=== PATIENT | female | born 1995 | race African-American/Black ===

== ENCOUNTER 2016-07-19 18:41 | Emergency (ER) | payer SELFPAY ==
[2016-07-19] MEDS ORDERED: IBUPROFEN 800 MG TABLET PO ONE (20:05)
--- NOTE | 2016-07-19 20:05 | ER Document Report ---
ED Medical Screen (RME) - General Chief Complaint: Toothache Stated Complaint: TOOTH PAIN Time seen by provider: 20:03 Mode of Arrival: Ambulatory Information source: Patient Notes: 21-year-old female presents to ED for dental pain to the right lower jaw next to the back tooth started 2 days ago. This tooth is broken off at the jaw line. Last menstrual period 06/15/2016. She states she took a test which was negative. I have greeted and performed a rapid initial assessment of this patient. A comprehensive ED assessment and evaluation of the patient, analysis of test results and completion of medical decision making process will be conducted by an additional ED providers. TRAVEL OUTSIDE OF THE [place] IN LAST 30 DAYS: No - Related Data Allergies/Adverse Reactions: No Known Drug Allergies Allergy (Verified 09/30/15 13:29) Shellfish * [Shellfish] Allergy (Verified 09/30/15 13:29) swelling strawberry Allergy (Verified 09/30/15 13:29) swelling Past Medical History - Social History Family history: Reviewed & Not Pertinent Pulmonary Medical History: Reports: Hx Asthma Neurological Medical History: Reports: Hx Migraine Psychiatric Medical History: Reports: Hx Attention Deficit Hyperactivity Disorder, Hx Bipolar Disorder, Hx Depression, Hx Schizophrenia Past Surgical History: Reports: Hx Oral Surgery - Immunizations Immunizations up to date: Yes Hx Diphtheria, Pertussis, Tetanus Vaccination: Yes Physical Exam - Vital signs Vitals: Temp Pulse Resp BP Pulse Ox 99.6 F 97 20 114/76 100 07/19/16 19:56 07/19/16 19:56 07/19/16 19:56 07/19/16 19:56 07/19/16 19:56 Course - Vital Signs Vital signs: Temp Pulse Resp BP Pulse Ox 99.6 F 97 20 114/76 100 07/19/16 19:56 07/19/16 19:56 07/19/16 19:56 07/19/16 19:56 07/19/16 19:56
[2016-07-19] MEDS ORDERED: HYDROCODONE/ACETAMINOPHEN 5-325 MG 6 TAB/DSPK PO PRN (22:17)
[2016-07-19 22:18] VITALS: BP 111/77
[2016-07-19] MEDS ORDERED: AMOXICILLIN TR/POT CLAVULANATE 500-125 MG TAB PO ONE (22:18)
--- NOTE | 2016-07-19 22:24 | ER Document Report ---
ED General - General Chief Complaint: Toothache Stated Complaint: TOOTH PAIN Mode of Arrival: Ambulatory Information source: Patient Notes: Patient is a 21 year old female who presents with 2 day history of right lower jaw pain and toothache. She states the pain radiates to her right ear and was told by her mother she had a fever but doesn't remember what the temperature was. She has not seen a dentist for this. She has tried [id number] ibuprofen with no relief. Denies any drainage, chills, difficulty breathing or difficulty swallowing, nausea or vomiting. TRAVEL OUTSIDE OF THE [place] IN LAST 30 DAYS: No - Related Data Allergies/Adverse Reactions: No Known Drug Allergies Allergy (Verified 09/30/15 13:29) Shellfish * [Shellfish] Allergy (Verified 09/30/15 13:29) swelling strawberry Allergy (Verified 09/30/15 13:29) swelling Past Medical History - General Information source: Patient - Social History Smoking Status: Current Every Day Smoker Chew tobacco use (# tins/day): No Frequency of alcohol use: None Drug Abuse: None Family History: Reviewed & Not Pertinent, Other - gall bladder Patient has suicidal ideation: No Patient has homicidal ideation: No Pulmonary Medical History: Reports: Hx Asthma Neurological Medical History: Reports: Hx Migraine Renal/ Medical History: Denies: Hx Peritoneal Dialysis Psychiatric Medical History: Reports: Hx Attention Deficit Hyperactivity Disorder, Hx Bipolar Disorder, Hx Depression, Hx Schizophrenia Past Surgical History: Reports: Hx Oral Surgery - Immunizations Immunizations up to date: Yes Hx Diphtheria, Pertussis, Tetanus Vaccination: Yes Review of Systems - Review of Systems Constitutional: See HPI EENT: See HPI Cardiovascular: No symptoms reported Respiratory: No symptoms reported Gastrointestinal: No symptoms reported Genitourinary: No symptoms reported Female Genitourinary: No symptoms reported Musculoskeletal: No symptoms reported Skin: No symptoms reported Hematologic/Lymphatic: No symptoms reported Neurological/Psychological: No symptoms reported Physical Exam - Vital signs Vitals: Temp Pulse Resp BP Pulse Ox 99.6 F 97 20 114/76 100 07/19/16 19:56 07/19/16 19:56 07/19/16 19:56 07/19/16 19:56 07/19/16 19:56 Interpretation: Normal - Notes Notes: PHYSICAL EXAM: CONSTITUTIONAL: Alert and oriented, in no acute distress. Appears uncomfortable but non-toxic. HENT: Normocephalic, atraumatic. Dental decay to teeth #31-32 with mild gingival swelling, no evidence of fluctuant abscess. Oropharynx clear without erythema, tonsilar exudate or malocclusion. Trachea midline. Uvula midline. Moist mucous membranes. EYES: Pupils equal round and reactive to light, EOM intact. Sclera anicteric, conjunctiva are normal. No entrapment. NECK: supple without lymphadenopathy. No midline tenderness or paraspinous muscle spasms. No step-offs or deformities. ROM intact. HEART: Regular rate and rhythm without murmurs. LUNGS: CTAB and equal. No wheezes, rales or rhonchi. EXTREMITIES: Normal range of motion, no pitting edema. No cyanosis. Cap Refill < 3 seconds. SKIN: Warm and dry. Normal turgor. No rashes or lesions noted. Course - Re-evaluation Re-evalutation: 07/19/16 22:20 Patient seen and examined. Dental decay to teeth #31-32 with mild gingival swelling but no fluctuant abscess. VSS, non-toxic in appearance. Will treat empirically with antibiotics and pain medication, first dose given here. Advised to follow-up with dentist - provided affordable options. At this time, will discharge with return precautions and follow-up recommendations. Verbal discharge instructions given at the bedside and opportunity for questions given. Medication warnings reviewed. Patient is in agreement with this plan and has verbalized understanding of return precautions and the need for primary care follow-up in the next 24-72 hours. - Vital Signs Vital signs: Temp Pulse Resp BP Pulse Ox 99.6 F 87 16 111/77 98 07/19/16 19:56 07/19/16 22:17 07/19/16 22:17 07/19/16 22:17 07/19/16 22:17 Discharge - Discharge Clinical Impression: Dental decay, Toothache Condition: Stable Disposition: HOME, SELF-CARE Additional Instructions: TOOTHACHE: Your pain is due to dental decay. The tooth must be repaired in order for you to feel better. You will, therefore, be referred to a dentist. We do not have dentists on the staff at [facility]. Severe swelling or drainage around a tooth usually means a dental abscess. This also requires evaluation and treatment by the dentist, but antibiotics may be prescribed while awaiting dental treatment. You should be rechecked immediately if you develop major swelling of the face, increasing pain, a lump in the jaw or gums, headache, difficulty swallowing, or fever. ORAL NARCOTIC MEDICATION: You have been given a prescription for pain control. This medication is a narcotic. It's best taken with food, as nausea can result if taken on an empty stomach. Don't operate machinery or drive within six hours of taking this medication. Do not combine this medicine with alcohol, or with any medication which can cause sedation (such as cold tablets or sleeping pills) unless you get permission from the physician. Narcotics tend to cause constipation. If possible, drink plenty of fluids and eat a diet high in fiber and fruits. Please be aware that prescription narcotics also have the potential for abuse. People become addicted to these medications because of the general sense of wellbeing that they induce. This feeling along with a significant reduction in tension, anxiety, and aggression provides a stimulating seductive quality to these drugs. Once your pain is under control, we encourage you to discard your unused narcotics. FOLLOW-UP CARE: You have been referred for follow-up care to the dentists listed below. Call the dentists office for an appointment as you were instructed or within the next two days. If you experience worsening or a significant change in your symptoms, notify the physician immediately or return to the Emergency Department at any time for re-evaluation. [facility] [address] [place], [place] Tuesday mornings, by appointment [facility] [address] [place] [address] [facility] [address] [facility] [address] [facility] [address] [facility] [employer] [facility] [address] [email or web address] [address] [place] [address] Tuesday- 8:00am to 5:00 pm Will see patients from other [facility]. Charges based on income and family size and accepts Medicare, Medicaid, and Insurances Will pull molars [facility] [address] Hours of Operation 8:00 am - 4:30 pm weekdays The following dental offices accept Medicaid: [facility] Dr. Sawyer Dr. Morales Dr. Cleary Dr. Moore Lizandro Crocker, [place], and [place] oral surgery Dr. Gold ([place]) Dr. Dey ([place]) [facility] Drs. Fisher and Samuel ([place]) Dr. Shelley ([place]) [facility] Dr. Li ([place]) Drs. Gurrola and ([place]) Medicaid Care Line Prescriptions: Amox Tr/Potassium Clavulanate [Augmentin 875-125 Tablet] 1 tab PO BID 10 Days Hydrocodone/Acetaminophen [[place] 5-325 mg Tablet] 1 tab PO Q6H PRN #10 tablet PRN Reason: Ibuprofen [Motrin 600 Mg Tablet] 600 mg PO TID #15 tablet Forms: Return to Work
== END 2016-07-19 22:28 | disposition home or self-care (01) ==
LOC: ER 18:41
DX: K02.9 Dental caries, unspecified (principal); K08.89 Other specified disorders of teeth and supporting structures; R68.84 Jaw pain; R50.9 Fever, unspecified; F17.200 Nicotine dependence, unspecified, uncomplicated
CPT/HCPCS: 99282

== ENCOUNTER 2016-07-29 05:49 | Emergency (ER) | payer SELFPAY ==
[2016-07-29] MEDS ORDERED: LIDOCAINE 2% VISCOUS SOLN 20 ML UDCUP PO ONE (08:03)
[2016-07-29] MEDS ORDERED: PENICILLIN V POTASSIUM 500 MG TABLET PO ONE (08:03)
[2016-07-29] MEDS ORDERED: IBUPROFEN 800 MG TABLET PO ONE (08:03)
--- NOTE | 2016-07-29 08:04 | ER Document Report ---
HPI - HPI Patient complains to provider of: dental pain Onset: Other - 2 weeks Onset/Duration: Gradual Quality of pain: Throbbing Pain Level: 5 Context: 21-year-old female with a decayed tooth to the pulp is complaining of tooth pain and right-sided facial pain radiating into the right ear for 2 weeks. She has finished her antibiotics and has not seen a dentist because she has to get her Medicaid straightened out. No fever or chills. No facial swelling. Associated Symptoms: None Exacerbated by: Denies Relieved by: Denies Similar symptoms previously: Yes Recently seen / treated by doctor: No - ROS ROS below otherwise negative: Yes Systems Reviewed and Negative: Yes All other systems reviewed and negative - REPRODUCTIVE LMP: 07-23-16 Reproductive: DENIES: : - DERM Skin Color: Normal <SELENA COX - Last Filed: 07/29/16 22:09> Past Medical History - General Information source: Patient - Social History Smoking Status: Current Every Day Smoker Chew tobacco use (# tins/day): No Frequency of alcohol use: Social Drug Abuse: None Lives with: Family Family History: Reviewed & Not Pertinent, Other - gall bladder Patient has suicidal ideation: No Patient has homicidal ideation: No Pulmonary Medical History: Reports: Hx Asthma Neurological Medical History: Reports: Hx Migraine Renal/ Medical History: Denies: Hx Peritoneal Dialysis Psychiatric Medical History: Reports: Hx Attention Deficit Hyperactivity Disorder, Hx Bipolar Disorder, Hx Depression, Hx Schizophrenia Past Surgical History: Reports: Hx Oral Surgery - Immunizations Immunizations up to date: Yes Hx Diphtheria, Pertussis, Tetanus Vaccination: Yes <SELENA COX - Last Filed: 07/29/16 22:09> Vertical Provider Document - CONSTITUTIONAL Agree With Documented VS: Yes Exam Limitations: No Limitations - INFECTION CONTROL TRAVEL OUTSIDE OF THE [place] IN LAST 30 DAYS: No - HEENT HEENT: Normocephalic Notes: Decayed tooth to the pulp first molar lower right - NECK Neck: Supple. negative: Lymphadenopathy-Left, Lymphadenopathy-Right - RESPIRATORY O2 Sat by Pulse Oximetry: 97 - NEURO Level of Consciousness: Awake, Alert, Appropriate - DERM Integumentary: Warm, Dry <SELENA COX - Last Filed: 07/29/16 22:09> Course - Vital Signs Vital signs: Temp Pulse Resp BP Pulse Ox 97.9 F 80 114/89 H 97 07/29/16 05:54 07/29/16 05:54 07/29/16 05:54 07/29/16 05:54 <SELENA COX - Last Filed: 07/29/16 22:09> - Vital Signs Vital signs: Temp Pulse Resp BP Pulse Ox 98.0 F 75 16 110/85 97 07/29/16 08:38 07/29/16 08:38 07/29/16 08:38 07/29/16 08:38 07/29/16 22:09 <JUAN PABLO SHAH - Last Filed: 07/30/16 05:31> Discharge <SELENA COX - Last Filed: 07/29/16 22:09> <JUAN PABLO SHAH - Last Filed: 07/30/16 05:31> - Discharge Clinical Impression: dental pain and decay Condition: Good Disposition: HOME, SELF-CARE Instructions: Penicillin V K ([facility]), Toothache ([facility]), Anti-Inflammatory Medication ([facility]), Acetaminophen, Dentist Additional Instructions: See the dentist Return to the emergency room any concerns Please complete the patient satisfaction survey if you get one, and return it.. If you do not receive a survey, then you can go to the [facility] website, [email or web address] and place your comments about your very good care. Thank you very much. It was a pleasure being your medical provider today. Prescriptions: Ibuprofen [Motrin 800 mg Tablet] 800 mg PO Q8HP PRN #30 tablet PRN Reason: Penicillin V Potassium [Penicillin Vk 500 mg Tablet] 500 mg PO QID #40 tablet
[2016-07-29] MEDS ORDERED: IBUPROFEN 800 MG TABLET ONE (08:18)
[2016-07-29 08:42] VITALS: BP 110/85
== END 2016-07-29 08:42 | disposition home or self-care (01) ==
LOC: ER 05:49
DX: K02.9 Dental caries, unspecified (principal); K08.89 Other specified disorders of teeth and supporting structures; F17.200 Nicotine dependence, unspecified, uncomplicated; J45.909 Unspecified asthma, uncomplicated
CPT/HCPCS: 99282; J3490

== ENCOUNTER 2016-09-29 06:43 | Emergency (ER) | payer SELFPAY ==
--- NOTE | 2016-09-29 07:43 | RADIOLOGY REPORT (SQ) ---
EXAM DESCRIPTION: CHEST PA/LAT COMPLETED DATE/TIME: 09/29/2016 7:12 am REASON FOR STUDY: productive cough COMPARISON: 02/06/2016. EXAM PARAMETERS: NUMBER OF VIEWS: two views TECHNIQUE: Digital Frontal and Lateral radiographic views of the chest acquired. RADIATION DOSE: NA LIMITATIONS: none FINDINGS: LUNGS AND PLEURA: No opacities, masses or pneumothorax. No pleural effusion. MEDIASTINUM AND HILAR STRUCTURES: No masses or contour abnormalities. HEART AND VASCULAR STRUCTURES: Heart normal size. No evidence for failure. BONES: No acute findings. HARDWARE: None in the chest. OTHER: No other significant finding. IMPRESSION: NO SIGNIFICANT RADIOGRAPHIC FINDING IN THE CHEST. TECHNICAL DOCUMENTATION: JOB ID: [id number] [employer]- All Rights Reserved
[2016-09-29] MEDS ORDERED: ALBUTEROL SULFATE 0.083% NEB 2.5 MG/3 ML AMPUL NEB ONE (08:01)
[2016-09-29] MEDS ORDERED: PENICILLIN V POTASSIUM 500 MG TABLET PO ONE (08:01)
--- NOTE | 2016-09-29 08:02 | ER Document Report ---
HPI - HPI Pain Level: 4 Context: Patient is a 21-year-old female presents emergency, complaining of sore throat and dry cough for the past 3 days. 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 She admits to painful swallowing, denies any fever, chills, difficulty breathing, trismus, muffled speech. Patient does have a history of asthma. Is a tobacco user - REPRODUCTIVE Reproductive: DENIES: : - DERM Skin Color: Normal Past Medical History - Social History Smoking Status: Current Every Day Smoker Family History: Reviewed & Not Pertinent, Other - gall bladder Pulmonary Medical History: Reports: Hx Asthma Neurological Medical History: Reports: Hx Migraine Renal/ Medical History: Denies: Hx Peritoneal Dialysis Psychiatric Medical History: Reports: Hx Attention Deficit Hyperactivity Disorder, Hx Bipolar Disorder, Hx Depression, Hx Schizophrenia Past Surgical History: Reports: Hx Oral Surgery - Immunizations Immunizations up to date: Yes Hx Diphtheria, Pertussis, Tetanus Vaccination: Yes Vertical Provider Document - CONSTITUTIONAL Agree With Documented VS: Yes Exam Limitations: No Limitations General Appearance: WD/WN, No Apparent Distress Notes: PHYSICAL EXAM GENERAL: Alert, interacts well. HEAD: Normocephalic, atraumatic. EYES: Pupils equal, round, and reactive to light. Extraocular movements intact. ENT: Oral mucosa moist, tongue midline. Uvula midline. Airway patent. No evidence of tonsillar enlargement, peritonsillar abscess, retropharyngeal abscess. NECK: Full range of motion. Supple. Trachea midline. LUNGS: Clear to auscultation bilaterally, no wheezes, rales, or rhonchi. No respiratory distress. HEART: Regular rate and rhythm. No murmurs, gallops, or rubs. ABDOMEN: Soft, nondistended, nontender. No guarding, rebound, or rigidity.. Bowel sounds present in all 4 quadrants. EXTREMITIES: Moves all 4 extremities spontaneously. No edema, radial and dorsalis pedis pulses 2/4 bilaterally. No cyanosis. NEUROLOGICAL: Alert and oriented x4. Normal speech. PSYCH: Normal affect, normal mood. SKIN: Warm, dry, normal turgor. No rashes or lesions noted. - INFECTION CONTROL TRAVEL OUTSIDE OF THE [place].S. IN LAST 30 DAYS: No - RESPIRATORY O2 Sat by Pulse Oximetry: 100 Course - Re-evaluation Re-evalutation: 09/29/16 19:17 Patient is a 21-year-old female who is hemodynamically stable, no acute distress and afebrile. With positive strep. No evidence of peritonsillar or retropharyngeal abscess. Tolerating p.o. without any difficulty. Will discharge patient home on antibiotics with strict return precautions. Otherwise will follow up with primary care as needed - Vital Signs Vital signs: Temp Pulse Resp BP Pulse Ox 98.0 F 91 18 102/74 100 09/29/16 06:51 09/29/16 06:51 09/29/16 06:51 09/29/16 06:51 09/29/16 06:51 Discharge - Discharge Clinical Impression: Strep pharyngitis Condition: Good Disposition: HOME, SELF-CARE Instructions: Strep Throat ([facility]) Prescriptions: Penicillin V Potassium [Penicillin Vk 500 mg Tablet] 500 mg PO BID #20 tablet Forms: Return to Work Referrals: PRESTON LORENZO MD [Primary Care Provider] - Follow up as needed
[2016-09-29 08:59] VITALS: BP 106/61
== END 2016-09-29 08:25 | disposition home or self-care (01) ==
LOC: ER 06:43
DX: J02.0 Streptococcal pharyngitis (principal); R05 Cough; J45.909 Unspecified asthma, uncomplicated; F17.200 Nicotine dependence, unspecified, uncomplicated
CPT/HCPCS: 71020; 87880; 99283

== ENCOUNTER 2016-11-01 21:47 | Emergency (ER) | payer SELFPAY ==
[2016-11-02 00:48] LABS: APPEARANCE,URINE SLIGHTLY-CLOUDY; BILIRUBIN,URINE NEGATIVE (NEGATIVE); GLUCOSE, URINE NEGATIVE (NEGATIVE); KETONES,URINE NEGATIVE (NEGATIVE); LEUKOCYTE ESTERASE,URINE TRACE (NEGATIVE); NITRITE,URINE NEGATIVE (NEGATIVE); PROTEIN,URINE 30 mg/dL (NEGATIVE); URINE SPECIFIC GRAVITY 1.036
[2016-11-02] MEDS ORDERED: FAMOTIDINE 20 MG TABLET PO ONE (00:48)
[2016-11-02] MEDS ORDERED: PROMETHAZINE HCL 25 MG TABLET PO ONE (00:48)
--- NOTE | 2016-11-02 00:51 | ER Document Report ---
ED General - General Chief Complaint: Abdominal Pain Stated Complaint: SHORTNESS OF BREATH/BACK PAIN Time Seen by Provider: 11/02/16 00:39 Notes: Patient is a 21-year-old female who comes emergency department for chief complaint of mid upper abdominal pain, nausea, increased discomfort with eating , intermittent sharp pains across the top of her chest, sensation of shortness of breath, and some lower back "spasms" that are worse on the left side. She denies any injuries. Symptoms have been worse for the past 2 days. She denies abnormal bowel movements, dysuria, fever. History of asthma, does not have an inhaler, takes no daily medications, LMP 2 weeks ago. TRAVEL OUTSIDE OF THE [place] IN LAST 30 DAYS: No - Related Data Allergies/Adverse Reactions: No Known Drug Allergies Allergy (Verified 09/29/16 06:51) Shellfish * [Shellfish] Allergy (Verified 09/29/16 06:51) swelling strawberry Allergy (Verified 09/29/16 06:51) swelling Past Medical History - General Information source: Patient - Social History Smoking Status: Current Every Day Smoker Chew tobacco use (# tins/day): No Smoking Education Provided: Yes - < 3min Frequency of alcohol use: Social Drug Abuse: Marijuana Lives with: Family Family History: Reviewed & Not Pertinent, Other - gall bladder Pulmonary Medical History: Reports: Hx Asthma Neurological Medical History: Reports: Hx Migraine Renal/ Medical History: Denies: Hx Peritoneal Dialysis Psychiatric Medical History: Reports: Hx Attention Deficit Hyperactivity Disorder, Hx Bipolar Disorder, Hx Depression, Hx Schizophrenia Past Surgical History: Reports: Hx Oral Surgery - Immunizations Immunizations up to date: Yes Hx Diphtheria, Pertussis, Tetanus Vaccination: Yes Review of Systems - Review of Systems Constitutional: See HPI EENT: No symptoms reported Cardiovascular: See HPI Respiratory: See HPI Gastrointestinal: See HPI Genitourinary: See HPI Female Genitourinary: See HPI Musculoskeletal: No symptoms reported Skin: No symptoms reported Hematologic/Lymphatic: No symptoms reported Neurological/Psychological: No symptoms reported Physical Exam - Vital signs Vitals: Temp Pulse Resp BP Pulse Ox 97.8 F 80 20 110/75 98 11/02/16 02:58 11/02/16 02:58 11/02/16 02:58 11/02/16 02:58 11/02/16 02:58 Interpretation: Normal - General General appearance: Appears well, Alert In distress: None - HEENT Head: Normocephalic, Atraumatic Eyes: Normal Conjunctiva: Normal Extraocular movements intact: Yes Eyelashes: Normal Pupils: PERRL Mouth/Lips: Normal Mucous membranes: Normal Pharynx: Normal Neck: Normal - Respiratory Respiratory status: No respiratory distress Chest status: Nontender Breath sounds: Normal Chest palpation: Normal - Cardiovascular Rhythm: Regular Heart sounds: Normal auscultation Murmur: No - Abdominal Inspection: Normal Distension: No distension Bowel sounds: Normal Tenderness: Tender - Normal left upper quadrant pain, otherwise soft and nontender abdomen Organomegaly: No organomegaly - Back Back: Normal, Nontender - Extremities General upper extremity: Normal inspection, Nontender, Normal color, Normal ROM , Normal temperature General lower extremity: Normal inspection, Nontender, Normal color, Normal ROM , Normal temperature, Normal weight bearing. No: Merritt's sign - Neurological Neuro grossly intact: Yes Cognition: Normal Orientation: AAOx4 Manny Coma Scale Eye Opening: Spontaneous Manny Coma Scale Verbal: Oriented Manny Coma Scale Motor: Obeys Commands [place] Coma Scale Total: 15 Speech: Normal Motor strength normal: LUE, RUE, LLE, RLE Sensory: Normal - Psychological Associated symptoms: Normal affect, Normal mood - Skin Skin Temperature: Warm Skin Moisture: Dry Skin Color: Normal Course - Re-evaluation Re-evalutation: Patient asymptomatic after Pepcid. Patient with very minimal left upper quadrant pain on exam, no CVA tenderness, well-appearing. Soft abdomen otherwise. No distress. Clear lungs on auscultation. She is vague with her symptoms and she is well-appearing. EKG, chest x-ray unremarkable, anemia noted, no leukocytosis, chemistry unremarkable , urine shows borderline infection with positive . Patient informed of status, she is happy about this, placing on Keflex antibiotic, referring to [facility], discussed return precautions, patient states understanding and agreement. - Vital Signs Vital signs: Temp Pulse Resp BP Pulse Ox 97.8 F 80 20 110/75 98 11/02/16 02:58 11/02/16 02:58 11/02/16 02:58 11/02/16 02:58 11/02/16 02:58 - Laboratory Result Diagrams: 11/02/16 01:20 11/02/16 01:20 Laboratory results interpreted by me: 11/02/16 11/02/16 11/02/16 00:15 00:15 01:20 Hgb 10.3 L Hct 32.7 L MCV 71 L MCH 22.5 L MCHC 31.6 L RDW 18.5 H Urine Protein 30 H Urine Urobilinogen 2.0 H Ur Leukocyte Esterase TRACE H Urine HCG, Qual POSITIVE H Discharge - Discharge Clinical Impression: Nausea, Upper abdominal pain, Flank pain Chest pain Qualifiers: Chest pain type: unspecified Qualified Code(s): R07.9 - Chest pain, unspecified Disposition: HOME, SELF-CARE Additional Instructions: Your test is positive. Your workup also indicates dehydration, urinary tract infection, and suspected inflammation in your stomach. Take the Keflex, Zofran, and Pepcid as prescribed. Begin vitamins. With primary care for additional management, either [facility] or the health department. Department for any concerning symptoms Prescriptions: Cephalexin Monohydrate [Keflex 500 mg Capsule] 500 mg PO BID #10 capsule Famotidine [Pepcid 20 mg Tablet] 20 mg PO BID #20 tablet Ondansetron [Zofran Odt 4 mg Tablet] 1 - 2 tab PO Q4H PRN #15 tab.rapdis PRN Reason: For Nausea/Vomiting
[2016-11-02 01:33] LABS: ABSOLUTE LYMPHOCYTES (AUTO) 2.1 10^3/uL (0.5-4.7); ABSOLUTE MONOCYTES (AUTO) 0.6 10^3/uL (0.1-1.4); ABSOLUTE NEUT (AUTO) 3.7 10^3/uL (1.7-8.2); BASOPHILS % (AUTO) 0.5 % (0-2); EOSINOPHILS % (AUTO) 0.5 % (0-6); HEMATOCRIT 32.7 % (36.0-47.0); HEMOGLOBIN 10.3 g/dL (12.0-15.5); HGB HCT DIFFERENCE -1.8; LYMPHOCYTES % (AUTO) 31.7 % (13-45); MEAN CORPUSCULAR HEMOGLOBIN 22.5 pg (27.0-33.4); MEAN CORPUSCULAR HGB CONC 31.6 g/dL (32.0-36.0); MEAN CORPUSCULAR VOLUME 71 fl (80-97); MONOCYTES % (AUTO) 9.9 % (3-13); RED BLOOD COUNT 4.58 10^6/uL (3.72-5.28); RED CELL DISTRIBUTION WIDTH 18.5 % (11.5-14.0); SEGMENTED NEUTROPHILS % (AUTO) 57.4 % (42-78); WHITE BLOOD COUNT 6.5 10^3/uL (4.0-10.5)
--- NOTE | 2016-11-02 01:41 | RADIOLOGY REPORT (SQ) ---
EXAM DESCRIPTION: CHEST PA/LAT COMPLETED DATE/TIME: 11/02/2016 1:32 am REASON FOR STUDY: er19 pain with coughing COMPARISON: 09/29/2016. EXAM PARAMETERS: NUMBER OF VIEWS: two views TECHNIQUE: Digital Frontal and Lateral radiographic views of the chest acquired. RADIATION DOSE: NA LIMITATIONS: none FINDINGS: LUNGS AND PLEURA: No opacities, masses or pneumothorax. No pleural effusion. MEDIASTINUM AND HILAR STRUCTURES: No masses or contour abnormalities. HEART AND VASCULAR STRUCTURES: Heart normal size. No evidence for failure. BONES: No acute findings. HARDWARE: None in the chest. OTHER: No other significant finding. IMPRESSION: NO SIGNIFICANT RADIOGRAPHIC FINDING IN THE CHEST. TECHNICAL DOCUMENTATION: JOB ID: [id number] [place]- All Rights Reserved
[2016-11-02 01:55] LABS: ALANINE AMINOTRANSFERASE 26 U/L (9-52); ALBUMIN 3.8 g/dL (3.5-5.0); ALKALINE PHOSPHATASE 73 U/L (38-126); ANION GAP 10 (5-19); ASPARTATE AMINO TRANSFERASE 17 U/L (14-36); BILIRUBIN,DIRECT 0.3 mg/dL (0.0-0.4); BILIRUBIN,TOTAL 0.3 mg/dL (0.2-1.3); BLOOD UREA NITROGEN 14 mg/dL (7-20); CALCIUM 8.8 mg/dL (8.4-10.2); CARBON DIOXIDE 24 mmol/L (22-30); CHLORIDE 105 mmol/L (98-107); CREATININE RESULT 0.76 mg/dL (0.52-1.25); GLUCOSE 93 mg/dL (75-110); LIPASE 277.1 U/L (23-300); POTASSIUM 3.9 mmol/L (3.6-5.0); SODIUM 139.3 mmol/L (137-145); TOTAL PROTEIN 7.2 g/dL (6.3-8.2)
[2016-11-02 02:59] VITALS: BP 110/75
--- NOTE | 2016-11-02 10:22 | EKG REPORT ---
SEVERITY:- BORDERLINE ECG - SINUS RHYTHM BORDERLINE LEFT AXIS DEVIATION BORDERLINE T ABNORMALITIES, INFERIOR LEADS : Confirmed by: Johny Youngblood MD 02-Nov-2016 10:22:05
== END 2016-11-02 02:58 | disposition home or self-care (01) ==
LOC: ER 21:47
DX: R10.10 Upper abdominal pain, unspecified (principal); R11.0 Nausea; R07.9 Chest pain, unspecified; F17.200 Nicotine dependence, unspecified, uncomplicated; Z32.01 Encounter for pregnancy test, result positive; Z91.013 Allergy to seafood
CPT/HCPCS: 36415; 71020; 80053; 81001; 81025; 83690; 85025; 93005; 93010; 99284

== ENCOUNTER 2016-12-10 19:23 | Emergency (ER) | payer SELFPAY ==
[2016-12-10] MEDS ORDERED: ACETAMINOPHEN 325 MG TABLET PO ONE (21:07)
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
[2016-12-11 02:16] VITALS: BP 107/75
== END 2016-12-10 22:36 | disposition home or self-care (01) ==
LOC: ER 19:23
DX: R51 Headache (principal); R07.9 Chest pain, unspecified; F17.210 Nicotine dependence, cigarettes, uncomplicated; Y09 Assault by unspecified means
CPT/HCPCS: 70450; 99284

== ENCOUNTER 2017-01-17 14:02 | Emergency (ER) | payer SELFPAY ==
[2017-01-17] MEDS ORDERED: DEXAMETHASONE SOD PHOS INJ 10 MG/1 ML VIAL IM ONE (15:12)
--- NOTE | 2017-01-17 15:16 | ER Document Report ---
ED Respiratory Problem - General Chief Complaint: Cold Symptoms Stated Complaint: CHEST PAIN/BAD COUGH Time Seen by Provider: 01/17/17 14:58 Mode of Arrival: Ambulatory Notes: 21-year-old female presents to ED for cough and cold symptoms 4 days. She states she is Congestion and headache. She is 15 weeks states she had to sit up all night last night because she cannot breathe. She does have a history of asthma and has a albuterol pump at home. She states she had to use it last night. TRAVEL OUTSIDE OF THE [place] IN LAST 30 DAYS: No - HPI Patient complains to provider of: Asthma, COPD Onset: Other - 4 days Duration: Continuous Initiating Event: URI Quality of pain: Other - Sharp Severity: Moderate Pain Level: 3 Context: Hx asthma Short of Breath: Mild Cough: Nonproductive Sputum amount: None At home treatment: Bronchodilators Associated symptoms: Chills, Congestion, Cough, PND, Runny nose, Sinus pain/ pressure, Sore Throat, Wheezing. denies: Fever Similar symptoms previously: Yes Recently seen / treated by doctor: No - Related Data Allergies/Adverse Reactions: No Known Drug Allergies Allergy (Verified 01/17/17 14:23) Shellfish * [Shellfish] Allergy (Verified 01/17/17 14:23) swelling strawberry Allergy (Verified 01/17/17 14:23) swelling Past Medical History - General Information source: Patient - Social History Smoking Status: Never Smoker Cigarette use (# per day): No Chew tobacco use (# tins/day): No Smoking Education Provided: No Frequency of alcohol use: None Drug Abuse: None Lives with: Family Family History: Other - gall bladder Patient has suicidal ideation: No Patient has homicidal ideation: No - Past Medical History Cardiac Medical History: Reports: None Pulmonary Medical History: Reports: Hx Asthma EENT Medical History: Reports: None Neurological Medical History: Reports: Hx Migraine Endocrine Medical History: Reports: None Renal/ Medical History: Reports: None Malignancy Medical History: Reports: None GI Medical History: Reports: None Musculoskeltal Medical History: Reports None Skin Medical History: Reports None Psychiatric Medical History: Reports: Hx Attention Deficit Hyperactivity Disorder, Hx Bipolar Disorder, Hx Depression, Hx Schizophrenia Traumatic Medical History: Reports: None Infectious Medical History: Reports: None Past Surgical History: Reports: Hx Oral Surgery - Immunizations Immunizations up to date: Yes Hx Diphtheria, Pertussis, Tetanus Vaccination: Yes Review of Systems - Review of Systems Constitutional: Recent illness EENT: Nose discharge, Sinus pressure, Sinus discharge Cardiovascular: No symptoms reported Respiratory: Cough, Wheezing Gastrointestinal: No symptoms reported Genitourinary: No symptoms reported Female Genitourinary: No symptoms reported Musculoskeletal: No symptoms reported Skin: No symptoms reported Hematologic/Lymphatic: No symptoms reported Neurological/Psychological: No symptoms reported -: Yes All other systems reviewed and negative Physical Exam - Vital signs Vitals: Temp Pulse Resp BP Pulse Ox 98.3 F 100 18 124/67 100 01/17/17 14:25 01/17/17 14:25 01/17/17 14:25 01/17/17 14:25 01/17/17 14:25 Interpretation: Normal - General General appearance: Appears well, Alert - HEENT Head: Normocephalic, Atraumatic Eyes: Normal Pupils: PERRL Ears: Normal External canal: Normal Tympanic membrane: Normal Sinus: Normal Nasal: Normal Mouth/Lips: Normal Mucous membranes: Normal Pharynx: Normal Neck: Normal - Respiratory Respiratory status: No respiratory distress. No: Respiratory distress Chest status: Nontender Breath sounds: Nonproductive cough, Wheezing. No: Decreased air movement Chest palpation: Normal - Cardiovascular Rhythm: Regular Heart sounds: Normal auscultation Murmur: No - Abdominal Inspection: Normal Distension: No distension Bowel sounds: Normal Tenderness: Nontender Organomegaly: No organomegaly - Back Back: Normal, Nontender - Extremities General upper extremity: Normal inspection, Nontender, Normal color, Normal ROM , Normal temperature General lower extremity: Normal inspection, Nontender, Normal color, Normal ROM , Normal temperature, Normal weight bearing. No: Merritt's sign - Neurological Neuro grossly intact: Yes Cognition: Normal Orientation: AAOx4 [place] Coma Scale Eye Opening: Spontaneous [place] Coma Scale Verbal: Oriented [place] Coma Scale Motor: Obeys Commands Manny Coma Scale Total: 15 Speech: Normal Motor strength normal: LUE, RUE, LLE, RLE Sensory: Normal - Psychological Associated symptoms: Normal affect, Normal mood - Skin Skin Temperature: Warm Skin Moisture: Dry Skin Color: Normal Course - Re-evaluation Re-evalutation: 01/17/17 17:13 Patient was treated with dexamethasone and 2 albuterol treatments and is discharged home to use her albuterol pump for her asthma and to follow-up with her primary doctor and her OB doctor. - Vital Signs Vital signs: Temp Pulse Resp BP Pulse Ox 98.2 F 98 18 122/70 100 01/17/17 16:00 01/17/17 16:00 01/17/17 16:00 01/17/17 16:00 01/17/17 16:00 Discharge - Discharge Clinical Impression: Asthma affecting , antepartum URI (upper respiratory infection) Qualifiers: URI type: unspecified URI Qualified Code(s): J06.9 - Acute upper respiratory infection, unspecified Condition: Stable Disposition: HOME, SELF-CARE Additional Instructions: UPPER RESPIRATORY ILLNESS: You have a viral infection of the respiratory passages -- a "cold." This common infection causes nasal congestion, drainage, and often sore throat and cough. It is highly contagious. The disease usually lasts about 10 to 14 days. There is no "cure" for the viral infection -- it must run its course. If there is a complication, such as bacterial infection in the nose, sinuses, middle ear, or bronchial tubes, antibiotics may be required. The antibiotics won't affect the virus. Drink plenty of fluids. A humidifier may help. An expectorant medication or decongestant may make you more comfortable. Use acetaminophen or ibuprofen for fever or aches. See the doctor if fever persists over two days, if there is any significant worsening of your symptoms, or if you simply fail to improve as expected. BRONCHOSPASM: You have tightness in the bronchial tubes, called bronchospasm. This often occurs with bronchial infections. Allergies, inhaled chemicals, and polluted or cold air can also provoke bronchospasm. It's more likely in patients with asthma in the family. Emergency treatment of bronchospasm may include adrenaline shots or bronchodilator aerosol. You may feel lightheaded and have a rapid pulse for an hour or two. Rest and get plenty of fluids. At home, we'll treat you with a bronchodilator inhaler. Antibiotics and corticosteroids may be required for some patients. Until you recover, avoid chemical fumes, dusts, pollens, and exercising in very cold or dry air. If you smoke, stop now!! If you develop a fever, increased wheezing, chest pain, or severe shortness of breath, you should contact the doctor immediately. INHALED BRONCHODILATORS: You have received a treatment of and/or prescription for an inhaled bronchodilator -- a medication which stimulates the airways in the lung to dilate. This improves the flow of air in asthma, bronchitis, and emphysema. These medicines have some similarity to adrenaline, and can cause similar side effects: shakiness, racing heart, and a sense of nervousness. These side effects decrease with time. Contact your doctor if these side effects are severe. Do not over-use the medicine. Too-frequent use of the inhaler may make it ineffective. Call your doctor if the inhaler is not controlling your symptoms at the prescribed doses. STEROID MEDICATION: You have been given an injection of or oral medicine of the cortisone/ steroid class. This medication is used to control inflammation or allergy. Rodney t is usually only given for a short period of time, until the acute process subsides. There are usually no side effects from short-term use of cortisone-like medications. Some persons feel an increased sense of well-being and are not sleepy at bedtime. Long-term use of cortisone medications is best avoided, unless required for a severe condition. If your condition does not remit, or relapses after the course of corticosteroid medication, you should consult your physician. USE OF ACETAMINOPHEN (Tylenol): Acetaminophen may be taken for pain relief or fever control. It's much safer than aspirin, offering a wider range of "safe" dosages. It is safe during . Some brand names are Tylenol, Panadol, Datril, Anacin 3, Tempra, and Liquiprin. Acetaminophen can be repeated every four hours. The following are maximum recommended dosages: >89 pounds or adults 650 mg to 900 mg Acetaminophen can be repeated every four hours. Maximum dose not to exceed 4000 mg a day. Salt and soda solution 1 quart of water 1 tablespoon of salt 1 teaspoon of baking soda Mixed 3 ingredients together and boil for 1 minute Placed in a covered quart jar Use 1/2 ounce of cold solution to gargle 3 times a day FOLLOW-UP CARE: If you have been referred to a physician for follow-up care, call the physician s office for an appointment as you were instructed or within the next two days. If you experience worsening or a significant change in your symptoms, notify the physician immediately or return to the Emergency Department at any time for re-evaluation. Referrals: PRESTON LORENZO MD [Primary Care Provider] - Follow up as needed
[2017-01-17] MEDS: ALBUTEROL SULFATE 0.083% NEB 2.5 MG/3 ML AMPUL NEB SCH ×2 (15:30→15:37)
[2017-01-17 16:06] VITALS: BP 122/70
--- NOTE | 2017-01-17 19:25 | EKG REPORT ---
SEVERITY:- NORMAL ECG - SINUS RHYTHM : Confirmed by: Johny Youngblood MD 17-Jan-2017 19:24:34
== END 2017-01-17 16:05 | disposition home or self-care (01) ==
LOC: ER 14:02
DX: O99.512 Diseases of the respiratory system complicating pregnancy, second trimester (principal); J06.9 Acute upper respiratory infection, unspecified; J44.9 Chronic obstructive pulmonary disease, unspecified; J34.89 Other specified disorders of nose and nasal sinuses; O26.892 Other specified pregnancy related conditions, second trimester; R05 Cough; R51 Headache; R68.83 Chills (without fever); Z3A.15 15 weeks gestation of pregnancy; Z91.013 Allergy to seafood
CPT/HCPCS: 93005; 94640 ×2; 99283; 96372; 93010; J1100

== ENCOUNTER 2017-05-03 16:24 | Outpatient (CLI) | payer MEDICAID ==
[2017-05-03 17:15] LABS: APPEARANCE,URINE SLIGHTLY-CLOUDY; BILIRUBIN,URINE NEGATIVE (NEGATIVE); COLOR,URINE YELLOW; GLUCOSE, URINE NEGATIVE (NEGATIVE); KETONES,URINE NEGATIVE (NEGATIVE); LEUKOCYTE ESTERASE,URINE TRACE (NEGATIVE); NITRITE,URINE NEGATIVE (NEGATIVE); PROTEIN,URINE NEGATIVE (NEGATIVE)
[2017-05-03 17:34] LABS: URINE AMPHETAMINES SCREEN NEGATIVE; URINE BARBITURATES SCREEN NEGATIVE; URINE BENZODIAZEPINES SCREEN NEGATIVE; URINE COCAINE SCREEN NEGATIVE; URINE MARIJUANA (THC) SCREEN NEGATIVE; URINE METHADONE SCREEN NEGATIVE; URINE PHENCYCLIDINE SCREEN NEGATIVE
--- NOTE | 2017-05-03 19:37 | RADIOLOGY REPORT (SQ) ---
EXAM DESCRIPTION: U/S OB LIMITED COMPLETED DATE/TIME: 05/03/2017 7:03 pm REASON FOR STUDY: cervical length. pelvic pressure limited pnc COMPARISON: None. TECHNIQUE: Limited transabdominal grayscale ultrasound for evaluation of specific requested obstetri idalia parameters. LIMITATIONS: None. FINDINGS: CERVICAL LENGTH: 3.4 CM Closed. STONE: 15.6 cm. PRESENTATION: Cephalic. OTHER: No other significant findings. IMPRESSION: LIMITED OBSTETRICAL ULTRASOUND WITH MEASURED PARAMETERS DELINEATED ABOVE. Trimester of : Third trimester - 28 weeks to delivery. TECHNICAL DOCUMENTATION: JOB ID: [id number] [employer]- All Rights Reserved
== END 2017-05-03 19:39 | disposition home or self-care (01) ==
LOC: LC 16:24
PROVIDERS: ATTEND Obstetrics & Gynecology
PROC: 4A1HXCZ Monitoring of Products of Conception, Cardiac Rate, External Approach (ICD-10-PCS; principal; 2017-05-03)
DX: O47.03 False labor before 37 completed weeks of gestation, third trimester (principal); Z3A.31 31 weeks gestation of pregnancy
CPT/HCPCS: 59025; 76815; 80307; 81001

== ENCOUNTER 2017-05-28 16:20 | Outpatient (CLI) | payer MEDICAID ==
--- NOTE | 2017-05-28 16:32 | Non Stress Test Report ---
Non Stress Test Datetime Report Generated by CPN: 05/28/2017 16:32 DEMOGRAPHIC EGA NST: 31.2 INDICATION Indication for Study: Ordered by Provider VITAL SIGNS Pulse - NST: 86 RESP - NST: 18 NBPSYS NST: 110 NBPDIA NST: 57 URINE RESULTS Urine Protein, NST: Negative Urine Ketones - NST: Negative Urine Glucose - NST: Negative Urine Blood - NST: Negative MONITORING Monitor Explained: Monitor Explained; Test Explained; Patient Verbalized Understanding Time on Monitor: 05/03/2017 16:56 Time off Monitor: 05/03/2017 17:56 NST Duration: 60 NST INTERVENTIONS NST Interventions: None Physician Notified NST: Dr. Waqas BABY A: [id number] BABY A Movement : Present Contraction Frequency : None FHR Baseline : 135 Accelerations : 15X15 Decelerations : None Variability : Moderate 6-25bpm NST Review: Meets Criteria for Reactive NST NST Review and Verified By : K Susy RN NST Results: Reactive NST REPORT Report Trigger: Send Report
--- NOTE | 2017-05-28 16:55 | L&D Progress Notes ---
PROGRESS NOTES Datetime Report Generated by CPN: 05/28/2017 16:55 PROGRESS NOTE Impression Other: IUP at 34.6. labor contractions, back pain. Plan Other: Observation in triage. Comment: IUp at 34.6 contractions/labor. Back pain 1. observation 2. nst 3. IVF 4. nubain/phenergan 5. Dose of terbutaline VAGINAL EXAM Dilatation: 1 Effacement: 30 Station: -4 FETUS A FHR - Baseline: 150 Variability: Moderate 6-25bpm Accelerations: 15X15 Decelerations: None : 34.6 SIGNATURE SIGNATURE: [id number];[id number] SIGNATURE: [id number] Signature: with User ID: [email or web address]
[2017-05-28] MEDS ORDERED: PROMETHAZINE HCL INJ 25 MG/1 ML VIAL IV ONE (16:57)
[2017-05-28] MEDS ORDERED: NALBUPHINE HCL INJ 10 MG/1 ML AMPULE INJ ONE (16:57)
[2017-05-28] MEDS ORDERED: RINGERS SOLUTION,LACTATED 1,000 ML IV PRN (16:58)
[2017-05-28] MEDS ORDERED: TERBUTALINE SULFATE INJ/PF 1 MG/1 ML SDV SUBCUT ONE ×2 (17:00)
[2017-05-28 17:06] LABS: APPEARANCE,URINE CLEAR; BILIRUBIN,URINE NEGATIVE (NEGATIVE); COLOR,URINE YELLOW; GLUCOSE, URINE NEGATIVE (NEGATIVE); KETONES,URINE NEGATIVE (NEGATIVE); LEUKOCYTE ESTERASE,URINE NEGATIVE (NEGATIVE); NITRITE,URINE NEGATIVE (NEGATIVE); PROTEIN,URINE NEGATIVE (NEGATIVE); URINE SPECIFIC GRAVITY 1.012
[2017-05-28] MEDS ORDERED: NALBUPHINE HCL INJ 10 MG/1 ML AMPULE ONE (17:07)
[2017-05-28] MEDS ORDERED: PROMETHAZINE HCL INJ 25 MG/1 ML VIAL ONE (17:07)
[2017-05-28] MEDS ORDERED: TERBUTALINE SULFATE INJ/PF 1 MG/1 ML SDV ONE (17:07)
[2017-05-28 17:17] LABS: AMNISURE (ROM) NEGATIVE (NEGATIVE)
[2017-05-28 17:38] LABS: URINE AMPHETAMINES SCREEN NEGATIVE; URINE BARBITURATES SCREEN NEGATIVE; URINE BENZODIAZEPINES SCREEN NEGATIVE; URINE COCAINE SCREEN NEGATIVE; URINE MARIJUANA (THC) SCREEN NEGATIVE; URINE METHADONE SCREEN NEGATIVE; URINE PHENCYCLIDINE SCREEN NEGATIVE
[2017-05-29] MEDS ORDERED: IRON FUM PO SCH (10:00)
[2017-05-29] MEDS ORDERED: [UNRECOGNIZED DRUG - OTHER] PO SCH (10:00)
[2017-05-29] MEDS ORDERED: DSS PO SCH (10:00)
[2017-05-29] MEDS ORDERED: PRENAT PO SCH (10:00)
[2017-05-29] MEDS ORDERED: FOLIC PO SCH (10:00)
== END 2017-05-28 20:09 | disposition home or self-care (01) ==
LOC: LC 16:20
PROVIDERS: ATTEND Obstetrics & Gynecology
PROC: 4A1HXCZ Monitoring of Products of Conception, Cardiac Rate, External Approach (ICD-10-PCS; principal; 2017-05-28)
DX: O47.03 False labor before 37 completed weeks of gestation, third trimester (principal); Z3A.34 34 weeks gestation of pregnancy
CPT/HCPCS: 59025; 84112; 81001; 80307; J2300; J2550; J3105

== ENCOUNTER 2017-05-30 15:30 | Outpatient (CLI) | payer MEDICAID ==
[2017-05-30 16:35] LABS: APPEARANCE,URINE CLEAR; BILIRUBIN,URINE NEGATIVE (NEGATIVE); COLOR,URINE YELLOW; GLUCOSE, URINE NEGATIVE (NEGATIVE); KETONES,URINE TRACE mg/dL (NEGATIVE); LEUKOCYTE ESTERASE,URINE NEGATIVE (NEGATIVE); NITRITE,URINE NEGATIVE (NEGATIVE); PROTEIN,URINE NEGATIVE (NEGATIVE); URINE SPECIFIC GRAVITY 1.017
[2017-05-30 16:52] LABS: EOSINOPHILS % (AUTO) 0.2 % (0-6); HEMATOCRIT 25.1 % (36.0-47.0); MEAN CORPUSCULAR HEMOGLOBIN 21.4 pg (27.0-33.4); TOTAL CELLS COUNTED % (AUTO) 100 %
[2017-05-30 16:55] LABS: ABSOLUTE LYMPHOCYTES (AUTO) 0.8 10^3/uL (0.5-4.7); ABSOLUTE MONOCYTES (AUTO) 0.7 10^3/uL (0.1-1.4); ABSOLUTE NEUT (AUTO) 4.3 10^3/uL (1.7-8.2); BASOPHILS % (AUTO) 0.2 % (0-2); LYMPHOCYTES % (AUTO) 14.4 % (13-45); MEAN CORPUSCULAR HGB CONC 31.8 g/dL (32.0-36.0); MEAN CORPUSCULAR VOLUME 67 fl (80-97); MONOCYTES % (AUTO) 12.5 % (3-13); PLATELET COUNT 270 10^3/uL (150-450); RED BLOOD COUNT 3.73 10^6/uL (3.72-5.28); RED CELL DISTRIBUTION WIDTH 18.4 % (11.5-14.0); SEGMENTED NEUTROPHILS % (AUTO) 72.7 % (42-78); WHITE BLOOD COUNT 5.9 10^3/uL (4.0-10.5)
[2017-05-30 16:56] LABS: URINE AMPHETAMINES SCREEN NEGATIVE; URINE BARBITURATES SCREEN NEGATIVE; URINE BENZODIAZEPINES SCREEN NEGATIVE; URINE COCAINE SCREEN NEGATIVE; URINE MARIJUANA (THC) SCREEN NEGATIVE; URINE METHADONE SCREEN NEGATIVE; URINE PHENCYCLIDINE SCREEN NEGATIVE
[2017-05-30 17:34] LABS: RUBELLA INTERPRETATION POSITIVE
[2017-05-30 19:22] LABS: CHLAM PCR NOT DETECTED (NOT DETECT); GON PCR NOT DETECTED (NOT DETECT)
[2017-06-01 07:16] LABS: HEPATITS B SURFACE ANTIGEN Negative (Negative)
== END 2017-05-30 18:50 | disposition home or self-care (01) ==
LOC: LC 15:30
PROVIDERS: ATTEND Obstetrics & Gynecology
PROC: 4A1HXCZ Monitoring of Products of Conception, Cardiac Rate, External Approach (ICD-10-PCS; principal; 2017-05-30)
DX: O47.03 False labor before 37 completed weeks of gestation, third trimester (principal); O09.33 Supervision of pregnancy with insufficient antenatal care, third trimester; Z3A.35 35 weeks gestation of pregnancy
CPT/HCPCS: 36415; 59025; 80307; 81005; 85025; 86592; 86762; 86850; 86900; 86901; 87077; 87081; 87340; 87491; 87591

== ENCOUNTER → 2017-06-14 | Outpatient (CLI) | payer MEDICAID ==
[~2017-06-14] MED LIST: HYDROXYZINE PAMOATE 50 MG CAPSULE ONE
--- NOTE | 2017-06-14 15:32 | L&D Progress Notes ---
PROGRESS NOTES Datetime Report Generated by CPN: 06/14/2017 15:31 PROGRESS NOTE Comment: Seen at A this AM for uc's, non compliant with care, [facility], labs not done, GBS + at last labor check Sono 05-03-17 = STONE = 15.6, CL = 3.4cm 28 weeks Sono 03-04-17 @ [facility] = 22+5, male, Having irregular uc's, mild, difficult to keep on monitor Obtain Labs SIGNATURE SIGNATURE: [id number];[id number] Assignment: Nu Alan MD Signature: with User ID: [email or web address] : with User ID: [email or web address]
[2017-06-14 16:00] LABS: ABSOLUTE MONOCYTES (AUTO) 0.8 10^3/uL (0.1-1.4); BASOPHILS % (AUTO) 0.2 % (0-2); EOSINOPHILS % (AUTO) 0.4 % (0-6); HEMATOCRIT 24.7 % (36.0-47.0); LYMPHOCYTES % (AUTO) 17.9 % (13-45); MEAN CORPUSCULAR HEMOGLOBIN 20.9 pg (27.0-33.4); MEAN CORPUSCULAR HGB CONC 31.7 g/dL (32.0-36.0); MEAN CORPUSCULAR VOLUME 66 fl (80-97); MONOCYTES % (AUTO) 13.2 % (3-13); PLATELET COUNT 221 10^3/uL (150-450); RED BLOOD COUNT 3.74 10^6/uL (3.72-5.28); RED CELL DISTRIBUTION WIDTH 18.7 % (11.5-14.0); SEGMENTED NEUTROPHILS % (AUTO) 68.3 % (42-78); TOTAL CELLS COUNTED % (AUTO) 100 %; WHITE BLOOD COUNT 5.8 10^3/uL (4.0-10.5)
[2017-06-14 16:05] LABS: HEMOGLOBIN 7.8 g/dL (12.0-15.5)
--- NOTE | 2017-06-14 16:09 | L&D Progress Notes ---
PROGRESS NOTES Datetime Report Generated by CPN: 06/14/2017 16:08 PROGRESS NOTE Comment: VE 2/long/soft/post/vtx/high, no bleeding, Cat 1 strip, waiting sono FETUS C SIGNATURE: [id number];[id number] Assignment: Nu Alan MD Signature: with User ID: [email or web address] : with User ID: [email or web address]
[2017-06-14 16:16] LABS: APPEARANCE,URINE CLEAR; BILIRUBIN,URINE NEGATIVE (NEGATIVE); COLOR,URINE YELLOW; GLUCOSE, URINE NEGATIVE (NEGATIVE); KETONES,URINE NEGATIVE (NEGATIVE); LEUKOCYTE ESTERASE,URINE NEGATIVE (NEGATIVE); NITRITE,URINE NEGATIVE (NEGATIVE); PROTEIN,URINE NEGATIVE (NEGATIVE); URINE SPECIFIC GRAVITY 1.009
[2017-06-14 16:28] LABS: URINE AMPHETAMINES SCREEN NEGATIVE; URINE BARBITURATES SCREEN NEGATIVE; URINE BENZODIAZEPINES SCREEN NEGATIVE; URINE COCAINE SCREEN NEGATIVE; URINE MARIJUANA (THC) SCREEN NEGATIVE; URINE METHADONE SCREEN NEGATIVE; URINE PHENCYCLIDINE SCREEN NEGATIVE
[2017-06-14 16:46] LABS: RUBELLA INTERPRETATION POSITIVE
--- NOTE | 2017-06-14 17:36 | RADIOLOGY REPORT (SQ) ---
EXAM DESCRIPTION: U/S OB LIMITED COMPLETED DATE/TIME: 06/14/2017 5:22 pm REASON FOR STUDY: npc-36+5 wks, STONE, EFW, PLACENTA LOCATION WELLBE COMPARISON: 05/03/2017 TECHNIQUE: Limited transabdominal grayscale ultrasound for evaluation of specific requested obstetri idalia parameters. LIMITATIONS: None. FINDINGS: STONE: 12.3 cm. FHR: 152 beats per minute. PRESENTATION: Cephalic. OTHER: Fundal placenta. Estimated weight 3182 g IMPRESSION: LIMITED OBSTETRICAL ULTRASOUND WITH MEASURED PARAMETERS DELINEATED ABOVE. Trimester of : Third trimester - 28 weeks to delivery. TECHNICAL DOCUMENTATION: JOB ID: [id number] [employer]- All Rights Reserved
[2017-06-14 17:46] LABS: CHLAM PCR NOT DETECTED (NOT DETECT); GON PCR NOT DETECTED (NOT DETECT)
[2017-06-16 07:24] LABS: HEPATITS B SURFACE ANTIGEN Negative (Negative)
== END ==
LOC: LC 14:27
PROVIDERS: ATTEND Obstetrics & Gynecology
PROC: 4A1HXCZ Monitoring of Products of Conception, Cardiac Rate, External Approach (ICD-10-PCS; principal; 2017-06-14)
DX: O47.03 False labor before 37 completed weeks of gestation, third trimester (principal); O99.820 Streptococcus B carrier state complicating pregnancy; O09.33 Supervision of pregnancy with insufficient antenatal care, third trimester; Z91.19 Patient's noncompliance with other medical treatment and regimen; Z3A.36 36 weeks gestation of pregnancy
CPT/HCPCS: 59025; 86900; 86901; 36415; 86850; 84443; 85025; 86762; 86592; 81001; 87340; 86701; 80307; 83036; 87491; 87591; 76815; J3490

== ENCOUNTER 2017-06-17 03:13 | Outpatient (CLI) | payer MEDICAID ==
[2017-06-17 04:06] LABS: APPEARANCE,URINE CLEAR; BILIRUBIN,URINE NEGATIVE (NEGATIVE); COLOR,URINE YELLOW; GLUCOSE, URINE NEGATIVE (NEGATIVE); KETONES,URINE NEGATIVE (NEGATIVE); LEUKOCYTE ESTERASE,URINE NEGATIVE (NEGATIVE); NITRITE,URINE NEGATIVE (NEGATIVE); PROTEIN,URINE NEGATIVE (NEGATIVE); URINE SPECIFIC GRAVITY 1.008
[2017-06-17 04:28] LABS: URINE AMPHETAMINES SCREEN NEGATIVE; URINE BARBITURATES SCREEN NEGATIVE; URINE BENZODIAZEPINES SCREEN NEGATIVE; URINE COCAINE SCREEN NEGATIVE; URINE MARIJUANA (THC) SCREEN NEGATIVE; URINE METHADONE SCREEN NEGATIVE; URINE PHENCYCLIDINE SCREEN NEGATIVE
[2017-06-17] MEDS ORDERED: RINGERS SOLUTION,LACTATED 1,000 ML IV PRN (04:28)
--- NOTE | 2017-06-17 05:40 | Non Stress Test Report ---
Non Stress Test Datetime Report Generated by CPN: 06/17/2017 05:40 DEMOGRAPHIC Test Number: 4 Test Number: 2 EGA NST: 37.1 EGA NST: 34.4 EGA NST: 34.2 INDICATION Indication for Study: Ordered by Provider; Other Indication for Study: Other Indication for Study: Ordered by Provider Indication for Study (NST) Other: labor check Indication for Study (NST) Other: LABOR CHECK URINE RESULTS Urine Protein, NST: Negative Urine Ketones - NST: Negative Urine Glucose - NST: Negative Urine Blood - NST: Negative MONITORING Monitor Explained: Monitor Explained; Test Explained; Patient Verbalized Understanding Monitor Explained: Monitor Explained; Test Explained; Patient Verbalized Understanding Monitor Explained: Monitor Explained; Test Explained; Patient Verbalized Understanding Time on Monitor: 06/17/2017 05:10 Time on Monitor: 05/30/2017 15:56 Time on Monitor: 05/28/2017 16:41 Time off Monitor: 06/17/2017 05:30 Time off Monitor: 05/30/2017 18:27 Time off Monitor: 05/28/2017 17:11 NST Duration: 20 NST Duration: 151 NST Duration: 30 NST INTERVENTIONS NST Interventions: PO Hydration; IV Fluids NST Interventions: PO Hydration; Reposition Patient NST Interventions: PO Hydration Physician Notified NST: Lizandro BABY A: [id number] BABY A Movement : Present Movement : Present Movement : Present Contraction Frequency : 6-7 + irritability Contraction Frequency : OCC Contraction Frequency : 8-9 FHR Baseline : 125 FHR Baseline : 135 FHR Baseline : 145 Accelerations : 15X15 Accelerations : 15X15 Accelerations : 15X15 Decelerations : None Decelerations : None Decelerations : None Variability : Moderate 6-25bpm Variability : Moderate 6-25bpm Variability : Moderate 6-25bpm NST Review: Meets Criteria for Reactive NST NST Review: Meets Criteria for Reactive NST NST Review: Meets Criteria for Reactive NST NST Review and Verified By : ESTELLA Dumont NST Review and Verified By : Nilton Blood RN NST Review and Verified By : Foreign Guzman RN NST Results: Reactive NST Results: Reactive NST Results: Reactive NST REPORT Report Trigger: Send Report
== END 2017-06-17 05:58 | disposition home or self-care (01) ==
LOC: LC 03:13
PROVIDERS: ATTEND Obstetrics & Gynecology
PROC: 4A1HXCZ Monitoring of Products of Conception, Cardiac Rate, External Approach (ICD-10-PCS; principal; 2017-06-17)
DX: O47.1 False labor at or after 37 completed weeks of gestation (principal); Z3A.37 37 weeks gestation of pregnancy
CPT/HCPCS: 59025; 80307; 81005

== ENCOUNTER 2017-06-18 21:45 | Outpatient (CLI) | payer MEDICAID ==
[2017-06-18 22:23] LABS: APPEARANCE,URINE CLEAR; BILIRUBIN,URINE NEGATIVE (NEGATIVE); COLOR,URINE YELLOW; GLUCOSE, URINE NEGATIVE (NEGATIVE); KETONES,URINE NEGATIVE (NEGATIVE); LEUKOCYTE ESTERASE,URINE NEGATIVE (NEGATIVE); NITRITE,URINE NEGATIVE (NEGATIVE); PROTEIN,URINE NEGATIVE (NEGATIVE); URINE SPECIFIC GRAVITY 1.009; UROBILINOGEN,URINE NEGATIVE mg/dL (<2.0)
[2017-06-18] MEDS ORDERED: HYDROXYZINE PAMOATE 50 MG CAPSULE PO ONE (22:31)
[2017-06-18] MEDS ORDERED: HYDROXYZINE PAMOATE 50 MG CAPSULE ONE (22:33)
[2017-06-18 22:37] LABS: URINE AMPHETAMINES SCREEN NEGATIVE; URINE BARBITURATES SCREEN NEGATIVE; URINE BENZODIAZEPINES SCREEN NEGATIVE; URINE COCAINE SCREEN NEGATIVE; URINE MARIJUANA (THC) SCREEN NEGATIVE; URINE METHADONE SCREEN NEGATIVE; URINE PHENCYCLIDINE SCREEN NEGATIVE
== END 2017-06-18 22:55 | disposition home or self-care (01) ==
LOC: LC 21:45
PROVIDERS: ATTEND Obstetrics & Gynecology
PROC: 4A1HXCZ Monitoring of Products of Conception, Cardiac Rate, External Approach (ICD-10-PCS; principal; 2017-06-18)
DX: O47.1 False labor at or after 37 completed weeks of gestation (principal); Z3A.37 37 weeks gestation of pregnancy
CPT/HCPCS: 59025; 81005; 80307; J3490

== ENCOUNTER 2017-06-26 16:47 | Outpatient (CLI) | payer MEDICAID ==
--- NOTE | 2017-06-26 16:50 | Non Stress Test Report ---
Non Stress Test Datetime Report Generated by CPN: 06/26/2017 16:50 DEMOGRAPHIC EGA NST: 37.2 INDICATION Indication for Study: Ordered by Provider Indication for Study (NST) Other: LC- ctn's URINE RESULTS Urine Protein, NST: Negative Urine Ketones - NST: Negative Urine Glucose - NST: Negative Urine Blood - NST: Negative MONITORING Monitor Explained: Monitor Explained; Test Explained; Patient Verbalized Understanding Time on Monitor: 06/18/2017 21:21 Time off Monitor: 06/18/2017 22:37 NST Duration: 76 NST INTERVENTIONS NST Interventions: PO Hydration; Reposition Patient BABY A: [id number] BABY A Movement : Present Contraction Frequency : irreg FHR Baseline : 140 Accelerations : 15X15 Decelerations : None Variability : Moderate 6-25bpm NST Review: Meets Criteria for Reactive NST NST Review and Verified By : Foreign Harvey RN NST Results: Reactive NST REPORT Report Trigger: Send Report
[2017-06-26 17:56] LABS: APPEARANCE,URINE SLIGHTLY-CLOUDY; BILIRUBIN,URINE NEGATIVE (NEGATIVE); COLOR,URINE YELLOW; GLUCOSE, URINE NEGATIVE (NEGATIVE); KETONES,URINE NEGATIVE (NEGATIVE); LEUKOCYTE ESTERASE,URINE NEGATIVE (NEGATIVE); NITRITE,URINE NEGATIVE (NEGATIVE); PROTEIN,URINE NEGATIVE (NEGATIVE); URINE SPECIFIC GRAVITY 1.005; UROBILINOGEN,URINE NEGATIVE mg/dL (<2.0)
[2017-06-26 18:03] LABS: AMNISURE (ROM) NEGATIVE (NEGATIVE)
--- NOTE | 2017-06-26 18:13 | Non Stress Test Report ---
Non Stress Test Datetime Report Generated by CPN: 06/26/2017 18:12 DEMOGRAPHIC EGA NST: 38.3 INDICATION Indication for Study: Other Indication for Study (NST) Other: labor check VITAL SIGNS Temperature - NST: 97.7 Pulse - NST: 94 RESP - NST: 14 NBPSYS NST: 119 NBPDIA NST: 74 MONITORING Monitor Explained: Monitor Explained; Test Explained; Patient Verbalized Understanding Time on Monitor: 06/26/2017 17:30 Time off Monitor: 06/26/2017 17:50 NST Duration: 20 NST INTERVENTIONS NST Interventions: PO Hydration Physician Notified NST: Dr. Price BABY A Movement : Present Contraction Frequency : 0 Accelerations : 15X15 Decelerations : None Variability : Moderate 6-25bpm NST Review: Meets Criteria for Reactive NST NST Review and Verified By : Rebeca Morgan RN NST Results: Reactive NST REPORT Report Trigger: Send Report
[2017-06-26 18:16] LABS: URINE AMPHETAMINES SCREEN NEGATIVE; URINE BARBITURATES SCREEN NEGATIVE; URINE BENZODIAZEPINES SCREEN NEGATIVE; URINE COCAINE SCREEN NEGATIVE; URINE MARIJUANA (THC) SCREEN NEGATIVE; URINE METHADONE SCREEN NEGATIVE; URINE PHENCYCLIDINE SCREEN NEGATIVE
[2017-06-26] MEDS ORDERED: HYDROXYZINE PAMOATE 50 MG CAPSULE PO ONE (18:37)
[2017-06-26] MEDS ORDERED: HYDROXYZINE PAMOATE 50 MG CAPSULE ONE (18:38)
== END 2017-06-26 19:01 | disposition home or self-care (01) ==
LOC: LC 16:47
PROVIDERS: ATTEND Obstetrics & Gynecology Gynecology
PROC: 4A1HXCZ Monitoring of Products of Conception, Cardiac Rate, External Approach (ICD-10-PCS; principal; 2017-06-26)
DX: O26.893 Other specified pregnancy related conditions, third trimester (principal); R55 Syncope and collapse; Z3A.38 38 weeks gestation of pregnancy
CPT/HCPCS: 84112; 81005; 80307; 59025; J3490

== ENCOUNTER 2017-07-04 15:48 | Inpatient (IN) | payer MEDICAID ==
[2017-07-04 16:55] LABS: APPEARANCE,URINE CLEAR; BILIRUBIN,URINE NEGATIVE (NEGATIVE); COLOR,URINE YELLOW; GLUCOSE, URINE NEGATIVE (NEGATIVE); KETONES,URINE NEGATIVE (NEGATIVE); LEUKOCYTE ESTERASE,URINE NEGATIVE (NEGATIVE); NITRITE,URINE NEGATIVE (NEGATIVE); PROTEIN,URINE NEGATIVE (NEGATIVE); URINE SPECIFIC GRAVITY 1.009
[2017-07-04 17:18] LABS: URINE AMPHETAMINES SCREEN NEGATIVE; URINE BARBITURATES SCREEN NEGATIVE; URINE BENZODIAZEPINES SCREEN NEGATIVE; URINE COCAINE SCREEN NEGATIVE; URINE MARIJUANA (THC) SCREEN NEGATIVE; URINE METHADONE SCREEN NEGATIVE; URINE PHENCYCLIDINE SCREEN NEGATIVE
[2017-07-04] MEDS ORDERED: PENICILLIN G-K 5 MILLION UNIT VIAL ONE ×2 (18:47→23:20)
[2017-07-04] MEDS ORDERED: PROMETHAZINE HCL INJ 25 MG/1 ML VIAL ONE (18:54)
[2017-07-04] MEDS ORDERED: NALBUPHINE HCL INJ 10 MG/1 ML AMPULE ONE (18:54)
[2017-07-04] MEDS ORDERED: PENICILLIN G POTASSIUM 5,000,000 UNIT in DEXTROSE 5%-WATER 100 ML IV ONE (18:55)
[2017-07-04] MEDS ORDERED: RINGERS SOLUTION,LACTATED 1,000 ML IV ONE (18:55)
[2017-07-04] MEDS ORDERED: PROMETHAZINE HCL INJ 25 MG/1 ML VIAL IV ONE (18:55)
[2017-07-04] MEDS ORDERED: NALBUPHINE HCL INJ 10 MG/1 ML AMPULE IV ONE (18:55)
[2017-07-04] MEDS ORDERED: PENICILLIN G-K 5 MILLION UNIT VIAL IV ONE (20:00)
[2017-07-04 21:47] LABS: ABSOLUTE MONOCYTES (AUTO) 0.6 10^3/uL (0.1-1.4); ABSOLUTE NEUT (AUTO) 3.3 10^3/uL (1.7-8.2); BASOPHILS % (AUTO) 0.1 % (0-2); EOSINOPHILS % (AUTO) 0.3 % (0-6); HEMATOCRIT 24.5 % (36.0-47.0); LYMPHOCYTES % (AUTO) 20.8 % (13-45); MEAN CORPUSCULAR HEMOGLOBIN 20.2 pg (27.0-33.4); MEAN CORPUSCULAR HGB CONC 31.8 g/dL (32.0-36.0); MONOCYTES % (AUTO) 11.6 % (3-13); PLATELET COUNT 255 10^3/uL (150-450); RED BLOOD COUNT 3.85 10^6/uL (3.72-5.28); RED CELL DISTRIBUTION WIDTH 19.4 % (11.5-14.0); SEGMENTED NEUTROPHILS % (AUTO) 67.2 % (42-78); TOTAL CELLS COUNTED % (AUTO) 100 %; WHITE BLOOD COUNT 4.9 10^3/uL (4.0-10.5)
[2017-07-04 22:06] LABS: ANISOCYTOSIS 1+; HYPOCHROMASIA 2+; OVALOCYTES SLIGHT; PLATELET COMMENT ADEQUATE; POIKILOCYTOSIS SLIGHT; POLYCHROMASIA SLIGHT
[2017-07-04 22:07] LABS: MEAN CORPUSCULAR VOLUME 64 fl (80-97)
[2017-07-04 22:09] LABS: HEMOGLOBIN 7.8 g/dL (12.0-15.5)
[2017-07-04] MEDS ORDERED: PENICILLIN G POTASSIUM 2,500,000 UNIT in DEXTROSE 5%-WATER 50 ML IV SCH (22:56)
[2017-07-04] MEDS: PENICILLIN G-K 5 MILLION UNIT VIAL IV SCH (23:26)
[2017-07-04] MEDS: RINGERS SOLUTION,LACTATED 1,000 ML IV PRN (23:26)
[2017-07-05] MEDS ORDERED: PENICILLIN G-K 5 MILLION UNIT VIAL ONE ×3 (03:17→11:22)
[2017-07-05] MEDS: PENICILLIN G-K 5 MILLION UNIT VIAL IV SCH ×3 (03:23→11:27)
[2017-07-05] MEDS ORDERED: OXYTOCIN/NORMAL SALINE 20 UNIT/1,000 ML RTUINJ ONE (07:01)
[2017-07-05] MEDS: RINGERS SOLUTION,LACTATED 1,000 ML IV PRN (07:16)
[2017-07-05] MEDS ORDERED: OXYTOCIN/NORMAL SALINE 20 UNIT/1,000 ML RTUINJ IV PRN ×2 (07:24→13:21)
--- NOTE | 2017-07-05 08:37 | L&D Progress Notes ---
PROGRESS NOTES Datetime Report Generated by CPN: 07/05/2017 08:36 PROGRESS NOTE Impression: Arrest of Dilatation/Descent Procedures: Artificial ROM Plan: Continue Present Management; Augmentation Informed Consent Obtained: Vaginal Delivery Vital Signs : Reviewed Comment: latent labor now on pitocin 4mu/min, having rare contractions. AROM for clear fluid. pt plans epidural when in pain. anticipate . VAGINAL EXAM Dilatation: 5 Dilatation: 4 Effacement: 50 Effacement: 50 Station: -2 Station: -2 Contractions: rare MEMBRANES Pooling: Negative Membranes: Intact Amniotic Fluid Color: Clear FETUS A FHR - Baseline: 140 Monitoring: External US Variability: Moderate 6-25bpm Accelerations: 15X15 Decelerations: None FHR Category: Category I : 40+1 : 40.0 Estimated Weight (gm): 3400 Presentation: Vertex SIGNATURE SIGNATURE: [id number];[id number] SIGNATURE: [id number];10,[id number] SIGNATURE: [id number];14,[id number] SIGNATURE: 14,[id number];10,[id number] Assignment: Nu Alan MD Signature: with User ID: [email or web address] : with User ID: [email or web address]
[2017-07-05] MEDS ORDERED: NORMAL SALINE 250 ML IV PRN (08:48)
[2017-07-05] MEDS ORDERED: FENTANYL/BUPIVACAINE/NS/PF 200 MCG/100 ML RTUINJ EPI ONE (09:22)
[2017-07-05] MEDS ORDERED: MISOPROSTOL 0.2 MG TABLET ONE (09:22)
[2017-07-05] MEDS ORDERED: LIDOCAINE 1% INJ-PF (10 MG/ML) 30 ML SDV ONE (09:22)
[2017-07-05] MEDS ORDERED: EPHEDRINE SULFATE INJ 50 MG/1 ML AMPULE ONE (09:22)
[2017-07-05] MEDS ORDERED: BUPIVACAINE HCL 0.25 % INJ/PF (2.5 MG/1 ML) 30 ML VIAL ONE (09:23)
[2017-07-05 12:56] LABS: PATH REVIEW PATHOLOGIST REVIEWED
[2017-07-05] MEDS ORDERED: BENZOCAINE/MENTHOL AEROSOL SPRAY 56 ML TOP PRN (13:21)
[2017-07-05] MEDS ORDERED: MAGNESIUM HYDROXIDE SUSP 30 ML UDCUP PO PRN (13:21)
[2017-07-05] MEDS ORDERED: PROMETHAZINE HCL INJ 25 MG/1 ML VIAL IV PRN (13:21)
[2017-07-05] MEDS ORDERED: ACETAMINOPHEN WITH CODEINE #3 TABLET PO PRN (13:21)
[2017-07-05] MEDS ORDERED: ACETAMINOPHEN 325 MG TABLET PO PRN (13:21)
[2017-07-05] MEDS ORDERED: MISOPROSTOL 0.2 MG TABLET PR PRN (13:21)
[2017-07-05] MEDS ORDERED: PROMETHAZINE HCL 25 MG TABLET PO PRN (13:21)
[2017-07-05] MEDS ORDERED: PROMETHAZINE HCL 25 MG SUPP.RECT PR PRN (13:21)
[2017-07-05] MEDS ORDERED: NA PHOS,M-B/NA PHOS,DI-BA (ADULT) 133 ML ENEMA PR PRN (13:21)
[2017-07-05] MEDS ORDERED: DIPH/PERTUSS(ACELL)/TETANUS VAC/PF 0.5 ML SYR (>=10YO) IM PRN (13:21)
[2017-07-05] MEDS ORDERED: MEASLES,MUMPS&RUBELLA VACC/PF 0.5 ML VIAL SUBCUT PRN (13:21)
[2017-07-05] MEDS ORDERED: GLYCERIN/WITCH HAZEL LEAF 1 EACH MED..PAD TP PRN (13:21)
[2017-07-05] MEDS ORDERED: DIPHENHYDRAMINE HCL 25 MG CAPSULE PO PRN (13:21)
[2017-07-05] MEDS ORDERED: PSEUDOEPHEDRINE HCL 30 MG TABLET PO PRN (13:21)
[2017-07-05] MEDS ORDERED: DIBUCAINE 1% OINTMENT 28 GM TP PRN (13:21)
--- NOTE | 2017-07-05 15:25 | Delivery Summary ---
Del Sum A-C Datetime Report Generated by CPN: 07/05/2017 15:25 DELIVERY PERSONNEL DELIVERY PERSONNEL: [id number] Delivery Doctor:: Brii Cardoso CNM Labor and Delivery Nurse:: Avelina Angeles RN Labor and Delivery Nurse:: ESTELLA Stevens [employer]/DATA WAREHOUSING SPECIALIST: Patria Tillman, ST Additional Personnel: : Sarah Ragland RN MATERNAL INFORMATION Delivery Anesthesia: Epidural Medications After Delivery: Pitocin Bolus-Please Comment; Other-Please Comment Meds After Delivery Comment: Pitocin 20 units in 1000 ml nss open for bolus/ cytotec 1000 mcg placed rectal per provider Maternal Complications: Other Other Maternal Complications: obesity Provider Comments: TYREL VIABLE MALE WITH SPONTANEOUS REPIRATIONS. LOOSE NUCHAL CORD REDUCED AFTER DELIVERY OF HEAD. SHOULDERS DELIVERED EASILY. CORD DOUBLE CLAMPED AND CUT. NURSERY CALLED DUE TO BABY BREATHING WELL BUT NO CRY-O2 SAT 100% AND NURSES REPORTED LUNG SOUNDS NORMAL. ACTIVE MGT OF 3RD STAGE INITIATED AFTER . PLACENTA EXPRESSED AND TRAILING MEMBRANES. SCANT AMOUNT MEMBRANES MANUALLY REMOVED. BLEEDING MINIMAL CYTOTEC 1000MCG MA GIVEN DUE TO LOW H/H ON ADMISSION. EBL 200, AWAITING QBL. NO LACERATIONS. MOTHER AND STABLE IN L_D #7 LABOR SUMMARY EDC: 07/03/2017 00:00 No. Babies in Womb: 1 Attempted: No Labor Anesthesia: Epidural LABOR INFORMATION Reason for Induction: Not Applicable Onset of Labor: 07/05/2017 08:21 Complete Dilatation: 07/05/2017 12:09 Oxytocin: Augmentation Group B Beta Strep: Positive Antibiotics # of Doses: 5 Antibiotics Time of Last Dose: 1128 Name of Antibiotic Given: penicillin Steroids Given: None Reason Steroids Not Administered: Not Applicable MEMBRANES Membranes Rupture Method: Artificial Rupture of Membranes: 07/05/2017 08:21 Length of Rupture (hr): 4.47 Amniotic Fluid Color: Clear Amniotic Fluid Amount: Small Amniotic Fluid Odor: Normal STAGES OF LABOR Stage 1 hr: 3 Stage 1 min: 48 Stage 2 hr: 0 Stage 2 min: 40 Stage 3 hr: 0 Stage 3 min: 10 Total Time in Labor hr: 4 Total Time in Labor min: 38 VAGINAL DELIVERY Episiotomy: None Laceration #1: None Laceration Extension #1: N/A Laceration Repair: Not Applicable Sponge Count Correct: N/A Sharps Count Correct: N/A CSECTION DELIVERY Primary Indication: N/A Secondary Indication: N/A CSection Incidence: N/A Labor: N/A Elective: N/A CSection Incision: N/A BABY A INFORMATION Delivery Date/Time: 07/05/2017 12:49 Method of Delivery: Vaginal Born in Route : No : N/A Forceps: N/A Vacuum Extraction: N/A Shoulder Dystocia : No PRESENTATION/POSITION BABY A Presentation: Cephalic Cephalic Presentation: Vertex Vertex Position: Left Occipital Anterior Breech Presentation: N/A PLACENTA INFORMATION BABY A Placenta Delivery Time : 07/05/2017 12:59 Placenta Method of Delivery: Expressed Placenta Status: Delivered SCORES BABY A Heart Rate 1 min: >100 bpm Resp Effort 1 min: Slow, Irregular Reflex Irritability 1 min: Cough or Sneeze or Pulls Away Muscle Tone 1 min: Active Motion Color 1 min: Body [place], Extremities Blue Resuscitation Effort 1 min: Tactile Stimulation SCORE 1 MIN: 8 Heart Rate 5 min: >100 bpm Resp Effort 5 min: [place] Reflex Irritability 5 min: Cough or Sneeze or Pulls Away Muscle Tone 5 min: Active Motion Color 5 min: Body [place], Extremities Blue Resuscitation Effort 5 min: Tactile Stimulation SCORE 5 MIN: 9 Resuscitation Effort 10 min: N/A INFANT INFORMATION BABY A Gestational Age at Delivery: 40.2 Gestational Status: Full Term- 39- 40.6 Weeks Outcome : Liveborn Infant Condition : Stable Sex: Male IDENTIFICATION BABY A Infant Verification Date/Time: 07/05/2017 13:09 ID Band Number: [id number] Mother's Name Verified: Yes RN Verifying : , RN and C.Ángel, RN CORD INFORMATION BABY A No. Cord Vessels: 3 Nuchal Cord : Around Neck x1, Loose Cord Blood Taken: Yes-For Storage (Mom's Blood type +) Infant Suction: Mouth; Nose ASSESSMENT BABY A Complications: None Physical Findings at Delivery: Within Normal Limits Respirations: Appears Normal Skin to Skin: Yes Infant Care By: Tess Terry RNC Transferred To: Remains with Mother BABY B INFORMATION : N/A SIGNATURES Assignment: Nu Alan MD Signature: with User ID: [email or web address] : with User ID: [email or web address] : I was personally available for consultation and serving as supervising physician for the MLP.
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
[2017-07-05] MEDS: IBUPROFEN 800 MG TABLET PO SCH ×2 (15:40→23:38)
[2017-07-05] MEDS: ACETAMINOPHEN WITH CODEINE #3 TABLET PO PRN ×2 (16:38→21:28)
[2017-07-05] MEDS: DOCUSATE SODIUM 100 MG CAPSULE PO SCH (17:14)
[2017-07-05] MEDS: FERROUS SULFATE 325 MG TABLET PO SCH (17:14)
[2017-07-05] MEDS: FAMOTIDINE 20 MG TABLET PO SCH (21:27)
[2017-07-05] MEDS ORDERED: ZOLPIDEM TARTRATE 5 MG TABLET PO PRN (22:00)
[2017-07-06] MEDS: IBUPROFEN 800 MG TABLET PO SCH ×3 (06:06→21:00)
[2017-07-06] MEDS: ACETAMINOPHEN WITH CODEINE #3 TABLET PO PRN ×2 (08:09→19:11)
[2017-07-06 08:13] LABS: HEMATOCRIT 28.2 % (36.0-47.0); HEMOGLOBIN 8.8 g/dL (12.0-15.5); MEAN CORPUSCULAR HEMOGLOBIN 19.9 pg (27.0-33.4); MEAN CORPUSCULAR HGB CONC 31.1 g/dL (32.0-36.0); MEAN CORPUSCULAR VOLUME 64 fl (80-97); PLATELET COUNT 266 10^3/uL (150-450); RED BLOOD COUNT 4.43 10^6/uL (3.72-5.28); RED CELL DISTRIBUTION WIDTH 19.4 % (11.5-14.0); WHITE BLOOD COUNT 7.7 10^3/uL (4.0-10.5)
--- NOTE | 2017-07-06 09:31 | PDOC PROGRESS REPORT ---
Subjective-OB Progress Note for:: 07/06/17 Subjective: Sitting up in bed, family at BS, bottle feeding, voiding, eating well, no heavy bleeding Physical Exam (OB) Vital Signs: Temp Pulse Resp BP Pulse Ox 98.2 F 85 18 124/89 H 100 07/06/17 07:55 07/06/17 07:55 07/06/17 07:55 07/06/17 07:55 07/06/17 07:55 Intake & Output 07/05/17 07/06/17 07/07/17 06:59 06:59 06:59 Weight 98.8 kg - PIH/Pre-Eclampsia DTR's: 2 + Clonus: Negative Headache: Absent Epigastric Pain: No Visual Changes: No - Lochia Lochia Amount: Scant < 10 ml Lochia Color: Rubra/Red - Abdomen Description: Soft, Round Hernia Present: No Fundal Description: Firm, Midline Describe if Not Midline: right side Fundal Height: u/u - u/2 Objective-Diagnostic Laboratory: 07/06/17 07:52 07/04/17 07/06/17 21:32 07:52 WBC 7.7 RBC 4.43 Hgb 8.8 L Hct 28.2 L MCV 64 L MCH 19.9 L MCHC 31.1 L RDW 19.4 H Plt Count 266 Blood Type AB POSITIVE Antibody Screen NEGATIVE Assessment and Plan(PN) - Assessment and Plan (1) Anemia affecting third Is this a current diagnosis for this admission?: Yes (2) Vaginal delivery Is this a current diagnosis for this admission?: Yes (3) Bipolar 1 disorder Is this a current diagnosis for this admission?: Yes - Time Spent with Patient Time with patient: Less than 15 minutes Medications reviewed and adjusted accordingly: Yes - Disposition Anticipated Discharge: Home Within: within 24 hours
[2017-07-06] MEDS: DOCUSATE SODIUM 100 MG CAPSULE PO SCH ×2 (11:05→17:16)
[2017-07-06] MEDS: FAMOTIDINE 20 MG TABLET PO SCH ×2 (11:05→21:01)
[2017-07-06] MEDS: FERROUS SULFATE 325 MG TABLET PO SCH ×2 (11:05→17:16)
[2017-07-06] MEDS: PRENATAL VITAMIN W DHA CAPSULE PO SCH (11:05)
[2017-07-06] MEDS: SENNOSIDES/DOCUSATE 8.6-50 MG 1 EACH TABLET PO SCH (11:06)
[2017-07-07] MEDS: IBUPROFEN 800 MG TABLET PO SCH (05:17)
[2017-07-07 08:36] VITALS: BP 130/82
[2017-07-07] MEDS: FAMOTIDINE 20 MG TABLET PO SCH (09:52)
[2017-07-07] MEDS: DOCUSATE SODIUM 100 MG CAPSULE PO SCH (09:52)
[2017-07-07] MEDS: SENNOSIDES/DOCUSATE 8.6-50 MG 1 EACH TABLET PO SCH (09:52)
[2017-07-07] MEDS: PRENATAL VITAMIN W DHA CAPSULE PO SCH (09:52)
[2017-07-07] MEDS: ACETAMINOPHEN WITH CODEINE #3 TABLET PO PRN (09:52)
[2017-07-07] MEDS: FERROUS SULFATE 325 MG TABLET PO SCH (09:52)
--- NOTE | 2017-07-07 10:32 | PDOC PROGRESS REPORT ---
Subjective-OB Progress Note for:: 07/07/17 Subjective: Ready to go home. Physical Exam (OB) Vital Signs: Temp Pulse Resp BP Pulse Ox 98.4 F 85 16 130/82 H 99 07/07/17 08:00 07/07/17 08:00 07/07/17 08:00 07/07/17 08:00 07/07/17 08:00 Intake & Output 07/06/17 07/07/17 07/08/17 06:59 06:59 06:59 Intake Total 480 Balance 480 - PIH/Pre-Eclampsia DTR's: 2 + Clonus: Negative Headache: Absent Epigastric Pain: No Visual Changes: No - Lochia Lochia Amount: Scant < 10 ml Lochia Color: Rubra/Red - Abdomen Description: Soft Hernia Present: No Bowel Sounds: Normoactive Flatus Presence: Present Stool: No Fundal Description: Firm, Midline Describe if Not Midline: right side Fundal Height: u/u - u/2 Objective-Diagnostic Laboratory: 07/06/17 07:52 Assessment and Plan(PN) - Time Spent with Patient Medications reviewed and adjusted accordingly: Yes - Disposition Anticipated Discharge: Home
--- NOTE | 2017-07-07 10:44 | PDOC DISCHARGE SUMMARY ---
Final Diagnosis Discharge Date: 07/07/17 - Final Diagnosis (1) Anemia affecting third Is this a current diagnosis for this admission?: Yes (2) Asthma Is this a current diagnosis for this admission?: Yes (3) Insufficient antepartum care Is this a current diagnosis for this admission?: Yes (4) Positive GBS test Is this a current diagnosis for this admission?: Yes (5) Vaginal delivery Is this a current diagnosis for this admission?: Yes (6) Bipolar 1 disorder Is this a current diagnosis for this admission?: Yes Discharge Data - Discharge Medication Prescriptions: Docusate Sodium [Colace 100 mg Capsule] 100 mg PO BID #30 capsule Ferrous Sulfate [Feosol 325 mg Tablet] 325 mg PO BID #60 tablet Ibuprofen [Motrin 800 mg Tablet] 800 mg PO Q8 #30 tablet Home Medications: Pnv 102/Iron/Folate 1/Dss/Dha [Vitafol Fe+ Docusate Combo Pck] 1 cap PO DAILY Albuterol Sulfate [Proair HFA] 2 puff IH PRN PRN 06/18/17 Docusate Sodium [Colace 100 mg Capsule] 100 mg PO BID #30 capsule 07/07/17 Ferrous Sulfate [Feosol 325 mg Tablet] 325 mg PO BID #60 tablet 07/07/17 Ibuprofen [Motrin 800 mg Tablet] 800 mg PO Q8 #30 tablet 07/07/17 Gestational Age: 40 wks Reason(s) for Admission: Onset of Labor Procedures: Ultrasound Intrapartum Procedure(s): Spontaneous Vaginal Delivery - Data Baby 1 Male at 1 minute: 8 at 5 minutes: 9 Weight: 3.402 kg Home with Mother: Yes Complications: No - Diagnosis Test Laboratory: Temp Pulse Resp BP Pulse Ox 98.4 F 85 16 130/82 H 99 07/07/17 08:00 07/07/17 08:00 07/07/17 08:00 07/07/17 08:00 07/07/17 08:00 07/04/17 07/04/17 07/06/17 15:53 21:32 07:52 RBC 3.85 4.43 Hgb 7.8 L 8.8 L Hct 24.5 L 28.2 L Urine Opiates Screen NEGATIVE - Discharge information/Instructions Discharge Activity: Activity As Tolerated, Balance Activity w/Rest, No Lifting Over 10 Pounds, Non-Ambulatory Child, Pelvic Rest, Slowly Increase Activity, No tub bath Discharge Diet: Regular Disposition: HOME, SELF-CARE Follow up with: [facility] in: 4, Weeks
[2017-07-07] MEDS ORDERED: MEDROXYPROGESTERONE ACET INJ 150 MG/1 ML VIAL IM ONE (11:30)
== END 2017-07-07 11:58 | disposition home or self-care (01) | DRG 775 ==
LOC: LC 15:48 → LR 20:39 → 2S 07-05 15:20
PROVIDERS: ADMIT Obstetrics & Gynecology; ATTEND Obstetrics & Gynecology
PROC: 10E0XZZ Delivery of Products of Conception, External Approach (ICD-10-PCS; principal; 2017-07-05)
DX: O99.824 Streptococcus B carrier state complicating childbirth (principal); Z68.41 Body mass index [BMI] 40.0-44.9, adult; O69.81X0 Labor and delivery complicated by cord around neck, without compression, not applicable or unspecified; O99.214 Obesity complicating childbirth; O99.344 Other mental disorders complicating childbirth; O99.02 Anemia complicating childbirth; O99.52 Diseases of the respiratory system complicating childbirth; E66.9 Obesity, unspecified; D64.9 Anemia, unspecified; J45.998 Other asthma; F31.9 Bipolar disorder, unspecified; F43.10 Post-traumatic stress disorder, unspecified; Z3A.40 40 weeks gestation of pregnancy; Z37.0 Single live birth
CPT/HCPCS: 36415; 80307; 81005; 85025; 85027; 86592; 86850; 86900; 86901; 86920; J1050; J2300; J2540; J2550; J2590; J3490

== ENCOUNTER 2017-08-21 21:42 | Emergency (ER) | payer MEDICAID ==
[2017-08-21 22:43] LABS: APPEARANCE,URINE CLOUDY; BILIRUBIN,URINE NEGATIVE (NEGATIVE); COLOR,URINE YELLOW; GLUCOSE, URINE NEGATIVE (NEGATIVE); KETONES,URINE NEGATIVE (NEGATIVE); LEUKOCYTE ESTERASE,URINE TRACE (NEGATIVE); NITRITE,URINE NEGATIVE (NEGATIVE); PROTEIN,URINE 100 mg/dL (NEGATIVE); URINE SPECIFIC GRAVITY 1.029
[2017-08-21] MEDS ORDERED: NORMAL SALINE 1000 ML 1,000 ML IV ONE (23:36)
[2017-08-21] MEDS ORDERED: HALOPERIDOL LACTATE INJ 5 MG/1 ML VIAL IV ONE (23:36)
--- NOTE | 2017-08-22 00:08 | ER Document Report ---
ED General - General Chief Complaint: Headache Stated Complaint: VOMITING Time Seen by Provider: 08/21/17 23:35 Notes: Patient is a 22-year-old female with past medical history of migraines headaches who presents with 1 of her typical migraine headaches. She states that this headache has been present for the past 3 days. She describes it as a constant, throbbing, bitemporal pain. She states that it has been progressively worsening since onset. She has a history of similar headaches many times in the past. She tried Tylenol without improvement. She notes that lights and sounds worsen the headache. She has not seen a primary care doctor regarding today's concerns. She denies any focal weakness, numbness or altered mental status. No fever or constitutional symptoms. TRAVEL OUTSIDE OF THE [place] IN LAST 30 DAYS: No - Related Data Allergies/Adverse Reactions: iodine Allergy (Verified 08/21/17 21:44) Shellfish * [Shellfish] Allergy (Verified 08/21/17 21:44) swelling strawberry Allergy (Verified 08/21/17 21:44) swelling Past Medical History - General Information source: Patient - Social History Smoking Status: Never Smoker Frequency of alcohol use: None Drug Abuse: None Lives with: Family Family History: Reviewed & Not Pertinent, Other - gall bladder Patient has suicidal ideation: No Patient has homicidal ideation: No Pulmonary Medical History: Reports: Hx Asthma Neurological Medical History: Reports: Hx Migraine Renal/ Medical History: Denies: Hx Peritoneal Dialysis Psychiatric Medical History: Reports: Hx Attention Deficit Hyperactivity Disorder, Hx Bipolar Disorder, Hx Depression, Hx Schizophrenia Past Surgical History: Reports: Hx Oral Surgery - Immunizations Immunizations up to date: Yes Hx Diphtheria, Pertussis, Tetanus Vaccination: Yes Review of Systems - Review of Systems Notes: Constitutional: Negative for fever. HENT: Negative for sore throat. Eyes: Negative for visual changes. Cardiovascular: Negative for chest pain. Respiratory: Negative for shortness of breath. Gastrointestinal: Negative for abdominal pain, vomiting or diarrhea. Genitourinary: Negative for dysuria. Musculoskeletal: Negative for back pain. Skin: Negative for rash. Neurological: Positive for headache 10 point ROS negative except as marked above and in HPI. Physical Exam - Vital signs Interpretation: Normal Notes: PHYSICAL EXAMINATION: GENERAL: Well-appearing, well-nourished and in no acute distress. HEAD: Atraumatic, normocephalic. EYES: Pupils equal round and reactive to light, extraocular movements intact, sclera anicteric, conjunctiva are normal. ENT: nares patent, oropharynx clear without exudates. Moist mucous membranes. NECK: Normal range of motion, supple without lymphadenopathy LUNGS: Breath sounds clear to auscultation bilaterally and equal. No wheezes rales or rhonchi. HEART: Regular rate and rhythm without murmurs ABDOMEN: Soft, nontender, normoactive bowel sounds. No guarding, no rebound. No masses appreciated. EXTREMITIES: Normal range of motion, no pitting or edema. No cyanosis. NEUROLOGICAL: Face symmetric. Tongue protrudes midline. Extraocular motions intact. Pupils are 2 mm and equally reactive. Normal speech, normal gait. 5 out of 5 strength in both the distal and proximal upper and lower extremities bilaterally. Sensation is grossly intact throughout. Finger to nose testing normal. Pronator drift normal. PSYCH: Normal mood, normal affect. SKIN: Warm, Dry, normal turgor, no rashes or lesions noted. Course - Re-evaluation Re-evalutation: 08/22/17 00:07 Presentation of a headache that appears to be most consistent with tension versus migrainous type headache. Headache was not maximal in onset, patient has no focal neurologic deficits, no nuchal rigidity, vital signs within normal limits, no papilledema, and patient is overall well in appearance. Based on clinical history and examination I do not suspect an acute subarachnoid hemorrhage, dural venous sinus thrombosis, acute meningitis, or intercranial mass. Given my low clinical suspicion for any acute life-threatening etiology, I do not feel advanced neuro imaging or laboratory testing is indicated at this time. Patient had complete resolution of her headache after receiving a migraine cocktail. At this time will discharge with return precautions and follow-up recommendations. Verbal discharge instructions given a the bedside and opportunity for questions given. Medication warnings reviewed. Patient is in agreement with this plan and has verbalized understanding of return precautions and the need for primary care follow-up in the next 24-72 hours. - Laboratory Laboratory results interpreted by me: 08/21/17 22:18 Urine Protein 100 H Urine Blood LARGE H Urine Urobilinogen 4.0 H Ur Leukocyte Esterase TRACE H Discharge - Discharge Clinical Impression: Migraine headache Qualifiers: Migraine type: unspecified Status migrainosus presence: with status migrainosus Intractability: not intractable Qualified Code(s): G43.901 - Migraine, unspecified, not intractable, with status migrainosus Condition: Good Disposition: HOME, SELF-CARE Additional Instructions: You were seen today for a migraine headache. Please follow-up with your primary care doctor regarding today's ED visit. Return to emergency department immediately if you develop a headache that gets to its maximum severity within 20 minutes of onset, you pass out, you develop weakness, numbness, changes in your vision, become unable to keep any fluids down for more than 12 hours, or develop a fever greater than 100.4 degrees Fahrenheit. If you develop a similar migraine headache in the future I recommend that you immediately take 600 mg of ibuprofen and 50 mg of Benadryl and go to sleep as quickly as possible. This can often prevent your migraine headache from becoming severe.
== END 2017-08-22 00:46 | disposition home or self-care (01) ==
LOC: ER 21:42
DX: G43.901 Migraine, unspecified, not intractable, with status migrainosus (principal); J45.909 Unspecified asthma, uncomplicated; Z91.013 Allergy to seafood; Z91.018 Allergy to other foods
CPT/HCPCS: 99283; 96361; 96374; 36415; 81025; 81001; J1630; J7030

== ENCOUNTER 2017-11-17 20:32 | Emergency (ER) | payer MEDICAID ==
[2017-11-17 20:38] VITALS: BP 102/82
[2017-11-17] MEDS ORDERED: HYDROCODONE/ACETAMINOPHEN 5-325 MG TABLET PO ONE (22:18)
--- NOTE | 2017-11-17 22:18 | ER Document Report ---
ED Extremity Problem, Upper - General Chief Complaint: Arm Injury Stated Complaint: PAIN IN HAND Time Seen by Provider: 11/17/17 22:17 Mode of Arrival: Ambulatory Information source: Patient Notes: 22-year-old female presented to ED for complaint of right wrist and hand pain. She states she fell just before coming in and caught herself on her left hand. She states the pain is a 5 out of 5 achy and throbbing. TRAVEL OUTSIDE OF THE [place] IN LAST 30 DAYS: No - HPI Patient complains to provider of: Hand, Wrist Onset: Just prior to arrival Recent injury: Yes Where: Outdoors Quality of pain: Achy, Burning, Throbbing Severity of pain: Severe Pain Level: 5 Context: Fall Exacerbated by: Movement, Exertion Relieved by: Rest, Positioning Similar symptoms previously: No Recently seen / treated by doctor: No - Related Data Allergies/Adverse Reactions: iodine Allergy (Verified 08/21/17 21:44) Shellfish * [Shellfish] Allergy (Verified 08/21/17 21:44) swelling strawberry Allergy (Verified 08/21/17 21:44) swelling Past Medical History - General Information source: Patient - Social History Smoking Status: Former Smoker Cigarette use (# per day): No Chew tobacco use (# tins/day): No Smoking Education Provided: No Frequency of alcohol use: Occasional Drug Abuse: None Lives with: Family Family History: Reviewed & Not Pertinent, Other - gall bladder Patient has suicidal ideation: No Patient has homicidal ideation: No - Past Medical History Cardiac Medical History: Reports: None Pulmonary Medical History: Reports: Hx Asthma EENT Medical History: Reports: None Neurological Medical History: Reports: Hx Migraine Endocrine Medical History: Reports: None Renal/ Medical History: Reports: None Malignancy Medical History: Reports: None GI Medical History: Reports: None Musculoskeletal Medical History: Reports None Skin Medical History: Reports None Psychiatric Medical History: Reports: Hx Attention Deficit Hyperactivity Disorder, Hx Bipolar Disorder, Hx Depression, Hx Schizophrenia Traumatic Medical History: Reports: None Infectious Medical History: Reports: None Past Surgical History: Reports: Hx Oral Surgery - Immunizations Immunizations up to date: Yes Hx Diphtheria, Pertussis, Tetanus Vaccination: Yes Review of Systems - Review of Systems Constitutional: No symptoms reported EENT: No symptoms reported Cardiovascular: No symptoms reported Respiratory: No symptoms reported Gastrointestinal: No symptoms reported Genitourinary: No symptoms reported Female Genitourinary: No symptoms reported Musculoskeletal: Joint pain, Other - Right wrist and hand pain. denies: Joint swelling Skin: No symptoms reported Hematologic/Lymphatic: No symptoms reported Neurological/Psychological: No symptoms reported -: Yes All other systems reviewed and negative Physical Exam - Vital signs Vitals: Temp Pulse Resp BP Pulse Ox 98.5 F 100 20 102/82 100 11/17/17 20:37 11/17/17 20:37 11/17/17 20:37 11/17/17 20:37 11/17/17 20:37 Interpretation: Normal - General General appearance: Appears well, Alert - HEENT Head: Normocephalic, Atraumatic Eyes: Normal Pupils: PERRL - Respiratory Respiratory status: No respiratory distress Chest status: Nontender Breath sounds: Normal Chest palpation: Normal - Cardiovascular Rhythm: Regular Heart sounds: Normal auscultation Murmur: No - Abdominal Inspection: Normal Distension: No distension Bowel sounds: Normal Tenderness: Nontender Organomegaly: No organomegaly - Back Back: Normal, Nontender - Extremities General upper extremity: Normal inspection, Normal color, Normal temperature General lower extremity: Normal inspection, Nontender, Normal color, Normal ROM , Normal temperature, Normal weight bearing. No: Merritt's sign Wrist: Tender, Limited ROM Hand: Tender - The pain, No evidence of human bite, No evidence of FB. No: Abrasion, Deformity, Dislocation, Ecchymosis, Instability, Laceration, Nail injury, Swelling, Tendon deficit - Neurological Neuro grossly intact: Yes Cognition: Normal Orientation: AAOx4 [place] Coma Scale Eye Opening: Spontaneous Manny Coma Scale Verbal: Oriented Manny Coma Scale Motor: Obeys Commands [place] Coma Scale Total: 15 Speech: Normal Motor strength normal: LUE, RUE, LLE, RLE Sensory: Normal - Psychological Associated symptoms: Normal affect, Normal mood - Skin Skin Temperature: Warm Skin Moisture: Dry Skin Color: Normal Course - Re-evaluation Re-evalutation: 11/18/17 03:17 X-rays discussed with patient. Written reports x-rays given to patient to follow-up with orthopedics. Patient was treated with [place] in the emergency room and instructed to use ibuprofen elevation and ice for her sprain at home. Patient was treated with a cock-up splint for her discomfort. Patient verbalized understanding of directions and agreement with treatment plan. - Vital Signs Vital signs: Temp Pulse Resp BP Pulse Ox 98.5 F 100 20 102/82 100 11/17/17 20:37 11/17/17 20:37 11/17/17 20:37 11/17/17 20:37 11/17/17 20:37 - Diagnostic Test Radiology reviewed: Image reviewed, Reports reviewed Procedures - Immobilization Right Wrist Time completed: 23:51 Immobilizer type: Cock-up Performed by: RN Post-Proc Neuro Vasc Exam: Normal Alignment checked and good: Yes Discharge - Discharge Clinical Impression: Right wrist sprain Qualifiers: Encounter type: initial encounter Qualified Code(s): S63.501A - Unspecified sprain of right wrist, initial encounter Condition: Stable Disposition: HOME, SELF-CARE Instructions: Family Physicians / Practices, Forearm Exercise Program (OM) Additional Instructions: SPRAIN: Your injury is a sprain. A sprain results from stretching or tearing of the ligaments, usually from a twisting injury. The ligaments will require time and protection in order to heal properly. Many sprains are quite disabling and should be taken seriously. The usual initial treatment of sprains is cold packs, elevation, and rest of the injured area. Your physician has assessed the seriousness of your ligament injury, and has outlined a treatment plan. Understand that this treatment may change, depending on how you progress. If a re-examination was recommended, it is important that you follow up as instructed. Call the doctor any time if there is severe pain, numbness, or loss of function in the injured area. SPLINT PRECAUTIONS: A splint has been placed. This will protect the area while healing begins. Your problem does NOT normally require a cast. It MUST, however, be held still! Keep the splint on ALL THE TIME until instructed to remove it by the doctor. As you begin to use the area, be careful. You shouldn't do anything which causes discomfort -- you may disturb the injury even with the splint in place. After the initial period of rest and elevation, if splint does not prevent pain when you move, come back. You may require placement of a different splint , or a cast. If there is unexpected severe pain, or numbness, discoloration, or swelling beyond the splint, you should return at once. If you feel that the splint has broken or become loose, come back. ICE & ELEVATION: Apply ice packs frequently against the painful area. Many different schedules are recommended, such as "20 minutes on, 20 minutes off" or "one hour ice, two hours rest." If you need to work, you may need to go longer between ice treatments. You should plan to have the area ice packed AT LEAST one- fourth of the time. The ice should be applied over the wrap, tape, or splint, or over a layer of cloth -- not directly against the skin. Some ice bags have a built-in cloth and can be put directly on the skin. Your injured part should be elevated as much as possible over the next 48 hours. Try to keep the injury above the level of the heart. Avoid use of the injured area. Elevation and rest will decrease the swelling. USE OF [id number] IBUPROFEN: Ibuprofen (Advil, Nuprin, Medipren, Motrin IB) is a medication for fever and pain control. In addition, it has anti- inflammatory effects which may be beneficial, especially in the treatment of injuries. It's best to take ibuprofen with food. Persons with ulcer disease or allergy to aspirin should notify their physician of this before taking ibuprofen. Ibuprofen can be given every four to six hours, for a total of four doses daily. Age Pain or fever dose Antiinflammatory dose 6-8 yr 200 mg (1 tab) 200 mg (1 tab) 9-11 yr 200 mg (1 tab) 200-400 mg (1-2 tab) 11-14 yr 200-400 mg (1-2 tab) 400 mg (2 tab) 15-adult 400 mg (2 tab) 600 mg (3 tab) ORAL NARCOTIC MEDICATION: You have been given a norco for pain control. This medication is a narcotic. It's best taken with food, as nausea can result if taken on an empty stomach. Don't operate machinery or drive within six hours of taking this medication. Do not combine this medicine with alcohol, or with any medication which can cause sedation (such as cold tablets or sleeping pills) unless you get permission from the physician. Narcotics tend to cause constipation. If possible, drink plenty of fluids and eat a diet high in fiber and fruits. Please be aware that prescription narcotics also have the potential for abuse. People become addicted to these medications because of the general sense of wellbeing that they induce. This feeling along with a significant reduction in tension, anxiety, and aggression provides a stimulating seductive quality to these drugs. Once your pain is under control, we encourage you to discard your unused narcotics. FOLLOW-UP CARE: If you have been referred to a physician for follow-up care, call the physician s office for an appointment as you were instructed or within the next two days. If you experience worsening or a significant change in your symptoms, notify the physician immediately or return to the Emergency Department at any time for re-evaluation. Prescriptions: Ibuprofen 600 mg PO Q6HP PRN #20 tablet PRN Reason: Referrals: STEFANY JAVIER MD [ACTIVE STAFF] - Follow up as needed
--- NOTE | 2017-11-17 23:18 | RADIOLOGY REPORT (SQ) ---
EXAM DESCRIPTION: XR HAND 3 OR MORE VIEWS, XR WRIST 3 OR MORE VIEWS BILATERAL COMPLETED DATE/TME: 11/17/2017 22:17 CLINICAL HISTORY: 22 years, Female, fall caught self with hand COMPARISON: None. NUMBER OF VIEWS: Six TECHNIQUE: Three views of the RIGHT wrist and three views of the RIGHT hand were obtained in AP, oblique and lateral projection. LIMITATIONS: Evaluation of the distal digits of the RIGHT hand limited by patient positioning. FINDINGS: RIGHT wrist: No fracture or dislocation. The joint spaces are preserved. Soft tissues are within normal limits. RIGHT hand: No fracture or dislocation. The joint spaces are preserved. Soft tissues are within normal limits. IMPRESSION: No acute radiographic abnormalities. 2010 [employer]- All Rights Reserved
--- NOTE | 2017-11-17 23:18 | RADIOLOGY REPORT (SQ) ---
EXAM DESCRIPTION: XR HAND 3 OR MORE VIEWS, XR WRIST 3 OR MORE VIEWS BILATERAL COMPLETED DATE/TME: 11/17/2017 22:17 CLINICAL HISTORY: 22 years, Female, fall caught self with hand COMPARISON: None. NUMBER OF VIEWS: Six TECHNIQUE: Three views of the RIGHT wrist and three views of the RIGHT hand were obtained in AP, oblique and lateral projection. LIMITATIONS: Evaluation of the distal digits of the RIGHT hand limited by patient positioning. FINDINGS: RIGHT wrist: No fracture or dislocation. The joint spaces are preserved. Soft tissues are within normal limits. RIGHT hand: No fracture or dislocation. The joint spaces are preserved. Soft tissues are within normal limits. IMPRESSION: No acute radiographic abnormalities. 2010 [employer]- All Rights Reserved
== END 2017-11-18 00:04 | disposition home or self-care (01) ==
LOC: ER 20:32
DX: S63.501A Unspecified sprain of right wrist, initial encounter (principal); M25.531 Pain in right wrist; M79.641 Pain in right hand; W10.9XXA Fall (on) (from) unspecified stairs and steps, initial encounter; J45.909 Unspecified asthma, uncomplicated; Z91.013 Allergy to seafood; Z91.018 Allergy to other foods; Z87.891 Personal history of nicotine dependence
CPT/HCPCS: 99283; 73130; 73110; L3908

== ENCOUNTER 2017-12-27 21:31 | Emergency (ER) | payer MEDICAID ==
[2017-12-27] MEDS ORDERED: IPRATROPIUM/ALBUTEROL 0.5-2.5 MG/3 ML AMPUL NEB ONE (22:55)
[2017-12-27] MEDS ORDERED: PREDNISONE 20 MG TABLET PO ONE (22:55)
--- NOTE | 2017-12-27 22:57 | ER Document Report ---
ED Medical Screen (RME) - General Chief Complaint: Cold Symptoms Stated Complaint: BREATHING TROUBLE Time Seen by Provider: 12/27/17 22:55 Mode of Arrival: Ambulatory Information source: Patient Notes: Patient is a 22-year-old female who presents with chief complaint of cough, congestion, wheezing and fever. Patient reports she has had symptoms for approximately 2 days now. Patient reports her 5-month-old at home has been diagnosed with pneumonia she is concerned about spreading further illness to him. Patient has medical history of asthma. Exam: Mild expiratory wheezing noted bilaterally. I have greeted and performed a rapid initial assessment of this patient. A comprehensive ED assessment and evaluation of the patient, analysis of test results and completion of the medical decision making process will be conducted by additional ED providers. Dictation of this chart was performed using voice recognition software; therefore, there may be some unintended grammatical errors. TRAVEL OUTSIDE OF THE [place] IN LAST 30 DAYS: No - Related Data Allergies/Adverse Reactions: iodine Allergy (Verified 08/21/17 21:44) Shellfish * [Shellfish] Allergy (Verified 08/21/17 21:44) swelling strawberry Allergy (Verified 08/21/17 21:44) swelling Past Medical History - Social History Family history: Reviewed & Not Pertinent Pulmonary Medical History: Reports: Hx Asthma Neurological Medical History: Reports: Hx Migraine Renal/ Medical History: Denies: Hx Peritoneal Dialysis Psychiatric Medical History: Reports: Hx Attention Deficit Hyperactivity Disorder, Hx Bipolar Disorder, Hx Depression, Hx Schizophrenia Past Surgical History: Reports: Hx Oral Surgery - Immunizations Immunizations up to date: Yes Hx Diphtheria, Pertussis, Tetanus Vaccination: Yes History of Influenza Vaccine for 01/2017 - 06/2017 Season: Refused
--- NOTE | 2017-12-27 23:57 | RADIOLOGY REPORT (SQ) ---
XR CHEST 2 VIEWS HISTORY: Fever, cough. COMPARISON: 11/02/2016 FINDINGS/IMPRESSION: Normal cardiomediastinal contours. Lungs are clear. No pleural effusion or pneumothorax. No acute osseous findings.
--- NOTE | 2017-12-28 00:37 | ER Document Report ---
ED General - General Chief Complaint: Cold Symptoms Stated Complaint: BREATHING TROUBLE Time Seen by Provider: 12/27/17 22:55 Mode of Arrival: Ambulatory Notes: Patient is a 22-year-old female who presents with chief complaint of Sore throat and low-grade fever last 2 days. Patient reports she has a 5-month-old baby at home who was diagnosed with a pneumonia. Patient has a past medical history of asthma. Patient denies any chest pain or shortness of breath. TRAVEL OUTSIDE OF THE [place] IN LAST 30 DAYS: No - Related Data Allergies/Adverse Reactions: iodine Allergy (Verified 08/21/17 21:44) Shellfish * [Shellfish] Allergy (Verified 08/21/17 21:44) swelling strawberry Allergy (Verified 08/21/17 21:44) swelling Past Medical History - General Information source: Patient - Social History Smoking Status: Never Smoker Frequency of alcohol use: None Drug Abuse: None Family History: Reviewed & Not Pertinent, Other - gall bladder Pulmonary Medical History: Reports: Hx Asthma Neurological Medical History: Reports: Hx Migraine Renal/ Medical History: Denies: Hx Peritoneal Dialysis Psychiatric Medical History: Reports: Hx Attention Deficit Hyperactivity Disorder, Hx Bipolar Disorder, Hx Depression, Hx Schizophrenia Past Surgical History: Reports: Hx Oral Surgery - Immunizations Immunizations up to date: Yes Hx Diphtheria, Pertussis, Tetanus Vaccination: Yes Review of Systems - Review of Systems Constitutional: See HPI EENT: See HPI Cardiovascular: No symptoms reported Respiratory: See HPI Gastrointestinal: No symptoms reported Genitourinary: No symptoms reported Female Genitourinary: No symptoms reported Musculoskeletal: No symptoms reported Skin: No symptoms reported Hematologic/Lymphatic: No symptoms reported Neurological/Psychological: No symptoms reported Physical Exam - Vital signs Vitals: Temp Pulse Resp BP Pulse Ox 99 F 82 16 120/72 100 12/28/17 00:55 12/28/17 00:55 12/28/17 00:55 12/28/17 00:55 12/28/17 00:55 - Notes Notes: PHYSICAL EXAMINATION: GENERAL: Well-appearing, well-nourished and in no acute distress. HEAD: Atraumatic, normocephalic. EYES: Pupils equal round extraocular movements intact, conjunctiva are normal. ENT: Nares patent NECK: Normal range of motion LUNGS: No respiratory distress, mild expiratory wheezing noted. Musculoskeletal: Normal range of motion NEUROLOGICAL: Normal speech, normal gait. PSYCH: Normal mood, normal affect. SKIN: Warm, Dry, normal turgor, no rashes or lesions noted. Course - Re-evaluation Re-evalutation: Patient's wheezing resolved after one DuoNeb treatment. Chest x-ray is negative for any acute findings. Patient with likely viral upper respiratory illness. Patient will be discharged home at this time in stable condition. - Vital Signs Vital signs: Temp Pulse Resp BP Pulse Ox 99 F 82 16 120/72 100 12/28/17 00:55 12/28/17 00:55 12/28/17 00:55 12/28/17 00:55 12/28/17 00:55 Discharge - Discharge Clinical Impression: Cough, Viral illness Fever Qualifiers: Fever type: unspecified Qualified Code(s): R50.9 - Fever, unspecified Condition: Stable Disposition: HOME, SELF-CARE Additional Instructions: Viral Syndrome The physician has diagnosed a viral infection. Viruses not only cause "colds," but can cause many different symptoms including generalized aching, fever, headache, cough, diarrhea, nausea, vomiting, and fatigue. The treatment, for the most part, is simply relief of symptoms. This means that antibiotics are usually not given. Rest, fluids, pain medications and, occasionally, medication for the specific symptoms that are most bothersome will be prescribed. Use good handwashing to avoid passing the virus to others. Shared toys should be cleaned with disinfectant. Clean the toilets, sinks, and counter surfaces in bathrooms. Launder clothing in hot water. Contact the physician if you develop any new or unusual symptoms such as severe headache, stiff neck, high fever, chest pain, productive cough, or shortness of breath. You should be rechecked if you don't see marked improvement within seven to 10 days. Please perform good handwashing especially when handling your . Please return to your primary care provider if your symptoms persist past the next 3-5 days. At this time your chest x-ray is negative and does not appear to show any pneumonia. Your rapid strep is also negative. You may take over-the- counter cough and cold medications for symptomatic relief. May also take acetaminophen and/or ibuprofen for aches and pains. Prescriptions: Benzonatate [Tessalon Perles 100 mg Capsule] 100 mg PO Q8HP PRN #40 capsule PRN Reason: Fluticasone Propionate [Flonase Nasal Sidman 50 Mcg/Sidman 16 gm] 2 sprays NASL Q12 #1 inhaler
[2017-12-28 00:59] VITALS: BP 120/72
== END 2017-12-28 00:56 | disposition home or self-care (01) ==
LOC: ER 21:31
DX: B34.9 Viral infection, unspecified (principal); R05 Cough; J02.9 Acute pharyngitis, unspecified; R50.9 Fever, unspecified; J45.909 Unspecified asthma, uncomplicated; Z91.013 Allergy to seafood; Z91.018 Allergy to other foods
CPT/HCPCS: 94640; 99283; 87070; 87880; 71046; J7512; J7620

== ENCOUNTER 2018-04-15 10:39 | Emergency (ER) | payer SELFPAY ==
--- NOTE | 2018-04-15 10:57 | ER Document Report ---
ED Medical Screen (RME) - General Chief Complaint: Vaginal Bleeding Stated Complaint: VAGINAL BLEEDING Time Seen by Provider: 04/15/18 10:54 Mode of Arrival: Ambulatory Information source: Patient TRAVEL OUTSIDE OF THE [place] IN LAST 30 DAYS: No - HPI Patient complains to provider of: vaginal bleeding Onset: Other - pt. started with vaginal bleeding 3 days ago with abd. cramping. Had depo shot last month - Related Data Allergies/Adverse Reactions: iodine Allergy (Verified 04/15/18 10:40) Shellfish * [Shellfish] Allergy (Verified 04/15/18 10:40) swelling strawberry Allergy (Verified 04/15/18 10:40) swelling Past Medical History - Social History Family history: Reviewed & Not Pertinent Pulmonary Medical History: Reports: Hx Asthma Neurological Medical History: Reports: Hx Migraine Renal/ Medical History: Denies: Hx Peritoneal Dialysis Psychiatric Medical History: Reports: Hx Attention Deficit Hyperactivity Disorder, Hx Bipolar Disorder, Hx Depression, Hx Schizophrenia Past Surgical History: Reports: Hx Oral Surgery - Immunizations Immunizations up to date: Yes Hx Diphtheria, Pertussis, Tetanus Vaccination: Yes History of Influenza Vaccine for 01/2017 - 06/2017 Season: Refused Physical Exam - Vital signs Vitals: Temp Pulse Resp BP Pulse Ox 98.9 F 95 20 109/70 97 04/15/18 10:41 04/15/18 10:41 04/15/18 10:41 04/15/18 10:41 04/15/18 10:41 Course - Vital Signs Vital signs: Temp Pulse Resp BP Pulse Ox 98.9 F 95 20 109/70 97 04/15/18 10:41 04/15/18 10:41 04/15/18 10:41 04/15/18 10:41 04/15/18 10:41
[2018-04-15 11:37] LABS: ABSOLUTE LYMPHOCYTES (AUTO) 1.6 10^3/uL (0.5-4.7); ABSOLUTE MONOCYTES (AUTO) 0.5 10^3/uL (0.1-1.4); ABSOLUTE NEUT (AUTO) 3.2 10^3/uL (1.7-8.2); BASOPHILS % (AUTO) 0.3 % (0-2); EOSINOPHILS % (AUTO) 0.5 % (0-6); HEMOGLOBIN 11.8 g/dL (12.0-15.5); LYMPHOCYTES % (AUTO) 29.6 % (13-45); MEAN CORPUSCULAR HEMOGLOBIN 23.5 pg (27.0-33.4); MEAN CORPUSCULAR HGB CONC 32.7 g/dL (32.0-36.0); MEAN CORPUSCULAR VOLUME 72 fl (80-97); MONOCYTES % (AUTO) 9.8 % (3-13); PLATELET COUNT 356 10^3/uL (150-450); RED BLOOD COUNT 4.99 10^6/uL (3.72-5.28); RED CELL DISTRIBUTION WIDTH 17.5 % (11.5-14.0); SEGMENTED NEUTROPHILS % (AUTO) 59.8 % (42-78); TOTAL CELLS COUNTED % (AUTO) 100 %; WHITE BLOOD COUNT 5.3 10^3/uL (4.0-10.5)
[2018-04-15 11:49] LABS: APPEARANCE,URINE SLIGHTLY-CLOUDY; BILIRUBIN,URINE NEGATIVE (NEGATIVE); COLOR,URINE YELLOW; GLUCOSE, URINE NEGATIVE (NEGATIVE); KETONES,URINE NEGATIVE (NEGATIVE); LEUKOCYTE ESTERASE,URINE SMALL (NEGATIVE); NITRITE,URINE NEGATIVE (NEGATIVE); PROTEIN,URINE NEGATIVE (NEGATIVE); URINE SPECIFIC GRAVITY 1.028; UROBILINOGEN,URINE NEGATIVE mg/dL (<2.0)
[2018-04-15 12:06] LABS: ALANINE AMINOTRANSFERASE 21 U/L (9-52); ALBUMIN 4.2 g/dL (3.5-5.0); ALKALINE PHOSPHATASE 84 U/L (38-126); ANION GAP 10 (5-19); ASPARTATE AMINO TRANSFERASE 20 U/L (14-36); BILIRUBIN,DIRECT 0.3 mg/dL (0.0-0.4); BILIRUBIN,TOTAL 0.3 mg/dL (0.2-1.3); BLOOD UREA NITROGEN 13 mg/dL (7-20); CALCIUM 9.6 mg/dL (8.4-10.2); CARBON DIOXIDE 28 mmol/L (22-30); CHLORIDE 104 mmol/L (98-107); GLUCOSE 79 mg/dL (75-110); POTASSIUM 4.2 mmol/L (3.6-5.0); SODIUM 141.6 mmol/L (137-145); TOTAL PROTEIN 7.8 g/dL (6.3-8.2)
[2018-04-15] MEDS ORDERED: ONDANSETRON HCL INJ/PF 4 MG/2 ML SDV IV ONE (12:53)
[2018-04-15] MEDS ORDERED: MORPHINE SULFATE 10 MG/ML INJ IV ONE (12:53)
--- NOTE | 2018-04-15 13:01 | ER Document Report ---
ED GI/ - General Chief Complaint: Vaginal Bleeding Stated Complaint: VAGINAL BLEEDING Time Seen by Provider: 04/15/18 10:54 Mode of Arrival: Ambulatory Notes: Patient is a otherwise healthy 23-year-old female who presents to the emergency department with chief complaints of low abdominal pain that started 2 days ago. Patient reports she has had nausea with vomiting, last emesis was yesterday. Patient denies any fever diarrhea. Patient denies any abnormal vaginal discharge or dysuria. Patient reports that the pain is located in the low and upper abdomen right at the midline. She denies any pain on either side of this. She reports she is also having some irregular vaginal bleeding, she states her bleeding started 3 days ago. Patient reports that she usually takes the Depo-Provera shot, last dose was given on 03/17/18. Patient denies any past medical or surgical history. Patient does report that she is sexually active however she is denying any concern for STDs. TRAVEL OUTSIDE OF THE [place] IN LAST 30 DAYS: No - Related Data Allergies/Adverse Reactions: iodine Allergy (Verified 04/15/18 10:58) Shellfish * [Shellfish] Allergy (Verified 04/15/18 10:58) swelling strawberry Allergy (Verified 04/15/18 10:58) swelling Past Medical History - General Information source: Patient Last Menstrual Period: 08/05/2017 - Social History Smoking Status: Never Smoker Chew tobacco use (# tins/day): No Frequency of alcohol use: None Drug Abuse: None Family History: Reviewed & Not Pertinent, Other - gall bladder Patient has suicidal ideation: No Patient has homicidal ideation: No Pulmonary Medical History: Reports: Hx Asthma Neurological Medical History: Reports: Hx Migraine Renal/ Medical History: Denies: Hx Peritoneal Dialysis Psychiatric Medical History: Reports: Hx Attention Deficit Hyperactivity Disorder, Hx Bipolar Disorder, Hx Depression, Hx Schizophrenia Past Surgical History: Reports: Hx Oral Surgery - Immunizations Immunizations up to date: Yes Hx Diphtheria, Pertussis, Tetanus Vaccination: Yes Review of Systems - Review of Systems Gastrointestinal: Abdominal pain, Nausea, Vomiting. denies: Diarrhea, Constipation, Blood streaked bowels, Blood in vomit Genitourinary: denies: Dysuria, Discharge, Frequency, Flank pain Female Genitourinary: Vaginal bleeding. denies: Vaginal discharge -: Yes All other systems reviewed and negative Physical Exam - Vital signs Vitals: Temp Pulse Resp BP Pulse Ox 98.9 F 95 20 109/70 97 04/15/18 10:41 04/15/18 10:41 04/15/18 10:41 04/15/18 10:41 04/15/18 10:41 - Notes Notes: PHYSICAL EXAMINATION: GENERAL: Well-appearing, well-nourished and in moderate distress. HEAD: Atraumatic, normocephalic. EYES: Pupils equal round and reactive to light, extraocular movements intact, conjunctiva are normal. ENT: Nares patent, oropharynx clear without exudates. Moist mucous membranes. NECK: Normal range of motion, supple without lymphadenopathy LUNGS: Breath sounds clear to auscultation bilaterally and equal. No wheezes rales or rhonchi. HEART: Regular rate and rhythm without murmurs ABDOMEN: Soft, large, round nondistended abdomen. Tenderness to palpation on upper and lower abdomen at the midline. No guarding, no rebound. No masses appreciated. Genitourinary: No CVA tenderness, refused speculum exam. Musculoskeletal: Normal range of motion, no pitting or edema. No cyanosis. NEUROLOGICAL: Cranial nerves grossly intact. Normal speech, normal gait. Normal sensory, motor exams PSYCH: Normal mood, normal affect. SKIN: Warm, Dry, normal turgor, no rashes or lesions noted. Course - Re-evaluation Re-evalutation: CBC, CMP and urinalysis are unremarkable. Transvaginal ultrasound with no acute findings. Patient refusing pelvic exam. Patient does report that the morphine did ease her pain off somewhat however it has returned. Patient reports the pain is like no other pain she has had before, states it is similar pain to when she experienced childbirth. We will proceed at this time with a CT of the abdomen and pelvis with oral contrast only as patient reports anaphylaxis with iodine. 04/15/18 16:25 Within a few minutes of the power technician bringing the patient and her oral contrast the patient did call out to the nurse stating that she was not going to drink anymore contrast. Both the nurse and I went to the patient's bedside and discussed this with the patient's, due to patient's BMI of 38 we can proceed with a CAT scan without IV or oral contrast. This was further discussed with the patient, patient now refusing any additional workup stating that she is ready to go home. I did explain to the patient that I have not been able to find the cause of her pain with the brought her in today therefore I cannot assure that she does not have any life-threatening pathology such as an acute appendicitis. Patient is of sound mind and is able to understand and make decisions on her own. I did give patient very strict ED return precautions and reassured her that we would be happy to reevaluate her at any time. - Vital Signs Vital signs: Temp Pulse Resp BP Pulse Ox 98.2 F 53 L 18 107/74 100 04/15/18 15:17 04/15/18 15:17 04/15/18 15:17 04/15/18 15:17 04/15/18 15:17 - Laboratory Result Diagrams: 04/15/18 11:03 04/15/18 11:03 Laboratory results interpreted by me: 04/15/18 04/15/18 11:03 11:03 Hgb 11.8 L MCV 72 L MCH 23.5 L RDW 17.5 H Ur Leukocyte Esterase SMALL H Discharge - Discharge Clinical Impression: Abdominal pain Qualifiers: Abdominal location: lower abdomen, unspecified Qualified Code(s): R10.30 - Lower abdominal pain, unspecified Vomiting with nausea, not intractable Qualifiers: Vomiting type: unspecified Qualified Code(s): R11.2 - Nausea with vomiting, unspecified Condition: Stable Disposition: HOME, SELF-CARE Additional Instructions: Abdominal Pain There are many causes of abdominal pain. Pain can mean a serious problem requiring surgery (such as appendicitis). It can also be an innocent problem that goes away on its own (such as a viral infection). Often, time must pass to determine the cause of pain. The physician does not feel that hospitalization is necessary, at present. Things may change within the next 24 hours. Call the doctor or come back for re- examination if any problems occur, such as: (1) Pain that becomes more severe, steady, or becomes concentrated in one specific area. Also, pain that is more severe with movement or coughing. (2) Vomiting that persists or becomes more frequent. (3) Blood in the vomitus, urine, or bowel movements. Blood in the stool may have a tarry or black appearance. (4) Shaking chills or fever greater than 100 degrees F. (5) The abdomen becomes more distended or swollen. (6) Bowel movements cease. (7) Failure to improve as expected. Observation for Appendicitis At this time, the abdominal pain does not seem to be appendicitis. Our next "test" will be passage of time. If you have early appendicitis, signs will appear to help us make the diagnosis. Most of the time, the pain goes away. In these cases, the pain is usually due to a virus in the lymph glands near the appendix, or due to an ovarian cyst or ovulation. Unless the pain is gone, you should come back for a recheck. This is usually done in 8 to 12 hours. Be sure you understand your follow-up instructions. Come back immediately if: (1) the pain becomes much more severe and sharply increases with movement or coughing, (2) vomiting becomes frequent, (3) there is blood in the vomit, urine, or bowel movements, (4) there are shaking chills or fever, or (5) the abdomen becomes more distended or swollen. Your blood work, urine and pelvic ultrasound were normal today. We were unable to find a cause of the abdominal pain and vomiting it has been experiencing over the last 2 days. You have declined to stay for continued workup to include a CT scan. Please return to the emergency department if you experience any of the above warning signs. We are happy to reevaluate you at any time.
--- NOTE | 2018-04-15 14:01 | RADIOLOGY REPORT (SQ) ---
EXAM DESCRIPTION: U/S NON OB PEL TV W/DOPPLER COMPLETED DATE/TIME: 04/15/2018 1:48 pm REASON FOR STUDY: abnormal vaginal bleeding COMPARISON: None. TECHNIQUE: Dynamic and static grayscale images acquired of the pelvis via transvaginal approach and recorded on PACS. Additional selected color Doppler and spectral images recorded. LIMITATIONS: None. FINDINGS: UTERUS: Contour normal. No mass. ENDOMETRIAL STRIPE: No focal or generalized thickening. No masses. CERVIX: No nabothian cysts. RIGHT OVARY AND DOPPLER: Normal size. No worrisome masses. Normal arterial vascular flow without evid ence for torsion. LEFT OVARY AND DOPPLER: Not seen. No regional mass. FREE FLUID: None noted. OTHER: No other significant finding. MEASUREMENTS: UTERUS: 7 x 5 x 5 cm ENDOMETRIAL STRIPE: 2 mm RIGHT OVARY: 3 x 2 x 2 cm LEFT OVARY: Not seen. IMPRESSION: Allowing for nonvisualization of the left ovary, unremarkable transvaginal pelvic ultras ound. TECHNICAL DOCUMENTATION: JOB ID: [id number] [email or web address]- All Rights Reserved Reading location - IP/workstation name: [email or web address]
[2018-04-15] MEDS ORDERED: METOCLOPRAMIDE HCL INJ/PF 10 MG/2 ML SDV IV ONE (15:50)
[2018-04-15 16:43] VITALS: BP 119/68
== END 2018-04-15 16:43 | disposition home or self-care (01) ==
LOC: ER 10:39
DX: R10.30 Lower abdominal pain, unspecified (principal); R11.2 Nausea with vomiting, unspecified; N93.9 Abnormal uterine and vaginal bleeding, unspecified; R10.10 Upper abdominal pain, unspecified; J45.909 Unspecified asthma, uncomplicated
CPT/HCPCS: 99284; 96374; 96375; 36415; 85025; 81025; 80053; 81001; 76830; 93976; J2765; J2270; J2405

== ENCOUNTER 2018-05-11 17:48 | Emergency (ER) | payer SELFPAY ==
--- NOTE | 2018-05-11 18:44 | ER Document Report ---
ED Medical Screen (RME) - General Chief Complaint: Abdominal Pain Stated Complaint: HEAD CONGESTION Time Seen by Provider: 05/11/18 18:39 Notes: 23 years old female with a history of multiple ED visits multiple medical complaints. Presents today with cough general malaise, general body aches and pain. Coughing causing her to have lower back pain. TRAVEL OUTSIDE OF THE [place] IN LAST 30 DAYS: No - Related Data Allergies/Adverse Reactions: iodine Allergy (Verified 05/11/18 17:50) Shellfish * [Shellfish] Allergy (Verified 05/11/18 17:50) swelling strawberry Allergy (Verified 05/11/18 17:50) swelling Past Medical History - Social History Family history: Reviewed & Not Pertinent Pulmonary Medical History: Reports: Hx Asthma Neurological Medical History: Reports: Hx Migraine Renal/ Medical History: Denies: Hx Peritoneal Dialysis Psychiatric Medical History: Reports: Hx Attention Deficit Hyperactivity Disorder, Hx Bipolar Disorder, Hx Depression, Hx Schizophrenia Past Surgical History: Reports: Hx Oral Surgery - Immunizations Immunizations up to date: Yes Hx Diphtheria, Pertussis, Tetanus Vaccination: Yes History of Influenza Vaccine for 01/2017 - 06/2017 Season: Refused Physical Exam - Vital signs Vitals: Temp Pulse Resp BP Pulse Ox 98.2 F 82 16 120/86 H 99 05/11/18 18:15 05/11/18 18:15 05/11/18 18:15 05/11/18 18:15 05/11/18 18:15 Course - Vital Signs Vital signs: Temp Pulse Resp BP Pulse Ox 98.2 F 82 16 120/86 H 99 05/11/18 18:15 05/11/18 18:15 05/11/18 18:15 05/11/18 18:15 05/11/18 18:15
--- NOTE | 2018-05-11 20:01 | RADIOLOGY REPORT (SQ) ---
EXAM DESCRIPTION: CHEST SINGLE VIEW COMPLETED DATE/TIME: 05/11/2018 7:53 pm REASON FOR STUDY: Cough COMPARISON: 12/28/2017. EXAM PARAMETERS: NUMBER OF VIEWS: One view. TECHNIQUE: Single frontal radiographic view of the chest acquired. RADIATION DOSE: NA LIMITATIONS: None. FINDINGS: LUNGS AND PLEURA: No opacities, masses or pneumothorax. No pleural effusion. MEDIASTINUM AND HILAR STRUCTURES: No masses. Contour normal. HEART AND VASCULAR STRUCTURES: Heart normal in size. Normal vasculature. BONES: No acute findings. HARDWARE: None in the chest. OTHER: No other significant finding. IMPRESSION: NO ACUTE RADIOGRAPHIC FINDING IN THE CHEST. TECHNICAL DOCUMENTATION: JOB ID: [id number] [email or web address]- All Rights Reserved Reading location - IP/workstation name: [email or web address]
[2018-05-11 20:18] LABS: ABSOLUTE LYMPHOCYTES (AUTO) 1.5 10^3/uL (0.5-4.7); ABSOLUTE MONOCYTES (AUTO) 0.6 10^3/uL (0.1-1.4); BASOPHILS % (AUTO) 0.5 % (0-2); EOSINOPHILS % (AUTO) 0.2 % (0-6); HEMATOCRIT 38.5 % (36.0-47.0); HEMOGLOBIN 12.5 g/dL (12.0-15.5); LYMPHOCYTES % (AUTO) 29.5 % (13-45); MEAN CORPUSCULAR HEMOGLOBIN 23.7 pg (27.0-33.4); MEAN CORPUSCULAR HGB CONC 32.5 g/dL (32.0-36.0); MEAN CORPUSCULAR VOLUME 73 fl (80-97); MONOCYTES % (AUTO) 11.7 % (3-13); PLATELET COUNT 319 10^3/uL (150-450); RED BLOOD COUNT 5.27 10^6/uL (3.72-5.28); RED CELL DISTRIBUTION WIDTH 17.6 % (11.5-14.0); SEGMENTED NEUTROPHILS % (AUTO) 58.1 % (42-78); TOTAL CELLS COUNTED % (AUTO) 100 %; WHITE BLOOD COUNT 5.2 10^3/uL (4.0-10.5)
[2018-05-11 20:26] LABS: A TYPE INFLUENZA AG NEGATIVE (NEGATIVE); B INFLUENZA AG NEGATIVE (NEGATIVE)
[2018-05-11 20:30] LABS: APPEARANCE,URINE SLIGHTLY-CLOUDY; BILIRUBIN,URINE NEGATIVE (NEGATIVE); COLOR,URINE YELLOW; GLUCOSE, URINE NEGATIVE (NEGATIVE); KETONES,URINE NEGATIVE (NEGATIVE); LEUKOCYTE ESTERASE,URINE MODERATE (NEGATIVE); NITRITE,URINE NEGATIVE (NEGATIVE); PROTEIN,URINE NEGATIVE (NEGATIVE); URINE SPECIFIC GRAVITY 1.029
[2018-05-11 20:35] LABS: ALANINE AMINOTRANSFERASE 18 U/L (9-52); ALBUMIN 4.3 g/dL (3.5-5.0); ALKALINE PHOSPHATASE 80 U/L (38-126); ANION GAP 8 (5-19); ASPARTATE AMINO TRANSFERASE 19 U/L (14-36); BILIRUBIN,DIRECT 0.2 mg/dL (0.0-0.4); BILIRUBIN,TOTAL 0.2 mg/dL (0.2-1.3); BLOOD UREA NITROGEN 17 mg/dL (7-20); CALCIUM 9.5 mg/dL (8.4-10.2); CARBON DIOXIDE 28 mmol/L (22-30); CHLORIDE 105 mmol/L (98-107); GLUCOSE 99 mg/dL (75-110); POTASSIUM 4.3 mmol/L (3.6-5.0); SODIUM 141.2 mmol/L (137-145); TOTAL PROTEIN 7.5 g/dL (6.3-8.2)
--- NOTE | 2018-05-11 22:49 | ER Document Report ---
ED General - General Chief Complaint: Abdominal Pain Stated Complaint: HEAD CONGESTION Time Seen by Provider: 05/11/18 18:39 Mode of Arrival: Ambulatory Information source: Patient Notes: This is a 23-year-old female who presents to the emergency room with cough, congestion, sore throat, sinus congestion and body aches for the past 3 days. She does report subjective fevers. TRAVEL OUTSIDE OF THE [place] IN LAST 30 DAYS: No - HPI Onset: Last week Onset/Duration: Gradual Quality of pain: No pain Severity: Mild Associated symptoms: Nonproductive cough, Fever, Sore throat. denies: Shortness of breath Exacerbated by: Denies Relieved by: Denies Similar symptoms previously: No Recently seen / treated by doctor: No - Related Data Allergies/Adverse Reactions: iodine Allergy (Verified 05/11/18 17:50) Shellfish * [Shellfish] Allergy (Verified 05/11/18 17:50) swelling strawberry Allergy (Verified 05/11/18 17:50) swelling Past Medical History - General Information source: Patient - Social History Smoking Status: Current Every Day Smoker Cigarette use (# per day): Yes - Half pack per day Chew tobacco use (# tins/day): No Frequency of alcohol use: None Drug Abuse: None Lives with: Family Family History: Reviewed & Not Pertinent, Other - gall bladder Patient has suicidal ideation: No Patient has homicidal ideation: No Pulmonary Medical History: Reports: Hx Asthma Neurological Medical History: Reports: Hx Migraine Renal/ Medical History: Denies: Hx Peritoneal Dialysis Psychiatric Medical History: Reports: Hx Attention Deficit Hyperactivity Disorder, Hx Bipolar Disorder, Hx Depression, Hx Schizophrenia Past Surgical History: Reports: Hx Oral Surgery - Immunizations Immunizations up to date: Yes Hx Diphtheria, Pertussis, Tetanus Vaccination: Yes Review of Systems - Review of Systems Constitutional: See HPI, Chills, Fever EENT: See HPI Cardiovascular: No symptoms reported Respiratory: See HPI Gastrointestinal: No symptoms reported Genitourinary: No symptoms reported Female Genitourinary: No symptoms reported Musculoskeletal: No symptoms reported Skin: No symptoms reported Hematologic/Lymphatic: No symptoms reported Neurological/Psychological: No symptoms reported Physical Exam - Vital signs Vitals: Temp Pulse Resp BP Pulse Ox 98.2 F 82 16 120/86 H 99 05/11/18 18:15 05/11/18 18:15 05/11/18 18:15 05/11/18 18:15 05/11/18 18:15 Notes: Physical exam: GENERAL: Patient is alert and oriented x3, no acute distress HEAD: Atraumatic, normocephalic. EYES: Pupils equal round and reactive to light, extraocular movements intact, sclera anicteric, conjunctiva are normal. ENT: TMs normal, nares patent, oropharynx clear without exudates. Moist mucous membranes. NECK: Normal range of motion, supple without obvious mass or JVD. LUNGS: Breath sounds clear to auscultation bilaterally and equal. No wheezes rales or rhonchi. HEART: Regular rate and rhythm without murmurs, rubs or gallops. ABDOMEN: Soft, normoactive bowel sounds. No tenderness to palpation. No guarding, no rebound. No masses appreciated. EXTREMITIES: Normal range of motion, no pitting or edema. No clubbing or cyanosis. NEUROLOGICAL: Cranial nerves II through XII grossly intact. Normal speech, moving all extremities. PSYCH: Normal mood, normal affect. SKIN: Warm, Dry, normal turgor, no rashes or lesions noted. Course - Vital Signs Vital signs: Temp Pulse Resp BP Pulse Ox 98.2 F 82 16 120/86 H 99 05/11/18 18:15 05/11/18 18:15 05/11/18 18:15 05/11/18 18:15 05/11/18 18:15 - Laboratory Result Diagrams: 05/11/18 19:30 05/11/18 19:30 Laboratory results interpreted by me: 05/11/18 05/11/18 19:30 19:30 MCV 73 L MCH 23.7 L RDW 17.6 H Urine Urobilinogen 2.0 H Ur Leukocyte Esterase MODERATE H Urine Ascorbic Acid 40 H - Diagnostic Test Radiology reviewed: Image reviewed, Reports reviewed - Chest x-ray shows no infiltrates Discharge - Discharge Clinical Impression: Strep pharyngitis Condition: Stable Disposition: HOME, SELF-CARE Additional Instructions: As we discussed, the throat test was positive for strep. Given this, we are going to write you for the same antibiotics: Take as prescribed. Taking Mucinex as prescribed to keep the mucus then. Try simply saline nasal spray daily for the next week. Ibuprofen for pain. Rest, drink plenty of fluids, follow-up with your primary care doctor as needed. Return to the emergency room for worsening sore throat, difficulty swallowing or any concerns or getting worse. Prescriptions: Amoxicillin Trihydrate [Amoxil 875 mg Tablet] 1 tab PO BID #20 tablet Guaifenesin [Mucinex] 600 mg PO BID #14 tablet.sa Forms: Return to Work
[2018-05-11 23:19] VITALS: BP 118/75
== END 2018-05-11 22:52 | disposition home or self-care (01) ==
LOC: ER 17:48
DX: J02.0 Streptococcal pharyngitis (principal); R10.9 Unspecified abdominal pain; R05 Cough; M79.10 Myalgia, unspecified site; F17.210 Nicotine dependence, cigarettes, uncomplicated
CPT/HCPCS: 36415; 71045; 80053; 81001; 81025; 85025; 87804; 87880; 99284

== ENCOUNTER 2018-07-19 17:10 | Emergency (ER) | payer SELFPAY ==
--- NOTE | 2018-07-19 18:08 | ER Document Report ---
ED Respiratory Problem - General Chief Complaint: Flu Symptoms Stated Complaint: COUGH Time Seen by Provider: 07/19/18 17:56 Mode of Arrival: Ambulatory Information source: Patient Notes: 23-year-old female presents to ED for complaint of runny nose cough congestion body aches chills for the last 2 days. Patient is alert oriented respirations regular and unlabored speaking in full sentences walks with a even steady gait. Patient states she is not had any fevers. Patient is very morbidly obese at 5 foot 1 and 96.5 kg and a BMI of 40.2 TRAVEL OUTSIDE OF THE [place] IN LAST 30 DAYS: No - HPI Patient complains to provider of: Cough Onset: Other - 2 days Duration: Continuous Initiating Event: URI Quality of pain: Achy Severity: Moderate Pain Level: 4 Cough: Nonproductive Sputum amount: None Associated symptoms: Congestion, Cough, PND, Runny nose, Sinus pain/pressure, Other - Body aches. denies: Fever Similar symptoms previously: Yes - Related Data Allergies/Adverse Reactions: iodine Allergy (Verified 05/11/18 17:50) Shellfish * [Shellfish] Allergy (Verified 05/11/18 17:50) swelling strawberry Allergy (Verified 05/11/18 17:50) swelling Past Medical History - Social History Smoking Status: Former Smoker Chew tobacco use (# tins/day): No Frequency of alcohol use: None Drug Abuse: None Family History: Reviewed & Not Pertinent, Other - gall bladder Patient has suicidal ideation: No Patient has homicidal ideation: No Pulmonary Medical History: Reports: Hx Asthma Neurological Medical History: Reports: Hx Migraine Renal/ Medical History: Denies: Hx Peritoneal Dialysis Psychiatric Medical History: Reports: Hx Attention Deficit Hyperactivity Disorder, Hx Bipolar Disorder, Hx Depression, Hx Schizophrenia Past Surgical History: Reports: Hx Oral Surgery - Immunizations Immunizations up to date: Yes Hx Diphtheria, Pertussis, Tetanus Vaccination: Yes Review of Systems - Review of Systems Constitutional: Recent illness EENT: Nose congestion, Nose discharge, Sinus pressure, Sinus discharge Cardiovascular: No symptoms reported Respiratory: Cough Gastrointestinal: No symptoms reported Genitourinary: No symptoms reported Female Genitourinary: No symptoms reported Musculoskeletal: Muscle pain, Muscle stiffness Skin: No symptoms reported Hematologic/Lymphatic: No symptoms reported Neurological/Psychological: No symptoms reported -: Yes All other systems reviewed and negative Physical Exam - Vital signs Vitals: Temp Pulse Resp BP Pulse Ox 98.1 F 86 18 116/67 98 07/19/18 17:35 07/19/18 17:35 07/19/18 17:35 07/19/18 17:35 07/19/18 17:35 Interpretation: Normal - General General appearance: Appears well, Alert - HEENT Head: Normocephalic, Atraumatic Eyes: Normal Pupils: PERRL Ears: Normal External canal: Normal Tympanic membrane: Normal Sinus: Normal Nasal: Purulent discharge, Swelling Mouth/Lips: Normal Mucous membranes: Normal Pharynx: Post nasal drainage Neck: Normal - Respiratory Respiratory status: No respiratory distress Chest status: Nontender Breath sounds: Nonproductive cough. No: Productive cough, Rales, Rhonchi, Stridor, Wheezing Chest palpation: Normal - Cardiovascular Rhythm: Regular Heart sounds: Normal auscultation Murmur: No - Abdominal Inspection: Normal Distension: No distension Bowel sounds: Normal Tenderness: Nontender Organomegaly: No organomegaly - Back Back: Normal, Nontender - Extremities General upper extremity: Normal inspection, Nontender, Normal color, Normal ROM, Normal temperature General lower extremity: Normal inspection, Nontender, Normal color, Normal ROM, Normal temperature, Normal weight bearing. No: Merritt's sign - Neurological Neuro grossly intact: Yes Cognition: Normal Orientation: AAOx4 Manny Coma Scale Eye Opening: Spontaneous Manny Coma Scale Verbal: Oriented Manny Coma Scale Motor: Obeys Commands Manny Coma Scale Total: 15 Speech: Normal Motor strength normal: LUE, RUE, LLE, RLE Sensory: Normal - Psychological Associated symptoms: Normal affect, Normal mood - Skin Skin Temperature: Warm Skin Moisture: Dry Skin Color: Normal Course - Re-evaluation Re-evalutation: 07/19/18 20:57 Chest x-ray was negative and discussed with patient. Radiologist read it as an cardiomegaly but when I consulted Dr. Stokes the heart was no bigger than the last x-ray which was read as normal. Patient was instructed to follow-up with her primary doctor. - Vital Signs Vital signs: Temp Pulse Resp BP Pulse Ox 98.1 F 76 18 123/62 98 07/19/18 19:03 07/19/18 19:03 07/19/18 19:03 07/19/18 19:03 07/19/18 19:03 - Diagnostic Test Radiology reviewed: Image reviewed, Reports reviewed Discharge - Discharge Clinical Impression: URI (upper respiratory infection) Qualifiers: URI type: unspecified viral URI Qualified Code(s): J06.9 - Acute upper respiratory infection, unspecified Condition: Stable Disposition: HOME, SELF-CARE Instructions: Family Physicians / Practices Additional Instructions: UPPER RESPIRATORY ILLNESS: You have a viral infection of the respiratory passages -- a "cold." This common infection causes nasal congestion, drainage, and often sore throat and cough. It is highly contagious. The disease usually lasts about 10 to 14 days. There is no "cure" for the viral infection -- it must run its course. If there is a complication, such as bacterial infection in the nose, sinuses, middle ear, or bronchial tubes, antibiotics may be required. The antibiotics won't affect the virus. Drink plenty of fluids. A humidifier may help. An expectorant medication or decongestant may make you more comfortable. Use acetaminophen or ibuprofen for fever or aches. See the doctor if fever persists over two days, if there is any significant worsening of your symptoms, or if you simply fail to improve as expected. DECONGESTANT MEDICATION: A decongestant medicine has been suggested. Often this medicine is combined in the same tablet with an antihistamine or expectorant. This type of medicine is helpful in treating a bad cold or sinus condition, as well as in treatment of the nasal congestion of hay fever. It is not of much benefit for lung infections. Decongestant medicines are related to stimulants. They can cause an increase in blood pressure and heart rate. Persons with heart disease and high blood pressure should not take decongestants without discussing this with the physician. If you develop palpitations, chest pain, headache, or tremors, stop the medicine and consult your physician. COUGH-SUPPRESSANT & EXPECTORANT MEDICATION: You are to use a cough medication as needed for relief of symptoms. This medicine is a combination of an expectorant (to make the mucous thinner and more easily "coughed up") and a cough suppressant (to reduce the frequency of coughing). The cough-suppressant medicine is related to narcotics. You may experience mild nausea and sleepiness. Some patients who are very sensitive to narcotics may have stomach pain from this medicine. Taking the medicine with food reduces these side effects. Do not drive or work with machinery until you know how this medicine affects you. The expectorant should have no side effects. Iodine-containing expectorants (such as organidin) should not be taken by persons with active thyroid disease unless approved by your doctor. Call the doctor if you develop shortness of breath, hives, rash, itching, lightheadedness, or severe nausea and vomiting. USE OF ACETAMINOPHEN (Tylenol): Acetaminophen may be taken for pain relief or fever control. It's much safer than aspirin, offering a wider range of "safe" dosages. It is safe during . Some brand names are Tylenol, Panadol, Datril, Anacin 3, Tempra, and Liquiprin. Acetaminophen can be repeated every four hours. The following are maximum recommended dosages: >89 pounds or adults 650 mg to 900 mg Acetaminophen can be repeated every four hours. Maximum dose not to exceed 4000 mg a day. FOLLOW-UP CARE: If you have been referred to a physician for follow-up care, call the physicians office for an appointment as you were instructed or within the next two days. If you experience worsening or a significant change in your symptoms, notify the physician immediately or return to the Emergency Department at any time for re-evaluation. Forms: Return to Work
--- NOTE | 2018-07-19 18:22 | RADIOLOGY REPORT (SQ) ---
EXAM DESCRIPTION: CHEST 2 VIEWS COMPLETED DATE/TIME: 07/19/2018 6:17 pm REASON FOR STUDY: cough congestion tight hx of asthma COMPARISON: 05/11/2018 EXAM PARAMETERS: NUMBER OF VIEWS: two views TECHNIQUE: Digital Frontal and Lateral radiographic views of the chest acquired. RADIATION DOSE: NA LIMITATIONS: none FINDINGS: LUNGS AND PLEURA: No opacities, masses or pneumothorax. No pleural effusion. MEDIASTINUM AND HILAR STRUCTURES: No masses or contour abnormalities. HEART AND VASCULAR STRUCTURES: Cardiomegaly. BONES: No acute findings. HARDWARE: None in the chest. OTHER: No other significant finding. IMPRESSION: Cardiomegaly without acute abnormality of the lungs. TECHNICAL DOCUMENTATION: JOB ID: [id number] [employer]- All Rights Reserved Reading location - IP/workstation name: [email or web address]
[2018-07-19 19:06] VITALS: BP 123/62
== END 2018-07-19 19:06 | disposition home or self-care (01) ==
LOC: ER 17:10
DX: J06.9 Acute upper respiratory infection, unspecified (principal); B97.89 Other viral agents as the cause of diseases classified elsewhere; R05 Cough; R68.83 Chills (without fever); E66.01 Morbid (severe) obesity due to excess calories; R09.89 Other specified symptoms and signs involving the circulatory and respiratory systems; R09.82 Postnasal drip; R09.81 Nasal congestion; J45.909 Unspecified asthma, uncomplicated; J34.89 Other specified disorders of nose and nasal sinuses; M79.10 Myalgia, unspecified site; Z91.013 Allergy to seafood; Z91.018 Allergy to other foods; Z87.891 Personal history of nicotine dependence
CPT/HCPCS: 71046; 99283

== ENCOUNTER 2019-02-07 17:27 | Emergency (ER) | payer SELFPAY ==
[2019-02-07] MEDS ORDERED: ONDANSETRON 4 MG TAB.RAPDIS PO ONE (18:37)
[2019-02-07] MEDS ORDERED: ACETAMINOPHEN 325 MG TABLET PO ONE (18:37)
--- NOTE | 2019-02-07 18:42 | ER Document Report ---
ED Medical Screen (RME) - General Chief Complaint: Vomiting Stated Complaint: BODY ACHES, VOMITING Time Seen by Provider: 02/07/19 18:29 Notes: Patient is a 23-year-old female presents the emergency department with a chief complaint of nausea and vomiting. Denies diarrhea. Patient states that she is able to keep water and liquid down, but is not able to keep food down. Patient also states that she has a headache. She denies any vaginal discharge, but states that she is sexually active. She received the Depo-Provera shot back in June. She states that she did have some bleeding last month, but has not had any this month. Exam: Soft nontender abdomen. I have greeted and performed a rapid initial assessment of this patient. A comprehensive ED assessment and evaluation of the patient, analysis of test results and completion of medical decision making process will be conducted by an additional ED providers. TRAVEL OUTSIDE OF THE [place] IN LAST 30 DAYS: No - Related Data Allergies/Adverse Reactions: iodine Allergy (Verified 05/11/18 17:50) Shellfish * [Shellfish] Allergy (Verified 05/11/18 17:50) swelling strawberry Allergy (Verified 05/11/18 17:50) swelling Past Medical History - Social History Chew tobacco use (# tins/day): No Frequency of alcohol use: None Drug Abuse: None Family history: Reviewed & Not Pertinent Pulmonary Medical History: Reports: Hx Asthma Neurological Medical History: Reports: Hx Migraine Renal/ Medical History: Denies: Hx Peritoneal Dialysis Psychiatric Medical History: Reports: Hx Attention Deficit Hyperactivity Disorder, Hx Bipolar Disorder, Hx Depression, Hx Schizophrenia Past Surgical History: Reports: Hx Oral Surgery - Immunizations Immunizations up to date: Yes Hx Diphtheria, Pertussis, Tetanus Vaccination: Yes Physical Exam - Vital signs Vitals: Temp Pulse Resp BP Pulse Ox 98.5 F 73 18 125/74 98 02/07/19 17:39 02/07/19 17:39 02/07/19 17:39 02/07/19 17:39 02/07/19 17:39 Course - Vital Signs Vital signs: Temp Pulse Resp BP Pulse Ox 98.5 F 73 18 125/74 98 02/07/19 17:39 02/07/19 17:39 02/07/19 17:39 02/07/19 17:39 02/07/19 17:39
[2019-02-07 19:26] LABS: ABSOLUTE LYMPHOCYTES (AUTO) 1.5 10^3/uL (0.5-4.7); ABSOLUTE MONOCYTES (AUTO) 0.4 10^3/uL (0.1-1.4); ABSOLUTE NEUT (AUTO) 3.1 10^3/uL (1.7-8.2); BASOPHILS % (AUTO) 0.4 % (0-2); EOSINOPHILS % (AUTO) 0.4 % (0-6); HEMATOCRIT 37.6 % (36.0-47.0); HEMOGLOBIN 12.5 g/dL (12.0-15.5); LYMPHOCYTES % (AUTO) 29.4 % (13-45); MEAN CORPUSCULAR HEMOGLOBIN 25.2 pg (27.0-33.4); MEAN CORPUSCULAR HGB CONC 33.1 g/dL (32.0-36.0); MEAN CORPUSCULAR VOLUME 76 fl (80-97); MONOCYTES % (AUTO) 7.8 % (3-13); PLATELET COUNT 369 10^3/uL (150-450); RED BLOOD COUNT 4.94 10^6/uL (3.72-5.28); TOTAL CELLS COUNTED % (AUTO) 100 %
[2019-02-07 19:50] LABS: ALBUMIN 4.1 g/dL (3.5-5.0); ALKALINE PHOSPHATASE 85 U/L (38-126); ANION GAP 7 (5-19); ASPARTATE AMINO TRANSFERASE 22 U/L (14-36); BILIRUBIN,DIRECT 0.1 mg/dL (0.0-0.4); BILIRUBIN,TOTAL 0.2 mg/dL (0.2-1.3); BLOOD UREA NITROGEN 14 mg/dL (7-20); CALCIUM 9.4 mg/dL (8.4-10.2); CARBON DIOXIDE 31 mmol/L (22-30); CHLORIDE 103 mmol/L (98-107); GLUCOSE 87 mg/dL (75-110); POTASSIUM 4.3 mmol/L (3.6-5.0); TOTAL PROTEIN 7.8 g/dL (6.3-8.2)
[2019-02-07 21:57] LABS: APPEARANCE,URINE SLIGHTLY-CLOUDY; BILIRUBIN,URINE NEGATIVE (NEGATIVE); COLOR,URINE YELLOW; GLUCOSE, URINE NEGATIVE (NEGATIVE); KETONES,URINE NEGATIVE (NEGATIVE); LEUKOCYTE ESTERASE,URINE TRACE (NEGATIVE); NITRITE,URINE NEGATIVE (NEGATIVE); PROTEIN,URINE NEGATIVE (NEGATIVE); URINE SPECIFIC GRAVITY 1.029; UROBILINOGEN,URINE NEGATIVE mg/dL (<2.0)
[2019-02-07 23:20] VITALS: BP 125/98
[2019-02-07] MEDS ORDERED: CEPHALEXIN 500 MG CAPSULE PO ONE (23:53)
[2019-02-07] MEDS ORDERED: ONDANSETRON ODT 4 MG TAB (6 TAB/ER DISP) PO PRN (23:53)
--- NOTE | 2019-02-07 23:57 | ER Document Report ---
ED GI/ - General Chief Complaint: Vomiting Stated Complaint: BODY ACHES, VOMITING Time Seen by Provider: 02/07/19 18:29 Notes: Patient is a 23-year-old female that comes emergency department with chief complaint of nausea, vomiting, weakness. Symptoms started yesterday, she states she could not even get out of bed yesterday, today she is actually much better but she still vomited about 3 times. She states that after Zofran from triage she now feels completely normal, she has been drinking dayana shannan while waiting. She states her son was sick with the same symptoms. She denies dysuria, vaginal discharge or bleeding, abdominal surgeries. She is on Depo-Provera, denies medical history otherwise. TRAVEL OUTSIDE OF THE [place] IN LAST 30 DAYS: No - Related Data Allergies/Adverse Reactions: iodine Allergy (Verified 05/11/18 17:50) Shellfish * [Shellfish] Allergy (Verified 05/11/18 17:50) swelling strawberry Allergy (Verified 05/11/18 17:50) swelling Past Medical History - General Information source: Patient - Social History Smoking Status: Current Every Day Smoker Chew tobacco use (# tins/day): No Frequency of alcohol use: None Drug Abuse: None Lives with: Family Family History: Reviewed & Not Pertinent, Other - gall bladder Patient has suicidal ideation: No Patient has homicidal ideation: No Pulmonary Medical History: Reports: Hx Asthma Neurological Medical History: Reports: Hx Migraine Renal/ Medical History: Denies: Hx Peritoneal Dialysis Psychiatric Medical History: Reports: Hx Attention Deficit Hyperactivity Disorder, Hx Bipolar Disorder, Hx Depression, Hx Schizophrenia Past Surgical History: Reports: Hx Oral Surgery - Immunizations Immunizations up to date: Yes Hx Diphtheria, Pertussis, Tetanus Vaccination: Yes Review of Systems - Review of Systems Constitutional: See HPI EENT: No symptoms reported Cardiovascular: No symptoms reported Respiratory: No symptoms reported Gastrointestinal: See HPI Genitourinary: No symptoms reported Female Genitourinary: No symptoms reported Musculoskeletal: No symptoms reported Skin: No symptoms reported Hematologic/Lymphatic: No symptoms reported Neurological/Psychological: No symptoms reported Physical Exam - Vital signs Vitals: Temp Pulse Resp BP Pulse Ox 98.5 F 73 18 125/74 98 02/07/19 17:39 02/07/19 17:39 02/07/19 17:39 02/07/19 17:39 02/07/19 17:39 - Notes Notes: GENERAL: Alert, interacts well. No acute distress. HEAD: Normocephalic, atraumatic. EYES: Pupils equal, round, and reactive to light. Extraocular movements intact. ENT: Oral mucosa moist, tongue midline. Oropharynx unremarkable. Airway patent. LUNGS: Clear to auscultation bilaterally, no wheezes, rales, or rhonchi. No respiratory distress. HEART: Regular rate and rhythm. No murmur ABDOMEN: Soft, non-tender. Non-distended. Bowel sounds present in all 4 quadrants. GENITOURINARY: Deferred EXTREMITIES: Moves all 4 extremities spontaneously. No edema, normal radial and dorsalis pedis pulses bilaterally. No cyanosis. BACK: no cervical, thoracic, lumbar midline tenderness. No saddle anesthesia, normal distal neurovascular exam. Moves all extremities in full range of motion. NEUROLOGICAL: Alert and oriented x3. Normal speech. Cranial nerves II through XII grossly intact. PSYCH: Normal affect, normal mood. SKIN: Warm, dry, normal turgor. No rashes or lesions noted. Course - Re-evaluation Re-evalutation: I did review of labs from triage including CBC, chemistry, lipase, urinalysis, test. I did not order the RhoGam test. Urinalysis does suggest possible infection but patient has no urinary symptoms and I offered treatment and patient wants treatment. Remaining work-up unremarkable. No fever or CVA tenderness. Patient has soft benign abdomen with no current complaints. Vomiting resolved with Zofran. Has had viral exposure. Suspect this is viral gastroenteritis. Patient has been able to tolerate p.o. without difficulty. Discussed treatment, follow-up, return precautions. Patient states appreciation and agreement. - Vital Signs Vital signs: Temp Pulse Resp BP Pulse Ox 97.5 F 72 16 125/98 H 97 02/07/19 23:09 02/07/19 23:09 02/07/19 23:09 02/07/19 23:09 02/07/19 23:09 - Laboratory Result Diagrams: 02/07/19 19:05 02/07/19 19:05 Laboratory results interpreted by me: 02/07/19 02/07/19 02/07/19 19:05 19:05 19:05 MCV 76 L MCH 25.2 L RDW 16.0 H Carbon Dioxide 31 H Ur Leukocyte Esterase TRACE H Discharge - Discharge Clinical Impression: Dehydration Nausea & vomiting Qualifiers: Vomiting type: unspecified Vomiting Intractability: non-intractable Qualified Code(s): R11.2 - Nausea with vomiting, unspecified Condition: Stable Disposition: HOME, SELF-CARE Additional Instructions: Your work-up shows dehydration and likely a developing urinary tract infection, no concerning findings otherwise. This is most likely viral gastroenteritis and should resolve on its own with time. Take Zofran for nausea, drink plenty fluids, start with bland food, complete antibiotics. Follow-up with primary care. Come back if you are worse including uncontrolled vomiting, fever, or any other concerning symptoms. Prescriptions: Cephalexin Monohydrate [Keflex 500 mg Capsule] 500 mg PO BID 3 Days #6 capsule Ondansetron [Zofran Odt 4 mg Tablet] 1 - 2 tab PO Q4H PRN #15 tab.rapdis PRN Reason: For Nausea/Vomiting Forms: Return to Work
== END 2019-02-08 00:02 | disposition home or self-care (01) ==
LOC: ER 17:27
DX: R11.2 Nausea with vomiting, unspecified (principal); E86.0 Dehydration; R53.1 Weakness; F17.200 Nicotine dependence, unspecified, uncomplicated; J45.909 Unspecified asthma, uncomplicated
CPT/HCPCS: 86900; 86901; 36415; 84703; 85025; 80053; 81001; S0119; 87086; 99283

== ENCOUNTER 2019-03-17 14:01 | Emergency (ER) | payer MEDICAID ==
[2019-03-17] MEDS ORDERED: ACETAMINOPHEN 325 MG TABLET PO ONE (14:19)
--- NOTE | 2019-03-17 14:21 | ER Document Report ---
ED Medical Screen (RME) - General Chief Complaint: Headache Stated Complaint: HEADACHE/KNEE PAIN Time Seen by Provider: 03/17/19 14:10 Primary Care Provider: JOSÉ BLANCAS MD [Primary Care Provider] - Follow up as needed Notes: Patient presents with a headache x4 days. Patient reports she has history of migraines and this is typical pain pattern but they typically resolve after 1 day. Patient also complains of left knee pain. NEURO: A &O X 3, normal speech, normal gait, PERRL, EOMI, SILT, follows commands in all 4 extremities, no gross abnormalities of cranial nerves, no focal neuro deficits, no pronator drift, [id number] testing normal, [id number] normal, shearing shed hand strength 5/5 bilateral, 5/5 strength in both proximal and distal upper and lower extremities I have greeted and performed a rapid initial assessment of this patient. A comprehensive ED assessment and evaluation of the patient, analysis of test results and completion of medical decision making process will be conducted by an additional ED providers. TRAVEL OUTSIDE OF THE [place] IN LAST 30 DAYS: No - Related Data Allergies/Adverse Reactions: iodine Allergy (Verified 03/17/19 14:07) Shellfish * [Shellfish] Allergy (Verified 03/17/19 14:07) swelling strawberry Allergy (Verified 03/17/19 14:07) swelling Past Medical History - Social History Chew tobacco use (# tins/day): No Frequency of alcohol use: None Drug Abuse: None Family history: Reviewed & Not Pertinent Pulmonary Medical History: Reports: Hx Asthma Neurological Medical History: Reports: Hx Migraine Renal/ Medical History: Denies: Hx Peritoneal Dialysis Psychiatric Medical History: Reports: Hx Attention Deficit Hyperactivity Disorder, Hx Bipolar Disorder, Hx Depression, Hx Schizophrenia Past Surgical History: Reports: Hx Oral Surgery - Immunizations Immunizations up to date: Yes Hx Diphtheria, Pertussis, Tetanus Vaccination: Yes Physical Exam - Vital signs Vitals: Temp Pulse Resp BP Pulse Ox 98.3 F 71 18 116/72 99 03/17/19 14:07 03/17/19 14:07 03/17/19 14:07 03/17/19 14:07 03/17/19 14:07 Course - Vital Signs Vital signs: Temp Pulse Resp BP Pulse Ox 98.3 F 71 18 116/72 99 03/17/19 14:07 03/17/19 14:07 03/17/19 14:07 03/17/19 14:07 03/17/19 14:07 Doctor's Discharge - Discharge Referrals: JOSÉ BLANCAS MD [Primary Care Provider] - Follow up as needed
[2019-03-17] MEDS: NORMAL SALINE 1000 ML 1,000 ML IV ONE ×2 (14:36→14:56)
[2019-03-17] MEDS: KETOROLAC TROMETHAMINE INJ/PF 30 MG/1 ML SDV IV ONE ×2 (14:37→14:56)
[2019-03-17 15:02] LABS: APPEARANCE,URINE SLIGHTLY-CLOUDY; BILIRUBIN,URINE NEGATIVE (NEGATIVE); COLOR,URINE YELLOW; GLUCOSE, URINE NEGATIVE (NEGATIVE); KETONES,URINE NEGATIVE (NEGATIVE); LEUKOCYTE ESTERASE,URINE SMALL (NEGATIVE); NITRITE,URINE NEGATIVE (NEGATIVE); PROTEIN,URINE NEGATIVE (NEGATIVE); URINE SPECIFIC GRAVITY 1.018; UROBILINOGEN,URINE NEGATIVE mg/dL (<2.0)
[2019-03-17] MEDS ORDERED: BUTALB/ACETAMINOPHEN/CAFFEINE 1 TAB EACH PO ONE (16:10)
--- NOTE | 2019-03-17 16:17 | ER Document Report ---
ED General - General Chief Complaint: Headache Stated Complaint: HEADACHE/KNEE PAIN Time Seen by Provider: 03/17/19 14:10 Primary Care Provider: JOSÉ BLANCAS MD [Primary Care Provider] - Follow up in 3-5 days Notes: 24-year-old female with past medical history of migraines presents for gradual onset headache for 5 days. Patient states it is right sided and is worse with noise/light. Patient states this is like her usual migraine. She has attempted to take Tylenol with little relief. Patient denies any nausea, vomiting, fever, neck pain/stiffness. Patient is also complaining of left knee pain 6 days. States she slipped and fell and "rolled" her knee. States she has been working on it. States it feels like it locks up sometimes. Denies any previous injuries. TRAVEL OUTSIDE OF THE [place] IN LAST 30 DAYS: No - Related Data Allergies/Adverse Reactions: iodine Allergy (Verified 03/17/19 14:07) Shellfish * [Shellfish] Allergy (Verified 03/17/19 14:07) swelling strawberry Allergy (Verified 03/17/19 14:07) swelling Past Medical History - Social History Smoking Status: Never Smoker Chew tobacco use (# tins/day): No Frequency of alcohol use: None Drug Abuse: None Family History: Reviewed & Not Pertinent, Other - gall bladder Patient has suicidal ideation: No Patient has homicidal ideation: No Pulmonary Medical History: Reports: Hx Asthma Neurological Medical History: Reports: Hx Migraine Renal/ Medical History: Denies: Hx Peritoneal Dialysis Psychiatric Medical History: Reports: Hx Attention Deficit Hyperactivity Disorder, Hx Bipolar Disorder, Hx Depression, Hx Schizophrenia Past Surgical History: Reports: Hx Oral Surgery - Immunizations Immunizations up to date: Yes Hx Diphtheria, Pertussis, Tetanus Vaccination: Yes Review of Systems - Review of Systems Notes: Constitutional: Negative for fever. HENT: Negative for sore throat. Eyes: Negative for visual changes. Cardiovascular: Negative for chest pain. Respiratory: Negative for shortness of breath. Gastrointestinal: Negative for abdominal pain, vomiting or diarrhea. Genitourinary: Negative for dysuria. Musculoskeletal: Positive for left knee pain. Negative for back pain. Skin: Negative for rash. Neurological: Positive for headaches. Negative for weakness or numbness. 10 point ROS negative except as marked above and in HPI. Physical Exam - Vital signs Vitals: Temp Pulse Resp BP Pulse Ox 98.3 F 71 18 116/72 99 03/17/19 14:07 03/17/19 14:07 03/17/19 14:07 03/17/19 14:07 03/17/19 14:07 - Notes Notes: GENERAL: Well-appearing, well-nourished and in no acute distress. HEAD: Atraumatic, normocephalic. EYES: Pupils equal round and reactive to light, extraocular movements intact, sclera anicteric, conjunctiva are normal. NECK: Normal range of motion, supple without lymphadenopathy or JVD. LUNGS: Breath sounds clear to auscultation bilaterally and equal. No wheezes rales or rhonchi. HEART: Regular rate and rhythm without murmurs, rubs or gallops. EXTREMITIES: Tenderness to lateral part of left knee. Full range of motion. Normal anterior/posterior drawer. Normal range of motion, no pitting or edema. No clubbing or cyanosis. NEUROLOGICAL: Cranial nerves II through XII grossly intact. Normal speech, normal gait. Signals Intelligence Superintendent strength equal bilaterally. Upper/lower extremity strength equal bilaterally. No facial droop. No tongue deviation. PSYCH: Normal mood, normal affect. SKIN: Warm, Dry, normal turgor, no rashes or lesions noted. Course - Re-evaluation Re-evalutation: 03/17/19 24 y/o female presentation of a headache that appears to be most consistent with migrainous type headache. Headache was not maximal in onset, patient has no focal neurologic deficits, no nuchal rigidity, vital signs within normal limits, no papilledema, and patient is overall well in appearance. Based on clinical history and examination I do not suspect an acute subarachnoid hemorrhage, dural venous sinus thrombosis, acute meningitis, or intercranial mass. Given my low clinical suspicion for any acute life-threatening etiology, I do not feel advanced neuro imaging or laboratory testing is indicated at this time. Migraine cocktail originally ordered however IV failed and pt declined further attempts. Fioricet ordered. Pt also complains of left knee pain s/p injury. Afebrile, nontoxic in appearance. Full ROM, negative anterior/posterior drawer. Able to ambulate without difficulty. X-ray shows no acute abnormality. 03/17/19 17:33 Pt's headache has improved. Reviewed x-ray results with pt and need for follow up with PCP to consider referral to neurology/ortho. Instructions for RICE along with prescriptions for ibuprofen and fioricet given. Return precautions given. All questions/concerns addressed prior to discharge. - Vital Signs Vital signs: Temp Pulse Resp BP Pulse Ox 98.3 F 71 18 116/72 99 03/17/19 14:07 03/17/19 14:07 03/17/19 14:07 03/17/19 14:07 03/17/19 14:07 - Laboratory Laboratory results interpreted by me: 03/17/19 14:22 Ur Leukocyte Esterase SMALL H Discharge - Discharge Clinical Impression: Migraine headache Qualifiers: Migraine type: unspecified Status migrainosus presence: without status migrainosus Intractability: not intractable Qualified Code(s): G43.909 - Migraine, unspecified, not intractable, without status migrainosus Left knee pain Qualifiers: Chronicity: acute Qualified Code(s): M25.562 - Pain in left knee Condition: Stable Disposition: HOME, SELF-CARE Instructions: Headache ([facility]), Knee Exercise Program ([facility]), Sprain ([facility]) Additional Instructions: Your x-ray of your left knee was normal. Rest, ice, and elevate knee. Take ibuprofen as prescribed. Follow up with your primary care doctor in 3-5 days for follow up and possible ortho referral. Return to ER for any worsening symptoms, including fever, worsening pain, inability to walk, or any other concerning symptoms to you. Take fioricet as prescribed for headache. Please follow up with your primary care doctor in 3-5 days for follow up and possible neurology referral. Return to ER for any worsening symptoms, including fever, neck pain, or any other concerning symptoms to you. Prescriptions: Butalb/Acetaminophen/Caffeine [Fioricet (50-325-40 mg) Tablet] 1 - 2 tab PO Q4H #20 tab Ibuprofen [Motrin 800 mg Tablet] 800 mg PO Q8H PRN #30 tab PRN Reason: Forms: Parent Work Note, Return to Work Referrals: JOSÉ BLANCAS MD [Primary Care Provider] - Follow up in 3-5 days
--- NOTE | 2019-03-17 17:14 | RADIOLOGY REPORT (SQ) ---
EXAM DESCRIPTION: KNEE LEFT 3 VIEWS COMPLETED DATE/TIME: 03/17/2019 4:37 pm REASON FOR STUDY: left knee pain/injury 6 days ago COMPARISON: None. NUMBER OF VIEWS: Three views. TECHNIQUE: AP, lateral, and sunrise patella radiographic images acquired of the left knee. LIMITATIONS: None. FINDINGS: MINERALIZATION: Normal. BONES: No acute fracture or dislocation. No worrisome bone lesions. JOINT: No effusion. SOFT TISSUES: No soft tissue swelling. No radio-opaque foreign body. OTHER: No other significant finding. IMPRESSION: No evidence of acute or subacute osseous injury. TECHNICAL DOCUMENTATION: JOB ID: [id number] [employer]- All Rights Reserved Reading location - IP/workstation name: [email or web address]
[2019-03-17 17:37] VITALS: BP 128/74
== END 2019-03-17 17:38 | disposition home or self-care (01) ==
LOC: ER 14:01
DX: G43.909 Migraine, unspecified, not intractable, without status migrainosus (principal); M25.562 Pain in left knee; W01.0XXA Fall on same level from slipping, tripping and stumbling without subsequent striking against object, initial encounter
CPT/HCPCS: 81025; 81001; 73562; J3490 ×2; 99283; J1885; J7030

== ENCOUNTER 2019-04-11 11:26 | Emergency (ER) | payer SELFPAY ==
[2019-04-11 11:47] VITALS: BP 120/71
[2019-04-11] MEDS ORDERED: GUAIFENESIN 600 MG TABLET.SA PO ONE (12:14)
[2019-04-11] MEDS ORDERED: PSEUDOEPHEDRINE HCL 30 MG TABLET PO ONE (12:14)
--- NOTE | 2019-04-11 12:16 | ER Document Report ---
ED Respiratory Problem - General Chief Complaint: Cold Symptoms Stated Complaint: COLD, BODY ACHES Time Seen by Provider: 04/11/19 12:05 Primary Care Provider: JOSÉ BLANCAS MD [Primary Care Provider] - Follow up in 3-5 days Mode of Arrival: Ambulatory Information source: Patient Notes: 24-year-old female presented with cough cold with runny nose body aches since . She states she has not had any fevers. 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 She does need a note to return to work. Her children are both have the same symptoms. She states she has not had any fevers. TRAVEL OUTSIDE OF THE [place] IN LAST 30 DAYS: No - HPI Patient complains to provider of: Cough Onset: Other - Tuesday he has very well has no Duration: Continuous Initiating Event: URI Quality of pain: Achy Severity: Mild Pain Level: 1 Cough: Nonproductive Associated symptoms: Congestion, Cough, PND, Runny nose, Other - Body aches Similar symptoms previously: Yes Recently seen / treated by doctor: No - Related Data Allergies/Adverse Reactions: iodine Allergy (Verified 03/19/19 14:54) Shellfish * [Shellfish] Allergy (Verified 03/19/19 14:54) swelling shellfish derived Allergy (Verified 03/19/19 14:54) strawberry Allergy (Verified 03/19/19 14:54) swelling Past Medical History - General Information source: Patient - Social History Smoking Status: Never Smoker Frequency of alcohol use: None Drug Abuse: None Occupation: Patient handler Lives with: Family Family History: Reviewed & Not Pertinent, Other - gall bladder Patient has suicidal ideation: No Patient has homicidal ideation: No - Past Medical History Cardiac Medical History: Reports: None Pulmonary Medical History: Reports: Hx Asthma EENT Medical History: Reports: None Neurological Medical History: Reports: Hx Migraine Endocrine Medical History: Reports: None Renal/ Medical History: Reports: None Malignancy Medical History: Reports: None GI Medical History: Reports: None Musculoskeletal Medical History: Reports None Skin Medical History: Reports None Psychiatric Medical History: Reports: Hx Attention Deficit Hyperactivity Disorder, Hx Bipolar Disorder, Hx Depression, Hx Post Traumatic Stress Disorder, Hx Schizophrenia Traumatic Medical History: Reports: None Infectious Medical History: Reports: None Past Surgical History: Reports: Hx Oral Surgery - Immunizations Immunizations up to date: Yes Hx Diphtheria, Pertussis, Tetanus Vaccination: Yes Review of Systems - Review of Systems Constitutional: Recent illness EENT: Nose congestion, Nose discharge, Sinus pressure, Sinus discharge Cardiovascular: No symptoms reported Respiratory: Cough Gastrointestinal: No symptoms reported Genitourinary: No symptoms reported Female Genitourinary: No symptoms reported Musculoskeletal: No symptoms reported Skin: No symptoms reported Hematologic/Lymphatic: No symptoms reported Neurological/Psychological: No symptoms reported Physical Exam - Vital signs Vitals: Temp Pulse Resp BP Pulse Ox 97.9 F 65 16 120/71 98 04/11/19 11:38 04/11/19 11:38 04/11/19 11:38 04/11/19 11:38 04/11/19 11:38 Interpretation: Normal - General General appearance: Appears well, Alert - HEENT Head: Normocephalic, Atraumatic Eyes: Normal Pupils: PERRL Ears: Normal External canal: Normal Tympanic membrane: Normal Sinus: Normal Nasal: Purulent discharge, Swelling Mouth/Lips: Normal Mucous membranes: Normal Pharynx: Post nasal drainage Neck: Normal - Respiratory Respiratory status: No respiratory distress Chest status: Nontender Breath sounds: Normal Chest palpation: Normal - Cardiovascular Rhythm: Regular Heart sounds: Normal auscultation Murmur: No - Abdominal Inspection: Normal Distension: No distension Bowel sounds: Normal Tenderness: Nontender Organomegaly: No organomegaly - Back Back: Normal, Nontender - Extremities General upper extremity: Normal inspection, Nontender, Normal color, Normal ROM, Normal temperature General lower extremity: Normal inspection, Nontender, Normal color, Normal ROM, Normal temperature, Normal weight bearing. No: Merritt's sign - Neurological Neuro grossly intact: Yes Cognition: Normal Orientation: AAOx4 Manny Coma Scale Eye Opening: Spontaneous [place] Coma Scale Verbal: Oriented [place] Coma Scale Motor: Obeys Commands Manny Coma Scale Total: 15 Speech: Normal Motor strength normal: LUE, RUE, LLE, RLE Sensory: Normal - Psychological Associated symptoms: Normal affect, Normal mood - Skin Skin Temperature: Warm Skin Moisture: Dry Skin Color: Normal Course - Re-evaluation Re-evalutation: 04/11/19 12:29 After performing a Medical Screening Examination, I estimate there is LOW risk for ACUTE CORONARY SYNDROME, RESPIRATORY FAILURE, SEPSIS OR MENINGITIS, thus I consider the discharge disposition reasonable. I have reevaluated this patient multiple times and no significant life threatening changes are noted. The patient and I have discussed the diagnosis and risks, and we agree with discharging home with close follow-up. We also discussed returning to the Emergency Department immediately if new or worsening symptoms occur. We have discussed the symptoms which are most concerning (e.g., changing or worsening pain, trouble swallowing or breathing, neck stiffness, fever) that necessitate immediate return. - Vital Signs Vital signs: Temp Pulse Resp BP Pulse Ox 97.9 F 65 16 120/71 98 04/11/19 12:06 04/11/19 11:38 04/11/19 12:06 04/11/19 11:38 04/11/19 12:06 Discharge - Discharge Clinical Impression: URI (upper respiratory infection) Qualifiers: URI type: unspecified viral URI Qualified Code(s): J06.9 - Acute upper respiratory infection, unspecified Condition: Stable Disposition: HOME, SELF-CARE Additional Instructions: UPPER RESPIRATORY ILLNESS: You have a viral infection of the respiratory passages -- a "cold." This common infection causes nasal congestion, drainage, and often sore throat and cough. It is highly contagious. The disease usually lasts about 10 to 14 days. There is no "cure" for the viral infection -- it must run its course. If there is a complication, such as bacterial infection in the nose, sinuses, middle ear, or bronchial tubes, antibiotics may be required. The antibiotics won't affect the virus. Drink plenty of fluids. A humidifier may help. An expectorant medication or decongestant may make you more comfortable. Use acetaminophen or ibuprofen for fever or aches. See the doctor if fever persists over two days, if there is any significant worsening of your symptoms, or if you simply fail to improve as expected. You were treated with Claritin 10 mg Sudafed 30 mg and you have been taken Mucinex 600 mg. These are all [id number] medications for cough cold congestion. You do need to call the go to the pharmacist to get the Sudafed from behind the counter please get a little red pills they are more effective. He could also use Flonase which is [id number]-[id number] 1 spray each nostril twice a day. He could also use salt soda solution gargles. These will help to remove the drainage from the back your throat. Chloraseptic spray was [id number]-rcy-[id number] that will also help with your sore throat. Salt and soda solution gargle 1 quart of water 1 tablespoon of salt 1 teaspoon of baking soda Mixed 3 ingredients together and boil for 1 minute Placed in a covered quart jar Use 1/2 ounce of cold solution to gargle 3 times a day COUGH-SUPPRESSANT & EXPECTORANT MEDICATION: You are to use a cough medication as needed for relief of symptoms. This medicine is a combination of an expectorant (to make the mucous thinner and more easily "coughed up") and a cough suppressant (to reduce the frequency of coughing). The cough-suppressant medicine is related to narcotics. You may experience mild nausea and sleepiness. Some patients who are very sensitive to narcotics may have stomach pain from this medicine. Taking the medicine with food reduces these side effects. Do not drive or work with machinery until you know how this medicine affects you. The expectorant should have no side effects. Iodine-containing expectorants (such as organidin) should not be taken by persons with active thyroid disease unless approved by your doctor. Call the doctor if you develop shortness of breath, hives, rash, itching, lightheadedness, or severe nausea and vomiting. USE OF ACETAMINOPHEN (Tylenol): Acetaminophen may be taken for pain relief or fever control. It's much safer than aspirin, offering a wider range of "safe" dosages. It is safe during . Some brand names are Tylenol, Panadol, Datril, Anacin 3, Tempra, and Liquiprin. Acetaminophen can be repeated every four hours. The following are maximum recommended dosages: >89 pounds or adults 650 mg to 900 mg Acetaminophen can be repeated every four hours. Maximum dose not to exceed 4000 mg a day. FOLLOW-UP CARE: If you have been referred to a physician for follow-up care, call the physicians office for an appointment as you were instructed or within the next two days. If you experience worsening or a significant change in your symptoms, notify the physician immediately or return to the Emergency Department at any time for re-evaluation. Forms: Return to Work Referrals: JOSÉ BLANCAS MD [Primary Care Provider] - Follow up in 3-5 days
== END 2019-04-11 12:40 | disposition home or self-care (01) ==
LOC: ER 11:26
DX: J06.9 Acute upper respiratory infection, unspecified (principal); M79.10 Myalgia, unspecified site; J34.89 Other specified disorders of nose and nasal sinuses; Z91.013 Allergy to seafood
CPT/HCPCS: 99283

== ENCOUNTER 2019-04-19 13:12 | Emergency (ER) | payer SELFPAY ==
[2019-04-19] MEDS ORDERED: NORMAL SALINE 1000 ML 1,000 ML IV ONE (13:32)
[2019-04-19 14:21] LABS: ABSOLUTE LYMPHOCYTES (AUTO) 0.9 10^3/uL (0.5-4.7); ABSOLUTE MONOCYTES (AUTO) 0.5 10^3/uL (0.1-1.4); ABSOLUTE NEUT (AUTO) 2.1 10^3/uL (1.7-8.2); BASOPHILS % (AUTO) 0.4 % (0-2); EOSINOPHILS % (AUTO) 0.5 % (0-6); HEMATOCRIT 36.4 % (36.0-47.0); HEMOGLOBIN 11.9 g/dL (12.0-15.5); LYMPHOCYTES % (AUTO) 26.2 % (13-45); MEAN CORPUSCULAR HEMOGLOBIN 24.9 pg (27.0-33.4); MEAN CORPUSCULAR HGB CONC 32.7 g/dL (32.0-36.0); MEAN CORPUSCULAR VOLUME 76 fl (80-97); MONOCYTES % (AUTO) 13.5 % (3-13); PLATELET COUNT 286 10^3/uL (150-450); RED BLOOD COUNT 4.78 10^6/uL (3.72-5.28); RED CELL DISTRIBUTION WIDTH 16.3 % (11.5-14.0); SEGMENTED NEUTROPHILS % (AUTO) 59.4 % (42-78); TOTAL CELLS COUNTED % (AUTO) 100 %; WHITE BLOOD COUNT 3.5 10^3/uL (4.0-10.5)
[2019-04-19 14:28] LABS: PROTHROMBIN TIME 13.2 SEC (11.4-15.4)
[2019-04-19] MEDS ORDERED: DIPHENHYDRAMINE HCL 50 MG/ML VIAL IV ONE (14:41)
[2019-04-19] MEDS ORDERED: PROCHLORPERAZINE EDISYLATE INJ 10 MG/2 ML VIAL IV ONE (14:41)
[2019-04-19 14:43] LABS: ALBUMIN 3.9 g/dL (3.5-5.0); ALKALINE PHOSPHATASE 75 U/L (38-126); ANION GAP 10 (5-19); ASPARTATE AMINO TRANSFERASE 19 U/L (14-36); BILIRUBIN,DIRECT 0.1 mg/dL (0.0-0.4); BILIRUBIN,TOTAL 0.3 mg/dL (0.2-1.3); BLOOD UREA NITROGEN 11 mg/dL (7-20); CALCIUM 9.5 mg/dL (8.4-10.2); CARBON DIOXIDE 31 mmol/L (22-30); CHLORIDE 102 mmol/L (98-107); GLUCOSE 89 mg/dL (75-110); TOTAL PROTEIN 7.3 g/dL (6.3-8.2)
[2019-04-19 14:45] LABS: ACETAMINOPHEN < 10 ug/mL (10-30); ALCOHOL < 10 mg/dL (NONE DETECTED); SALICYLATE < 1.0 mg/dL (2.0-20.0)
[2019-04-19 14:47] LABS: APPEARANCE,URINE SLIGHTLY-CLOUDY; BILIRUBIN,URINE NEGATIVE (NEGATIVE); COLOR,URINE YELLOW; GLUCOSE, URINE NEGATIVE (NEGATIVE); KETONES,URINE NEGATIVE (NEGATIVE); LEUKOCYTE ESTERASE,URINE MODERATE (NEGATIVE); NITRITE,URINE NEGATIVE (NEGATIVE); PROTEIN,URINE 30 mg/dL (NEGATIVE); URINE SPECIFIC GRAVITY 1.024; UROBILINOGEN,URINE NEGATIVE mg/dL (<2.0)
--- NOTE | 2019-04-19 14:49 | RADIOLOGY REPORT (SQ) ---
EXAM DESCRIPTION: CT HEAD WITHOUT COMPLETED DATE/TIME: 04/19/2019 2:31 pm REASON FOR STUDY: fall, head injury COMPARISON: 12/10/2016 TECHNIQUE: Axial images acquired through the brain without intravenous contrast. Images reviewed wi th bone, brain and subdural windows. Additional sagittal and coronal reconstructions were generated. Images stored on PACS. All CT scanners at this facility use dose modulation, iterative reconstruction, and/or weight based d osing when appropriate to reduce radiation dose to as low as reasonably achievable (ALARA). [facility]: Dose Right [facility]: CareDose [facility]: Dose Right [facility]: Teradose 4D [facility]: Smart [employer] RADIATION DOSE: CT Rad equipment meets quality standard of care and radiation dose reduction techniq ues were employed. CTDIvol: 53.2 mGy. DLP: 1017 mGy-cm. mGy. LIMITATIONS: None. FINDINGS: VENTRICLES: Normal size and contour. CEREBRUM: No masses. No hemorrhage. No midline shift. No evidence for acute infarction. Normal gra y/white matter differentiation. No areas of low density in the white matter. CEREBELLUM: No masses. No hemorrhage. No alteration of density. No evidence for acute infarction. EXTRAAXIAL SPACES: No fluid collections. No masses. ORBITS AND GLOBE: No intra- or extraconal masses. Normal contour of globe without masses. CALVARIUM: No fracture. PARANASAL SINUSES: Mucosal thickening of the right frontal sinus, ethmoid air cells, and sphenoid sin uses. SOFT TISSUES: No mass or hematoma. OTHER: No other significant finding. IMPRESSION: 1. No acute intracranial pathology. 2. Paranasal sinus disease. EVIDENCE OF ACUTE STROKE: NO. COMMENT: Quality ID # [id number]: Final reports with documentation of one or more dose reduction techniques (e.g., Automated exposure control, adjustment of the mA and/or kV according to patient size, use of iterative reconstruction technique) TECHNICAL DOCUMENTATION: JOB ID: [id number] [employer]- All Rights Reserved Reading location - IP/workstation name: [email or web address]
--- NOTE | 2019-04-19 14:52 | RADIOLOGY REPORT (SQ) ---
EXAM DESCRIPTION: CHEST 2 VIEWS COMPLETED DATE/TIME: 04/19/2019 2:18 pm REASON FOR STUDY: cough COMPARISON: 11/24/2018 EXAM PARAMETERS: NUMBER OF VIEWS: two views TECHNIQUE: Digital Frontal and Lateral radiographic views of the chest acquired. RADIATION DOSE: NA LIMITATIONS: none FINDINGS: LUNGS AND PLEURA: No opacities, masses or pneumothorax. No pleural effusion. MEDIASTINUM AND HILAR STRUCTURES: No masses or contour abnormalities. HEART AND VASCULAR STRUCTURES: Heart normal size. No evidence for failure. BONES: No acute findings. HARDWARE: None in the chest. OTHER: No other significant finding. IMPRESSION: NO ACUTE RADIOGRAPHIC FINDING IN THE CHEST. TECHNICAL DOCUMENTATION: JOB ID: [id number] [employer] All Rights Reserved Reading location - IP/workstation name: [email or web address]
[2019-04-19 15:09] LABS: URINE AMPHETAMINES SCREEN NEGATIVE; URINE BARBITURATES SCREEN NEGATIVE; URINE BENZODIAZEPINES SCREEN NEGATIVE; URINE COCAINE SCREEN NEGATIVE; URINE MARIJUANA (THC) SCREEN NEGATIVE; URINE METHADONE SCREEN NEGATIVE; URINE PHENCYCLIDINE SCREEN NEGATIVE
[2019-04-19 15:31] LABS: VENOUS BLOOD BASE EXCESS 2.4 mmol/L; VENOUS BLOOD PCO2 59.7 mmHg (35-63); VENOUS BLOOD PH 7.32 (7.30-7.42)
[2019-04-19] MEDS ORDERED: ACETAMINOPHEN 325 MG TABLET PO ONE (15:57)
[2019-04-19] MEDS ORDERED: ONDANSETRON 4 MG TAB.RAPDIS PO ONE (15:57)
[2019-04-19] MEDS ORDERED: MECLIZINE HCL 12.5 MG TABLET PO ONE (16:01)
--- NOTE | 2019-04-19 17:23 | ER Document Report ---
Entered by MARAH SANDERS SCRIBE 04/19/19 0650 Acting as scribe for:KHLOE VICTOR DO ED Psych Disorder / Suicide - General Stated Complaint: PSYCH Time Seen by Provider: 04/19/19 13:19 Primary Care Provider: JOSÉ BLANCAS MD [Primary Care Provider] - Follow up as needed Mode of Arrival: Ambulatory Information source: Patient Notes: This 24 year old female patient presents to the emergency department today with complaints of a headache, nasal congestion, and "feeling tired". Patient states that she "does not know what happened" prior to arrival. Patient states "the last thing she remembers was walking back to her bedroom from the bathroom". Patient states she remembers feeling cold, so she was attempting to turn up the heat on the thermostat when she "began shaking, collapse". EMS states when they arrived the patient was lying supine on the floor stating that she "just wanted to sleep". Patient is adamant that she is not and was not suicidal. Patient mentions that she has had a cold for 2 weeks, dysuria, and intermittent shortness of breath as well. Patient denies homicidal ideation, suicidal ideation, or fevers. TRAVEL OUTSIDE OF THE [place] IN LAST 30 DAYS: No - Related Data Allergies/Adverse Reactions: iodine Allergy (Verified 04/19/19 14:28) Shellfish * [Shellfish] Allergy (Verified 04/19/19 14:28) swelling shellfish derived Allergy (Verified 04/19/19 14:28) strawberry Allergy (Verified 04/19/19 14:28) swelling Past Medical History - General Information source: Patient - Social History Smoking Status: Never Smoker Cigarette use (# per day): No Frequency of alcohol use: None Drug Abuse: None Family History: Reviewed & Not Pertinent, Other - gall bladder Pulmonary Medical History: Reports: Hx Asthma Neurological Medical History: Reports: Hx Migraine Psychiatric Medical History: Reports: Hx Attention Deficit Hyperactivity Disorder, Hx Bipolar Disorder, Hx Depression, Hx Post Traumatic Stress Disorder, Hx Schizophrenia Past Surgical History: Reports: Hx Oral Surgery - Immunizations Immunizations up to date: Yes Hx Diphtheria, Pertussis, Tetanus Vaccination: Yes Review of Systems - Review of Systems Constitutional: denies: Fever EENT: See HPI, Nose discharge Cardiovascular: See HPI, Dizziness Respiratory: See HPI, Short of breath Gastrointestinal: No symptoms reported Genitourinary: See HPI, Dysuria Female Genitourinary: No symptoms reported Musculoskeletal: No symptoms reported Skin: No symptoms reported Hematologic/Lymphatic: No symptoms reported Neurological/Psychological: See HPI, Headaches -: Yes All other systems reviewed and negative Physical Exam - Vital signs Vitals: Temp Pulse Resp BP Pulse Ox 97.8 F 72 18 124/68 99 04/19/19 13:13 04/19/19 13:13 04/19/19 13:13 04/19/19 13:13 04/19/19 13:13 Interpretation: Normal - General General appearance: Alert In distress: None - Appears uncomfortable - HEENT Head: Normocephalic, Atraumatic Eyes: Normal Pupils: PERRL - Respiratory Respiratory status: No respiratory distress Chest status: Nontender Breath sounds: Normal Chest palpation: Normal - Cardiovascular Rhythm: Regular Heart sounds: Normal auscultation Murmur: No - Abdominal Inspection: Normal Distension: No distension Bowel sounds: Normal Tenderness: Nontender Organomegaly: No organomegaly - Back Back: Normal, Nontender - Extremities General upper extremity: Normal inspection, Nontender, Normal color, Normal ROM, Normal temperature General lower extremity: Normal inspection, Nontender, Normal color, Normal ROM, Normal temperature, Normal weight bearing. No: Merritt's sign - Neurological Neuro grossly intact: Yes Cognition: Normal Orientation: AAOx4 Palmer Coma Scale Eye Opening: Spontaneous Palmer Coma Scale Verbal: Oriented Palmer Coma Scale Motor: Obeys Commands Palmer Coma Scale Total: 15 Speech: Normal Motor strength normal: LUE, RUE, LLE, RLE Sensory: Normal - Psychological Associated symptoms: Normal affect, Normal mood - Skin Skin Temperature: Warm Skin Moisture: Dry Skin Color: Normal Course - Re-evaluation Re-evalutation: 04/19/19 17:21 Patient is a 24-year-old female that was brought in after she apparently felt dizzy and then fell on the floor. There was some confusion because the patient stated that she is just wanted to sleep but she has no suicidal or homicidal ideation. She apparently felt very sleepy after hitting her head. CT head within normal limits. No neck or back pain. No difficulty with moving extremities. She is neurovascularly intact. Chest x-ray is clear. Blood work is benign. Patient feels better after medications for headache and vertigo. She would like to be discharged home. Again no suicidal or homicidal ideation. No further psychiatric concerns at this time. Stable for discharge. - Vital Signs Vital signs: Temp Pulse Resp BP Pulse Ox 97.8 F 72 18 119/76 100 04/19/19 14:25 04/19/19 14:25 04/19/19 13:13 04/19/19 14:25 04/19/19 14:25 - Laboratory Result Diagrams: 04/19/19 13:55 04/19/19 13:55 Laboratory results interpreted by me: 04/19/19 04/19/19 04/19/19 13:55 13:55 13:55 WBC 3.5 L Hgb 11.9 L MCV 76 L MCH 24.9 L RDW 16.3 H [place] % (Auto) 13.5 H Carbon Dioxide 31 H Urine Protein 30 H Ur Leukocyte Esterase MODERATE H Leukocyte Esterase Rfl MODERATE H Salicylates < 1.0 L Acetaminophen < 10 L Discharge - Discharge Clinical Impression: Vertigo Condition: Stable Disposition: HOME, SELF-CARE Instructions: Vertigo ([facility]) Prescriptions: Meclizine HCl [Antivert 12.5 mg Tablet] 12.5 mg PO TID #30 tablet Referrals: JOSÉ BLANCAS MD [Primary Care Provider] - Follow up tomorrow I personally performed the services described in the documentation, reviewed and edited the documentation which was dictated to the scribe in my presence, and it accurately records my words and actions.
[2019-04-19 17:53] VITALS: BP 118/70
== END 2019-04-19 17:50 | disposition home or self-care (01) ==
LOC: ER 13:12
DX: R42 Dizziness and giddiness (principal); F29 Unspecified psychosis not due to a substance or known physiological condition; R51 Headache; R06.02 Shortness of breath; R09.81 Nasal congestion; Z91.013 Allergy to seafood
CPT/HCPCS: 99284; 96360; 36415; 87040; 87086; 80307 ×4; 84703; 85025; 85610; 80053; 81001; 82803; 83605; 71046; 70450; S0119; J3490; J7030

== ENCOUNTER 2019-04-28 02:03 | Emergency (ER) | payer SELFPAY ==
[2019-04-28] MEDS ORDERED: ACETAMINOPHEN 325 MG TABLET PO ONE (07:57)
[2019-04-28 08:29] VITALS: BP 104/75
== END 2019-04-28 08:25 | disposition left against medical advice (07) ==
LOC: ER 02:03
DX: Z53.21 Procedure and treatment not carried out due to patient leaving prior to being seen by health care provider (principal)

== ENCOUNTER 2019-05-27 19:40 | Emergency (ER) | payer SELFPAY ==
[2019-05-27] MEDS ORDERED: DEXAMETHASONE CONC 1 MG/ML SOLN PO ONE (20:54)
[2019-05-27] MEDS ORDERED: KETOROLAC TROMETHAMINE 60 MG/2 ML SDV IM ONE (20:54)
--- NOTE | 2019-05-27 20:56 | ER Document Report ---
ED Flu Like - General Chief Complaint: Flu Symptoms Stated Complaint: CHEST CONGESTION/BODY ACHE Time Seen by Provider: 05/27/19 20:43 Primary Care Provider: JOSÉ BLANCAS MD [Primary Care Provider] - Follow up in 3-5 days TRAVEL OUTSIDE OF THE [place] IN LAST 30 DAYS: Yes - HPI Notes: 24-year-old female to the emergency department with 2 days of fever, cough, congestion, body aches, sore throat. She states that her child was tested positive for the flu last week. She is also concerned that she might have strep throat. She states that the cough is productive of greenish phlegm. She states that she has been taking Motrin at home but has not had a lot of relief. She states that she is going coughing so much that she has not been able to sleep. She denies any nausea, vomiting, diarrhea, abdominal pain. - Related Data Allergies/Adverse Reactions: iodine Allergy (Verified 04/28/19 02:25) Shellfish * [Shellfish] Allergy (Verified 04/28/19 02:25) swelling shellfish derived Allergy (Verified 04/28/19 02:25) strawberry Allergy (Verified 04/28/19 02:25) swelling Past Medical History - Social History Smoking Status: Current Every Day Smoker Family History: Reviewed & Not Pertinent, Other - gall bladder Patient has suicidal ideation: No Patient has homicidal ideation: No Pulmonary Medical History: Reports: Hx Asthma Neurological Medical History: Reports: Hx Migraine Renal/ Medical History: Denies: Hx Peritoneal Dialysis Psychiatric Medical History: Reports: Hx Attention Deficit Hyperactivity Disorder, Hx Bipolar Disorder, Hx Depression, Hx Post Traumatic Stress Disorder, Hx Schizophrenia Past Surgical History: Reports: Hx Oral Surgery - Immunizations Immunizations up to date: Yes Hx Diphtheria, Pertussis, Tetanus Vaccination: Yes Review of Systems - Review of Systems Constitutional: Chills, Fever, Malaise EENT: Nose congestion, Nose discharge, Throat pain Cardiovascular: denies: Chest pain, Palpitations, Heart racing, Orthopnea, Dizziness, Lightheaded, Edema Respiratory: Cough, Hurts to breathe Gastrointestinal: Nausea. denies: Abdominal pain, Diarrhea Genitourinary: No symptoms reported Musculoskeletal: Muscle pain - Body aches Skin: No symptoms reported Neurological/Psychological: No symptoms reported -: Yes All other systems reviewed and negative Physical Exam - Vital signs Vitals: Temp Pulse Resp BP Pulse Ox 98.6 F 87 20 121/73 100 05/27/19 19:48 05/27/19 19:48 05/27/19 19:48 05/27/19 19:48 05/27/19 19:48 Interpretation: Normal - General General appearance: Appears well, Alert In distress: None - HEENT Head: Normocephalic, Atraumatic Eyes: Normal Pupils: PERRL Ears: Normal External canal: Normal Tympanic membrane: Normal. No: Hemotympanum, Injected, Perforation, Purulent effusion Sinus: Normal Nasal: Clear rhinorrhea, Other - Nasal congestion Mouth/Lips: Normal. No: Angioedema Pharynx: Erythema, Post nasal drainage. No: Peritonsillar abscess, Retropharyngeal abscess, Tonsillar hypertrophy, Uvular edema, Potential airway comprom. Neck: Normal, Supple. No: Lymphadenopathy, Meningismus - Respiratory Respiratory status: No respiratory distress Chest status: Nontender Breath sounds: Decreased air movement, Nonproductive cough. No: Productive cough, Rales, Rhonchi, Stridor, Wheezing Chest palpation: Normal - Cardiovascular Rhythm: Regular Heart sounds: Normal auscultation Murmur: No - Abdominal Inspection: Normal Distension: No distension Bowel sounds: Normal Tenderness: Nontender Organomegaly: No organomegaly - Back Back: Normal, Nontender. No: CVA tenderness - Neurological Neuro grossly intact: Yes Cognition: Normal Orientation: AAOx4 Manny Coma Scale Eye Opening: Spontaneous [place] Coma Scale Verbal: Oriented Manny Coma Scale Motor: Obeys Commands [place] Coma Scale Total: 15 Speech: Normal Cranial nerves: Normal. No: Facial palsy Cerebellar coordination: Normal Motor strength normal: LUE, RUE, LLE, RLE Additional motor exam normals: Equal personal computer network analyst. No: Pronator drift Sensory: Normal - Psychological Associated symptoms: Normal affect, Normal mood - Skin Skin Temperature: Warm Skin Moisture: Dry Skin Color: Normal Course - Re-evaluation Re-evalutation: Impression: Influenza. Negative for strep and for pneumonia on chest x-ray. Patient has a positive flu contact. Offered Tamiflu and gave side effect profile. Patient declined Tamiflu. Will discharge with symptomatic relief. Encouraged to push fluids and rest. Return if any worsening symptoms. Patient agrees with plan. - Vital Signs Vital signs: Temp Pulse Resp BP Pulse Ox 98.1 F 91 16 137/85 H 100 05/27/19 22:06 05/27/19 22:06 05/27/19 22:06 05/27/19 22:06 05/27/19 22:06 - Diagnostic Test Radiology reviewed: Image reviewed, Reports reviewed Discharge - Discharge Clinical Impression: Influenza, Flu-like symptoms Condition: Stable Disposition: HOME, SELF-CARE Instructions: Influenza ([facility]) Additional Instructions: FOLLOW UP WITH PRIMARY CARE. RETURN IF WORSE. PUSH FLUIDS. TAKE MEDICINES PRESCRIBED. Prescriptions: Albuterol Sulfate [Albuterol Sulfate Hfa] 2 puff IH Q4H #1 hfa.aer.ad Etodolac 200 mg PO BID #20 capsule Promethazine HCl/Codeine [Prometh-Codein 6.25-10 mg/5 ml] 5 ml PO Q6H PRN #120 ml PRN Reason: Forms: Return to Work Referrals: JOSÉ BLANCAS MD [Primary Care Provider] - Follow up in 3-5 days
--- NOTE | 2019-05-27 22:07 | RADIOLOGY REPORT (SQ) ---
EXAM DESCRIPTION: Two views of the chest CLINICAL HISTORY: 24 years Female, productive cough COMPARISON: Radiographs of the chest 04/19/2019 FINDINGS: Lungs: Lungs are clear. No pneumonia or edema. No pneumothorax or pleural effusion. Mediastinum: Cardiac and mediastinal silhouette are normal. Bones: Osseous structures are normal. IMPRESSION: No acute process. No significant interval change.
[2019-05-27 22:11] VITALS: BP 137/85
== END 2019-05-27 22:09 | disposition home or self-care (01) ==
LOC: ER 19:40
DX: J11.1 Influenza due to unidentified influenza virus with other respiratory manifestations (principal); R50.9 Fever, unspecified; R05 Cough; R53.81 Other malaise; R09.81 Nasal congestion; R07.1 Chest pain on breathing; J34.89 Other specified disorders of nose and nasal sinuses; R11.0 Nausea; M79.10 Myalgia, unspecified site; R09.82 Postnasal drip; F17.200 Nicotine dependence, unspecified, uncomplicated; Z91.013 Allergy to seafood; Z91.018 Allergy to other foods
CPT/HCPCS: 99283; 96374; 87070; 87880; 87077; 71046; J1885; J8540

== ENCOUNTER 2019-06-19 13:06 | Emergency (ER) | payer SELFPAY ==
[2019-06-19 13:42] VITALS: BP 134/78
[2019-06-19 14:44] LABS: APPEARANCE,URINE CLOUDY; BILIRUBIN,URINE NEGATIVE (NEGATIVE); COLOR,URINE YELLOW; GLUCOSE, URINE NEGATIVE (NEGATIVE); KETONES,URINE NEGATIVE (NEGATIVE); LEUKOCYTE ESTERASE,URINE MODERATE (NEGATIVE); NITRITE,URINE NEGATIVE (NEGATIVE); PROTEIN,URINE NEGATIVE (NEGATIVE)
[2019-06-19 14:49] LABS: ABSOLUTE LYMPHOCYTES (AUTO) 1.2 10^3/uL (0.5-4.7); ABSOLUTE MONOCYTES (AUTO) 0.6 10^3/uL (0.1-1.4); ABSOLUTE NEUT (AUTO) 3.4 10^3/uL (1.7-8.2); BASOPHILS % (AUTO) 0.4 % (0-2); EOSINOPHILS % (AUTO) 0.4 % (0-6); HEMATOCRIT 36.4 % (36.0-47.0); HEMOGLOBIN 12.3 g/dL (12.0-15.5); LYMPHOCYTES % (AUTO) 23.3 % (13-45); MEAN CORPUSCULAR HEMOGLOBIN 25.2 pg (27.0-33.4); MEAN CORPUSCULAR HGB CONC 33.8 g/dL (32.0-36.0); MEAN CORPUSCULAR VOLUME 74 fl (80-97); MONOCYTES % (AUTO) 10.9 % (3-13); PLATELET COUNT 341 10^3/uL (150-450); RED BLOOD COUNT 4.89 10^6/uL (3.72-5.28); RED CELL DISTRIBUTION WIDTH 16.2 % (11.5-14.0); TOTAL CELLS COUNTED % (AUTO) 100 %; WHITE BLOOD COUNT 5.2 10^3/uL (4.0-10.5)
[2019-06-19 14:55] LABS: ALBUMIN 3.9 g/dL (3.5-5.0); ALKALINE PHOSPHATASE 78 U/L (38-126); ANION GAP 8 (5-19); ASPARTATE AMINO TRANSFERASE 20 U/L (14-36); BILIRUBIN,DIRECT 0.2 mg/dL (0.0-0.4); BILIRUBIN,TOTAL 0.3 mg/dL (0.2-1.3); BLOOD UREA NITROGEN 10 mg/dL (7-20); CALCIUM 9.2 mg/dL (8.4-10.2); CARBON DIOXIDE 31 mmol/L (22-30); CHLORIDE 102 mmol/L (98-107); GLUCOSE 109 mg/dL (75-110); POTASSIUM 3.9 mmol/L (3.6-5.0); TOTAL PROTEIN 7.5 g/dL (6.3-8.2)
[2019-06-19] MEDS ORDERED: ACETAMINOPHEN 325 MG TABLET PO ONE (15:03)
--- NOTE | 2019-06-19 15:09 | ER Document Report ---
ED GI/ - General Chief Complaint: Abdominal Pain Stated Complaint: ABDOMINAL CRAMPING Time Seen by Provider: 06/19/19 14:46 Primary Care Provider: [facility] [Provider Group] - Follow up as needed [facility] [Provider Group] - Follow up as needed Notes: Patient is a 24-year-old female G4, P3. Who presents to the emergency department with a chief complaint of abdominal pain, cramping, and vaginal bleeding. Patient states that her last menstrual cycle was in April and states that about 2 months ago she ended up having some vaginal bleeding. About 4 weeks ago she ended up having a large amount of clots. For the past few days, her cramping has gotten worse. She stopped bleeding about 4 days ago. Patient states that she has history of bleeding during . She has history of hypertension and borderline diabetes during . TRAVEL OUTSIDE OF THE [place] IN LAST 30 DAYS: No - Related Data Allergies/Adverse Reactions: iodine Allergy (Verified 04/28/19 02:25) Shellfish * [Shellfish] Allergy (Verified 04/28/19 02:25) swelling shellfish derived Allergy (Verified 04/28/19 02:25) strawberry Allergy (Verified 04/28/19 02:25) swelling Past Medical History - Social History Smoking Status: Unknown if Ever Smoked Family History: Reviewed & Not Pertinent, Other - gall bladder Patient has suicidal ideation: No Patient has homicidal ideation: No Pulmonary Medical History: Reports: Hx Asthma Neurological Medical History: Reports: Hx Migraine Renal/ Medical History: Denies: Hx Peritoneal Dialysis Psychiatric Medical History: Reports: Hx Attention Deficit Hyperactivity Disorder, Hx Bipolar Disorder, Hx Depression, Hx Post Traumatic Stress Disorder, Hx Schizophrenia Past Surgical History: Reports: Hx Oral Surgery - Immunizations Immunizations up to date: Yes Hx Diphtheria, Pertussis, Tetanus Vaccination: Yes Review of Systems - Review of Systems Notes: REVIEW OF SYSTEMS: CONSTITUTIONAL : Denies recent illness. Denies recent unintentional weight loss. Denies fever, chills, or sweats. EENT: Denies eye, ear, throat, or mouth pain, discharge, or symptoms. Denies nasal or sinus congestion. CARDIOVASCULAR: Denies chest pain. RESPIRATORY: Denies shortness of breath, cough, congestion, difficulty breathing, or wheezing. GASTROINTESTINAL: See HPI. GENITOURINARY: Denies difficulty urinating, burning, blood in urine, urgency or frequency. FEMALE GENITOURINARY: See HPI. MUSCULOSKELETAL: Denies neck and back pain. Denies joint pain or swelling. SKIN: Denies rash, itchiness, or lesions HEMATOLOGIC : Denies easy bruising or bleeding. LYMPHATIC: Denies swollen, painful, enlarged glands. NEUROLOGICAL: Denies no numbness or tingling denies weakness. Denies headache. Denies altered mental status. Denies alteration in speech. PSYCHIATRIC: Denies stress, anxiety, alteration in sleep patterns, or depression. All other systems reviewed and negative. Physical Exam - Vital signs Vitals: Temp Pulse Resp BP Pulse Ox 98.5 F 80 18 134/78 H 98 06/19/19 13:41 06/19/19 13:41 06/19/19 13:41 06/19/19 13:41 06/19/19 13:41 - Notes Notes: PHYSICAL EXAMINATION: GENERAL: Appears well, healthy, well-nourished, no acute distress. HEAD: Normocephalic, atraumatic. EYES: PERRL, conjunctiva normal, all extraocular movements intact, sclera no nicteric ENT: Moist mucous membranes. NECK: Supple, no noticeable swelling, redness, rash. Normal range of motion. LUNGS: Equal breath sounds bilaterally and clear to auscultation. No wheezes r ales or rhonchi. CARDIOVASCULAR: S1-S2, regular rate, regular rhythm. Radial pulses 2+, normal. ABDOMEN: Normoactive bowel sounds. Soft, tender mid lower abdomen, no guarding, no rebound tenderness, and no masses palpated. EXTREMITIES: Normal strength and range of motion, no pitting or edema. No cyanosis. NEUROLOGICAL: Moves all extremities upon command. Strength 5/5 in all extremities. PSYCH: Normal mood, normal affect. SKIN: Warm, dry. No rash, lesions, ulcerations noted. Normal skin turgor. DIRECTOR INPATIENT HEADACHE PROGRAM: Moderate amount of yellow/clear discharge noted. Patient refused full pelvic exam. Course - Re-evaluation Re-evalutation: 06/19/19 15:51 Gianna, TABLE GAMES MANAGER at bedside for pelvic exam. Patient refused pelvic exam with s peculum, but I recommended that she get the wet mount done. She was in agreement with that plan. Patient had a small amount of clear/white discharge noted. I am going to was up hematology is unremarkable with no leukocytosis noted. Chemistries are unremarkable. Her beta hCG is negative urinalysis shows a moderate amount of leukocytes in her urine. - Vital Signs Vital signs: Temp Pulse Resp BP Pulse Ox 98.5 F 80 18 134/78 H 98 06/19/19 13:41 06/19/19 13:41 06/19/19 13:41 06/19/19 13:41 06/19/19 13:41 - Laboratory Result Diagrams: 06/19/19 14:10 06/19/19 14:10 Laboratory results interpreted by me: 06/19/19 06/19/19 06/19/19 14:10 14:10 14:10 MCV 74 L MCH 25.2 L RDW 16.2 H Carbon Dioxide 31 H Urine Urobilinogen 2.0 H Ur Leukocyte Esterase MODERATE H Urine Ascorbic Acid 40 H Chlamydia DNA (PCR) 06/19/19 15:45 MCV MCH RDW Carbon Dioxide Urine Urobilinogen Ur Leukocyte Esterase Urine Ascorbic Acid Chlamydia DNA (PCR) DETECTED H Discharge - Discharge Clinical Impression: Miscarriage, Vaginal bleeding, Vaginal discharge, Bacterial vaginosis Condition: Stable Disposition: HOME, SELF-CARE Additional Instructions: You have an overgrowth of natural vaginal bacteria, called bacterial vaginosis. You are being treated with an antibiotic called metronidazole. Do not drink alcohol while taking this medication. Complete all of the antibiotic even if your symptoms have resolved. Return for abdominal pain, vomiting, fever of greater than 101F, or any other symptoms that are worrisome to you. Please follow-up with your PHOTOGRAPHY PROFESSOR or primary care doctor as needed. Your urine shows findings consistent with a urinary tract infection. Please take all the antibiotics as directed even if your symptoms have improved. Ple ase follow-up with your primary care physician as needed. Return to emergency room if you develop fever >101F, persistent vomiting, become lethargic, have severe pain in your sides, or any other symptoms that are concerning to you. Your ultrasounds were normal. If you continue to have problems with your gallbladder pain, please follow-up with the surgeon. Prescriptions: Doxycycline Hyclate 100 mg PO BID #28 tablet. Metronidazole [Flagyl 500 mg Tablet] 500 mg PO Q6H #28 tablet Referrals: [facility] [Provider Group] - Follow up as needed [facility] [Provider Group] - Follow up as needed
[2019-06-19 16:08] LABS: BACTERIA (WET MOUNT) 4+ BACTERIA SEEN; EPITHELIALS (WET MOUNT) 3+ EPITHELIALS SEEN; T.VAGINALIS (WET MOUNT) NO TRICHOMONAS SEEN; WBCS (WET MOUNT) 2+ WBCS SEEN; YEAST (WET MOUNT) NO YEAST SEEN
--- NOTE | 2019-06-19 17:12 | RADIOLOGY REPORT (SQ) ---
EXAM DESCRIPTION: U/S ABDOMEN LIMITED W/O DOP COMPLETED DATE/TIME: 06/19/2019 4:56 pm REASON FOR STUDY: RUQ abdominal pain COMPARISON: None. TECHNIQUE: Dynamic and static grayscale images acquired of the abdomen and recorded on PACS. Additio nal selected color Doppler and spectral images recorded. LIMITATIONS: None. FINDINGS: PANCREAS: No masses. Visualized pancreatic duct normal caliber. LIVER: No masses. Echotexture normal. LIVER VASCULATURE: Normal directional flow of the main portal vein and hepatic veins. GALLBLADDER: No stones. Normal wall thickness. No pericholecystic fluid. ULTRASOUND-DETECTED BROWN'S SIGN: Negative. INTRAHEPATIC DUCTS AND COMMON DUCT: CBD and intrahepatic ducts normal caliber. No filling defects. AORTA: No aneurysm. RIGHT KIDNEY: Normal size, 10.1 cm. Normal echogenicity. No solid or suspicious masses. No hydroneph rosis. No calcifications. PERITONEAL AND RIGHT PLEURAL SPACE: No ascites or effusions. OTHER: No other significant findings. IMPRESSION: NORMAL RIGHT UPPER QUADRANT ULTRASOUND. TECHNICAL DOCUMENTATION: JOB ID: [id number] 2010 [employer]- All Rights Reserved Reading location - IP/workstation name: [email or web address]
--- NOTE | 2019-06-19 17:13 | RADIOLOGY REPORT (SQ) ---
EXAM DESCRIPTION: U/S NON OB PEL W/DOPPLER COMPLETED DATE/TIME: 06/19/2019 5:03 pm REASON FOR STUDY: vaginal bleeding; abdominal pain COMPARISON: 04/15/2018 TECHNIQUE: Dynamic and static grayscale images acquired of the pelvis via transabdominal approach an d recorded on PACS. Additional selected color Doppler and spectral images recorded. LIMITATIONS: None. FINDINGS: UTERUS: Normal in size and contour measuring 7.7 x 6.2 x 4.9 cm. ENDOMETRIAL STRIPE: No focal thickening. Endometrial stripe measures 9 mm. CERVIX: No nabothian cysts. RIGHT OVARY AND DOPPLER: Normal size measuring 2.9 x 1.6 x 2.1 cm. No worrisome masses. Normal arteri al vascular flow without evidence for torsion. LEFT OVARY AND DOPPLER: Normal size measuring 3.8 x 1.9 x 1.8 cm. No worrisome masses. Normal arteria l vascular flow without evidence for torsion. FREE FLUID: None noted. OTHER: No other significant finding. IMPRESSION: NORMAL PELVIC ULTRASOUND BY TRANSABDOMINAL TECHNIQUE. TECHNICAL DOCUMENTATION: JOB ID: [id number] 2010 [employer]- All Rights Reserved Rev-09/16 Reading location - IP/workstation name: [email or web address]
[2019-06-19] MEDS ORDERED: CEFTRIAXONE INJ 1000 MG VIAL IM ONE (17:32)
[2019-06-19] MEDS ORDERED: LIDOCAINE 1% INJ-PF (10 MG/ML) 30 ML SDV INJ ONE (17:32)
[2019-06-19 17:36] LABS: CHLAM PCR DETECTED (NOT DETECT)
== END 2019-06-19 17:50 | disposition home or self-care (01) ==
LOC: ER 13:06
DX: O03.9 Complete or unspecified spontaneous abortion without complication (principal); O23.591 Infection of other part of genital tract in pregnancy, first trimester; R10.9 Unspecified abdominal pain; Z3A.00 Weeks of gestation of pregnancy not specified
CPT/HCPCS: 36415; 87210; 84702; 83690; 85025; 81025; 80053; 81001; 87491; 87591; 76856; 76705; 93976; J3490; J0696; 87086

== ENCOUNTER 2019-07-19 07:44 | Emergency (ER) | payer SELFPAY ==
[2019-07-19 07:48] VITALS: BP 122/84
[2019-07-19] MEDS ORDERED: HYDROCODONE/ACETAMINOPHEN 5-325 MG TABLET PO ONE (08:28)
[2019-07-19] MEDS ORDERED: IBUPROFEN 600 MG TABLET PO ONE (08:28)
[2019-07-19] MEDS ORDERED: ACETAMINOPHEN 325 MG TABLET PO ONE (08:28)
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
--- NOTE | 2019-07-19 09:09 | RADIOLOGY REPORT (SQ) ---
EXAM DESCRIPTION: HAND RIGHT 3 VIEWS COMPLETED DATE/TIME: 07/19/2019 8:41 am REASON FOR STUDY: Pain and Swelling to Extremity COMPARISON: None. EXAM PARAMETERS: NUMBER OF VIEWS: Three views. TECHNIQUE: AP, lateral and oblique radiographic images acquired of the right hand. LIMITATIONS: None. FINDINGS: MINERALIZATION: Normal. BONES: No acute fracture or dislocation. No worrisome bone lesions. JOINTS: No effusions. SOFT TISSUES: No soft tissue swelling. No foreign body. OTHER: No other significant finding. IMPRESSION: NEGATIVE STUDY OF THE RIGHT HAND. NO RADIOGRAPHIC EVIDENCE OF ACUTE INJURY. TECHNICAL DOCUMENTATION: JOB ID: [id number] 2010 [employer]- All Rights Reserved Reading location - IP/workstation name: [email or web address]
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
== END 2019-07-19 10:12 | disposition home or self-care (01) ==
LOC: ER 07:44
DX: M79.641 Pain in right hand (principal); M25.431 Effusion, right wrist; M54.9 Dorsalgia, unspecified; Y04.0XXA Assault by unarmed brawl or fight, initial encounter; J45.909 Unspecified asthma, uncomplicated
CPT/HCPCS: 99283

== ENCOUNTER 2020-05-09 15:13 | Emergency (ER) | payer SELFPAY ==
[2020-05-09] MEDS ORDERED: ACETAMINOPHEN 325 MG TABLET PO ONE (16:32)
[2020-05-09] MEDS ORDERED: ONDANSETRON 4 MG TAB.RAPDIS PO ONE (16:32)
--- NOTE | 2020-05-09 16:36 | ER Document Report ---
ED Medical Screen (RME) - General Chief Complaint: Abdominal Pain Stated Complaint: TOOTHACHE Time Seen by Provider: 05/09/20 16:28 Mode of Arrival: Ambulatory Information source: Patient Notes: HPI; 25-year-old female presents to the emergency room complaining of generalized cramping abdominal pain for the past 2 weeks. Nausea but no vomiting. No fevers. No urinary symptoms. States she started with a right lower tooth ache that is rating to her right ear today. Took Advil around 1030 this morning with some relief. Denies any COVID-19 exposure. PE: Alert and oriented x3. Lungs: Clear to auscultation without rales, rhonchi, wheezes. Heart: Regular rate rhythm without murmurs, rubs, gallops. I have greeted and performed a rapid initial assessment of this patient. A comprehensive ED assessment and evaluation of the patient, analysis of test results and completion of the medical decision making process will be conducted by additional ED providers. I have specifically instructed the patient or family members with the patient to immediately return to any nursing staff should anything change in the patient's condition or with their chief complaint. TRAVEL OUTSIDE OF THE [place] IN LAST 30 DAYS: No - Related Data Allergies/Adverse Reactions: iodine Allergy (Verified 04/28/19 02:25) Shellfish * [Shellfish] Allergy (Verified 04/28/19 02:25) swelling shellfish derived Allergy (Verified 04/28/19 02:25) strawberry Allergy (Verified 04/28/19 02:25) swelling Past Medical History - Social History Chew tobacco use (# tins/day): No Frequency of alcohol use: None Drug Abuse: None Family history: Reviewed & Not Pertinent Pulmonary Medical History: Reports: Hx Asthma Neurological Medical History: Reports: Hx Migraine Renal/ Medical History: Denies: Hx Peritoneal Dialysis Psychiatric Medical History: Reports: Hx Attention Deficit Hyperactivity Disorder, Hx Bipolar Disorder, Hx Depression, Hx Post Traumatic Stress Disorder, Hx Schizophrenia Past Surgical History: Reports: Hx Oral Surgery - Immunizations Immunizations up to date: Yes Hx Diphtheria, Pertussis, Tetanus Vaccination: Yes Physical Exam - Vital signs Vitals: Temp Pulse Resp BP Pulse Ox 98.4 F 75 22 H 118/67 100 05/09/20 15:33 05/09/20 15:33 05/09/20 15:33 05/09/20 15:33 05/09/20 15:33 Course - Vital Signs Vital signs: Temp Pulse Resp BP Pulse Ox 98.4 F 75 22 H 118/67 100 05/09/20 15:33 05/09/20 15:33 05/09/20 15:33 05/09/20 15:33 05/09/20 15:33
[2020-05-09 17:24] LABS: ABSOLUTE EOSINOPHILS # (AUTO) 0.1 10^3/uL (0.0-0.6); ABSOLUTE LYMPHOCYTES (AUTO) 1.2 10^3/uL (0.5-4.7); ABSOLUTE MONOCYTES (AUTO) 0.5 10^3/uL (0.1-1.4); ABSOLUTE NEUT (AUTO) 4.3 10^3/uL (1.7-8.2); BASOPHILS % (AUTO) 0.5 % (0-2); EOSINOPHILS % (AUTO) 1.9 % (0-6); HEMATOCRIT 34.5 % (36.0-47.0); HEMOGLOBIN 11.2 g/dL (12.0-15.5); LYMPHOCYTES % (AUTO) 19.2 % (13-45); MEAN CORPUSCULAR HEMOGLOBIN 23.9 pg (27.0-33.4); MEAN CORPUSCULAR HGB CONC 32.5 g/dL (32.0-36.0); MEAN CORPUSCULAR VOLUME 73 fl (80-97); MONOCYTES % (AUTO) 7.6 % (3-13); PLATELET COUNT 353 10^3/uL (150-450); RED BLOOD COUNT 4.71 10^6/uL (3.72-5.28); RED CELL DISTRIBUTION WIDTH 16.9 % (11.5-14.0); SEGMENTED NEUTROPHILS % (AUTO) 70.8 % (42-78); TOTAL CELLS COUNTED % (AUTO) 100 %
[2020-05-09 17:37] LABS: APPEARANCE,URINE CLOUDY; BILIRUBIN,URINE NEGATIVE (NEGATIVE); COLOR,URINE YELLOW; GLUCOSE, URINE NEGATIVE (NEGATIVE); KETONES,URINE NEGATIVE (NEGATIVE); LEUKOCYTE ESTERASE,URINE TRACE (NEGATIVE); NITRITE,URINE NEGATIVE (NEGATIVE); PROTEIN,URINE 100 mg/dL (NEGATIVE)
[2020-05-09 17:48] LABS: ALBUMIN 3.8 g/dL (3.5-5.0); ALKALINE PHOSPHATASE 88 U/L (38-126); ASPARTATE AMINO TRANSFERASE 18 U/L (14-36); BILIRUBIN,DIRECT 0.2 mg/dL (0.0-0.4); BILIRUBIN,TOTAL 0.2 mg/dL (0.2-1.3); BLOOD UREA NITROGEN 15 mg/dL (7-20); CARBON DIOXIDE 33 mmol/L (22-30); CHLORIDE 102 mmol/L (98-107); GLUCOSE 92 mg/dL (75-110); TOTAL PROTEIN 7.2 g/dL (6.3-8.2)
[2020-05-09 17:49] LABS: ANION GAP 4 (5-19)
[2020-05-09] MEDS ORDERED: PENICILLIN V POTASSIUM 500 MG TABLET PO ONE (20:40)
[2020-05-09] MEDS ORDERED: LIDOCAINE 2% VISCOUS SOLN 15 ML UDCUP PO ONE (20:40)
[2020-05-09] MEDS ORDERED: HYDROCODONE/ACETAMINOPHEN 5-325 MG TABLET PO ONE (20:40)
--- NOTE | 2020-05-09 20:41 | ER Document Report ---
ED Oral Problem - General Chief Complaint: Abdominal Pain Stated Complaint: TOOTHACHE Time Seen by Provider: 05/09/20 16:28 Primary Care Provider: GLENYS JARAMILLO DO [Primary Care Provider] - Follow up as needed Mode of Arrival: Ambulatory Information source: Patient Notes: 25-year-old female presented to ED for complaint of abdominal pain x2 weeks. She states she has general as cramping it comes and goes. States she has intermittent nausea no vomiting and no fever. Patient states the main reason she is here is she is got a right lower back tooth that is causing her pain that is radiating up to her ear and into her head. She states she is got a bad tooth that she does not have Medicaid yet and cannot go to the dentist because she gets her Medicaid. She states she had been taking Tylenol and Advil with no relief. Constitutional: Negative for fever. HENT: Dental pain right lower molar there is most of the tooth missing there is a large cavity with minimal redness and swelling around the tooth. Eyes: Negative for visual changes. Cardiovascular: Negative for chest pain. Respiratory: Negative for shortness of breath. Gastrointestinal: States she has had generalized abdominal pain for more than 2 weeks. She states she has irregular bowel movements not sure if she had one today. She denies any nausea or vomiting today. Genitourinary: Negative for dysuria. Musculoskeletal: Negative for back pain. Skin: Negative for rash. Neurological: Negative for headaches, weakness or numbness. 10 point ROS negative except as marked above and in HPI. PHYSICAL EXAMINATION: GENERAL: Well-appearing, well-nourished and in no acute distress. HEAD: Atraumatic, normocephalic. EYES: Pupils equal round extraocular movements intact, conjunctiva are normal. ENT: Dental cavity in the right lower molar large portion of the tooth missing. There is mild redness and swelling around the tooth. NECK: Normal range of motion LUNGS: No respiratory distress Gastrointestinal: Patient has a nonsurgical abdomen. Very soft no point tenderness hyperactive bowel sounds. Musculoskeletal: Normal range of motion NEUROLOGICAL: Normal speech, normal gait. PSYCH: Normal mood, normal affect. SKIN: Warm, Dry, normal turgor, no rashes or lesions noted. TRAVEL OUTSIDE OF THE [place] IN LAST 30 DAYS: No - Related Data Allergies/Adverse Reactions: iodine Allergy (Verified 04/28/19 02:25) Shellfish * [Shellfish] Allergy (Verified 04/28/19 02:25) swelling shellfish derived Allergy (Verified 04/28/19 02:25) strawberry Allergy (Verified 04/28/19 02:25) swelling Past Medical History - General Information source: Patient - Social History Smoking Status: Never Smoker Chew tobacco use (# tins/day): No Frequency of alcohol use: None Drug Abuse: None Family History: Reviewed & Not Pertinent, Other - gall bladder Pulmonary Medical History: Reports: Hx Asthma Neurological Medical History: Reports: Hx Migraine Renal/ Medical History: Denies: Hx Peritoneal Dialysis Psychiatric Medical History: Reports: Hx Attention Deficit Hyperactivity Disorder, Hx Bipolar Disorder, Hx Depression, Hx Post Traumatic Stress Disorder, Hx Schizophrenia Past Surgical History: Reports: Hx Oral Surgery - Immunizations Immunizations up to date: Yes Hx Diphtheria, Pertussis, Tetanus Vaccination: Yes Physical Exam - Vital signs Vitals: Temp Pulse Resp BP Pulse Ox 98.4 F 75 22 H 118/67 100 05/09/20 15:33 05/09/20 15:33 05/09/20 15:33 05/09/20 15:33 05/09/20 15:33 Course - Re-evaluation Re-evalutation: 05/09/20 21:43 Discussed lab work with patient written report of lab work was given to patient. Patient has hyperactive bowel sounds nonsurgical stomach. Pain has been there for a long time. She does have a cavity to a back molar and I did give her penicillin VK 1 [place] and viscous lidocaine for treatment of this cavity. I did encourage her to follow-up with a dentist. She states she did not have insurance and I told her that treatment plan was better than living with pain. She did agree to go and find herself a dentist to take care of this large cavity. Patient verbalized understanding and agreement with treatment plan and patient was discharged home. - Vital Signs Vital signs: Temp Pulse Resp BP Pulse Ox 98 F 70 20 111/80 100 05/09/20 21:03 05/09/20 21:03 05/09/20 21:03 05/09/20 21:03 05/09/20 21:03 - Laboratory Results Result Diagrams: 05/09/20 17:00 05/09/20 17:00 Laboratory Results Interpreted: 05/09/20 05/09/20 05/09/20 17:00 17:00 17:00 Hgb 11.2 L Hct 34.5 L MCV 73 L MCH 23.9 L RDW 16.9 H Carbon Dioxide 33 H Anion Gap 4 L Urine Protein 100 H Urine Urobilinogen 2.0 H Ur Leukocyte Esterase TRACE H Critical Laboratory Results Reviewed: No Critical Results - Radiology Results Critical Radiology Results Reviewed: No Critical Results Discharge - Discharge Clinical Impression: Pain due to dental caries Abdominal pain Qualifiers: Abdominal location: generalized Qualified Code(s): R10.84 - Generalized abdom inal pain Condition: Stable Disposition: HOME, SELF-CARE Additional Instructions: ABDOMINAL PAIN: There are many causes of abdominal pain. Pain can mean a serious problem requiring surgery (such as appendicitis). It can also be an innocent problem that goes away on its own (such as a viral infection). Often, time must pass to determine the cause of pain. The physician does not feel that hospitalization is necessary, at present. Things may change within the next 24 hours. Call the doctor or come back for re- examination if any problems occur, such as: (1) Pain that becomes more severe, steady, or becomes concentrated in one specific area. Also, pain that is more severe with movement or coughing. (2) Vomiting that persists or becomes more frequent. (3) Blood in the vomitus, urine, or bowel movements. Blood in the stool may have a tarry or black appearance. (4) Shaking chills or fever greater than 100 degrees F. (5) The abdomen becomes more distended or swollen. (6) Bowel movements cease. (7) Failure to improve as expected. Constipation Constipation is a common problem. It is especially likely as you get older. Constipation is a common cause of abdominal pain, but sometimes causes no symptoms at all. Causes of constipation include certain medications, dehydration, diets, inactivity, and low-fiber intake. Rarely, it can be a sy mptom of underlying disease. The physician has evaluated you for this. Avoid constipation by eating a diet high in fiber, fruits, and vegetables. Drink plenty of liquids. Get regular exercise. If possible, avoid constipating medicines like narcotic pain medication. Some vitamin tablets can cause constipation. Stool softeners may be needed for difficult cases. An excellent stool softener is Konsyl which is available at [employer], and [employer] drug [employer]. Just add a teaspoon to a glass of pineapple or orange juice daily or twice a day if needed. Laxatives are useful for occasional constipation. You should use them only when necessary. Too-frequent use can make your bowels dependent on them. Some over the counter laxatives available without prescription are: Milk of Magnesia, 1-2 tablespoons twice a day Dulcolax, 5 mg pill or 10 mg suppository. Citrate of Magnesia, 4-5 ounces a day for a day or two For acute constipation, Fleet's Enemas and Dulcolax suppositories are helpful. Chronic, residential use of laxatives or enemas is not a good idea. Your bowel may become dependant on them. You do not need to have a bowel movement every day. Many people do fine with a bowel movement every three or four days. You should call your doctor or return for re-evaluation if you pass blood in the stool, or if you develop fever or increasing abdominal pain. TOOTHACHE: Your pain is due to dental decay. The tooth must be repaired in order for you to feel better. You will, therefore, be referred to a dentist. We do not have dentists on the staff at [facility]. Severe swelling or drainage around a tooth usually means a dental abscess. This also requires evaluation and treatment by the dentist, but antibiotics may be prescribed while awaiting dental treatment. You should be rechecked immediately if you develop major swelling of the face, increasing pain, a lump in the jaw or gums, headache, difficulty swal lowing, or fever. You have been given a syringe of viscous lidocaine for this dental pain. Please place a small amount on the tooth and the surrounding gums every 4 hours. Please do not use it more often than every 4 hours or it can erode the skin on your gums and cause him more pain and problems. Salt and soda solution 1 quart of water 1 tablespoon of salt 1 teaspoon of baking soda Mixed 3 ingredients together and boil for 1 minute Placed in a covered quart jar Use 1/2 ounce of cold solution to gargle 3 times a day ORAL NARCOTIC MEDICATION: You have been given a couple for pain control. This medication is a narcotic. It's best taken with food, as nausea can result if taken on an empty stomach. Don't operate machinery or drive within six hours of taking this medication. Do not combine this medicine with alcohol, or with any medication which can cause sedation (such as cold tablets or sleeping pills) unless you get permission from the physician. Narcotics tend to cause constipation. If possible, drink plenty of fluids and eat a diet high in fiber and fruits. Please be aware that prescription narcotics also have the potential for abuse. People become addicted to these medications because of the general sense of wellbeing that they induce. This feeling along with a significant reduction in tension, anxiety, and aggression provides a stimulating seductive quality to these drugs. Once your pain is under control, we encourage you to discard your unused narcotics. PENICILLIN V K: You have been given a prescription for Penicillin VK. Your physician has determined that this is the best antibiotic for your condition. Pen VK can be taken with meals, however more of the antibiotic gets into the bloodstream if it's taken on an empty stomach. Penicillin usually has no side effects. However, allergy to penicillins is common. If you have had an allergic reaction to any drug of the penicillin family, you should never take any other penicillin. Notify your doctor at once if you develop hives, itching, swelling, faintness, or shortness of breath. FOLLOW-UP CARE: You have been referred for follow-up care to the dentists listed below. Call the dentists office for an appointment as you were instructed or within the next two days. If you experience worsening or a significant change in your symptoms, notify the physician immediately or return to the Emergency Department at any time for re-evaluation. [facility] [address] [place] [address] [facility] [address] [facility]. [facility] [address] [facility] [address] [facility]. [facility] [address] [facility]. [email or web address] [address] [place] [address] Tuesday- 8:00am to 5:00 pm Will see patients from other [facility]. Charges based on income and family size and accepts Medicare, Medicaid, and Insurances Will pull molars [facility], [facility]. [address] Hours of Operation 8:00 am - 4:30 pm weekdays The following dental offices accept Medicaid: [facility] Dr. Sawyer Dr[address] Morales Dr. Cleary Dr. Moore Lizandro Crocker, [place], and [place] oral surgery Dr. Gold ([place]) Dr. Dey ([place]) [facility] Drs. Mckay ([place]) Dr. Shelley ([place]) [facility] Dr. Li ([place]) Drs. Gurrola and ([place]) Medicaid Care Line Prescriptions: Penicillin V Potassium [Penicillin Vk 500 mg Tablet] 500 mg PO BID #20 tablet Referrals: GLENYS JARAMILLO DO [Primary Care Provider] - Follow up as needed
[2020-05-09 21:04] VITALS: BP 111/80
== END 2020-05-09 21:04 | disposition home or self-care (01) ==
LOC: ER 15:13
DX: K02.9 Dental caries, unspecified (principal); R10.84 Generalized abdominal pain; R11.0 Nausea; J45.909 Unspecified asthma, uncomplicated; Z91.013 Allergy to seafood; Z91.018 Allergy to other foods
CPT/HCPCS: 99283; 36415; 83690; 84703; 85025; 81025; 80053; 81001; S0119; J3490